=== PATIENT | female | born 1950 | race Caucasian/White ===

== ENCOUNTER 2018-04-26 18:23 | Emergency (ER) | payer MEDICARE, OTHER, SELFPAY ==
[2018-04-26 18:26] VITALS: BP 124/61; PULSE 60; RESP 12; TEMP 36.9; O2SAT 96; BMI 22.9
--- NOTE | 2018-04-26 18:28 | ED.LOWEXIN ---
HPI - Extremity Injury (Lower) General Chief Complaint: Extremity Injury, Lower Stated Complaint: GLF Time Seen by Provider: 04/26/18 18:27 Source: patient and EMS Mode of arrival: EMS Limitations: no limitations History of Present Illness HPI Narrative: Patient is a 68-year-old female who presents with right knee pain. She was on a retaining wall about 4-5 feet when she fell backwards landing on her right knee extended. It is now in a flexed position and she cannot extend it. She has pain laterally no numbness or tingling. No other injuries. She says that her left leg caught her. She did not fall backwards sitter had no pelvic pain MD complaint: knee injury Related Data Home Medications Medication Instructions Recorded Confirmed CALCIUM CARBONATE 1,000 mg PO QDAY #0 05/08/13 Fish Oil (Fish Oil 500 MG Softgel) 850 mg PO Q DAY #0 05/08/13 VITAMIN D (Vitamin D3) 1,000 unit PO QDAY #0 05/08/13 multivitamin [Multiple Vitamins] 1 tab PO QDAY #0 03/21/17 [TURKEY TAIL] Q DAY #0 04/14/17 [TUMERIC] PO BID #0 09/02/17 Previous Rx's Medication Instructions Recorded letrozole [Femara] 2.5 mg PO QDAY #90 tab 06/03/17 Allergies Allergy/AdvReac Type Severity Reaction Status Date / Time adhesive Allergy Mild SENSITIVE Verified 04/26/18 18:39 cephalexin Allergy Mild RASH Verified 04/26/18 18:39 erythromycin base Allergy Mild RASH Verified 04/26/18 18:39 naproxen Allergy Mild RASH Verified 04/26/18 18:39 Penicillins Allergy Mild RASH Verified 04/26/18 18:39 Sulfa (Sulfonamide Allergy Mild RASH Verified 04/26/18 18:39 Antibiotics) morphine AdvReac Mild N/V Verified 04/26/18 18:39 Review of Systems Review of Systems GENERAL: Denies chills, fatigue, malaise, fever, sweats, travel HEENT: Denies sinus pain, ear pain, sore throat, difficulty swallowing, neck pain RESPIRATORY: Denies dyspnea, cough, wheezing, hemoptysis, sputum. CARDIOVASCULAR: Denies chest pain, palpitations, orthopnea, edema GASTROINTESTINAL: Denies nausea, vomiting, abdominal pain, diarrhea, constipation, melena. : Denies dysuria, frequency, incontinence, hematuria, urinary retention, flank pain. MUSCULOSKELETAL: See HPI, denies back pain, pelvic pain, ankle pain SKIN: No rash, no erythema, no pruritus NEUROLOGIC: Denies head injury, headache, weakness, dizziness PSYCHIATRIC: No concerning psychosocial issues. 12 point review of systems is negative except for those stated above and HPI PFSH Medical History Breast cancer (Acute) Surgical History Status post surgery (06/08/13) Social History Smoking Status: Never smoker alcohol intake: never substance use type: does not use Exam Initial Vital Signs Initial Vital Signs: Vital Signs Temperature 98.4 F 04/26/18 18:26 Pulse Rate 60 04/26/18 18:26 Respiratory Rate 12 04/26/18 18:26 Blood Pressure 124/61 H 04/26/18 18:26 Pulse Oximetry 96 04/26/18 18:26 GENERAL: Well-appearing, well-nourished and in no acute distress. HEENT: Head atraumatic,EOMI, pupils reactive, NECK: Supple no vertebral tenderness no step-offs full range of motion CARDIOVASCULAR: Regular rate and rhythm without murmurs, rubs or gallops. RESPIRATORY: Breath sounds equal bilaterally, no wheezes rales or rhonchi. ABDOMEN: Soft, nontender. Normoactive bowel sounds all 4 quadrants. No guarding or rebound. BACK: No vertebral tenderness no step-off no sign of trauma EXTREMITIES: Normal range of motion, no clubbing or edema. Neurovascularly intact -right knee held in flexion no erythema no edema distal pedal pulse intact. Tender over fibular head no ankle or foot deformity pelvis stable no hip pain NEUROLOGICAL: Alert and oriented x4.Normal gait and speech. Cranial nerves II through XII grossly intact. SKIN: Warm, dry, no laceration, no petechiae, no rashes or lesions. Course Orders Ordered: ED Orders 04/26/18 18:28 XR knee RT 3V Stat 04/26/18 18:50 XR ankle RT min 3V Stat XR pelvis 1-2V Stat 04/26/18 20:59 Basic Metabolic Panel Stat 04/26/18 21:30 Complete Blood Count AUTO DIFF Stat Discontinued Medications Morphine Sulfate (Morphine) 2 mg IV NOW ONE Stop: 04/26/18 18:52 Last Admin: 04/26/18 19:11 Dose: 2 mg Morphine Sulfate (Morphine) 2 mg IV NOW ONE Stop: 04/26/18 21:19 Last Admin: 04/26/18 21:19 Dose: 2 mg Ondansetron HCl (Zofran) 4 mg IV NOW ONE Stop: 04/26/18 18:52 Last Admin: 04/26/18 21:37 Dose: Not Given Consultations Consultation #1: Dr. Mtz has reviewed the films himself. Due to significant amount of depression recommends transfer to [facility]. Time: 19:30 Consultation #2: ER physician Dr. Hernandez at [facility] has accepted patient. They are currently boarding 65 patient is in the ED. If able to transfer elsewhere would be appreciated if not, they will accept. Time: 20:00 Consultation #3: Orthopedics Dr. Perez at [facility] has been updated patient's symptoms test results neurological status. Images have been pushed. He does accept patient for transfer. Time: 20:20 Vital Signs - 8 hr 04/26/18 18:26 04/26/18 18:31 04/26/18 21:53 Temperature 98.4 F Pulse Rate 60 74 Pulse Rate [Bilateral Dorsalis Pedis] 60 Respiratory Rate 12 18 Blood Pressure 124/61 H 131/68 H Pulse Oximetry 96 98 MDM - Extremity Injury (Lower) Lab Data Result diagrams: 04/26/18 21:30 04/26/18 20:59 Lab Results 04/26/18 04/26/18 Range/Units 20:59 21:30 WBC 9.7 (4.5-11.0) X10^3/uL RBC 4.09 (4.0-5.2) X10^6/uL Hgb 13.2 (12.0-16.0) g/dL Hct 38.7 (36-46) % MCV 94.7 (80-100) fL MCH 32.2 (26-34) PG MCHC 34.0 (30-36) % RDW 12.8 (11.6-14.8) % Plt Count 203 (150-400) X10^3/uL Neut % (Auto) 86.0 H (50-75) % Lymph % (Auto) 10.0 L (25-40) % [place] % (Auto) 3.6 (3-14) % Eos % (Auto) 0.1 L (2-4) % Baso % (Auto) 0.3 (0-2) % Neut # (Auto) 8300 H (2184-9878) /uL Sodium 138 (137-145) mmol/L Potassium 4.7 (3.4-5.1) mmol/L Chloride 103 (98-107) mmol/L Carbon Dioxide 27 (22-32) mmol/L BUN 14 (7-17) mg/dL Creatinine 0.80 (0.52-1.04) mg/dL Estimated GFR > 60.0 (>60) mL/min BUN/Creatinine Ratio 17.5 (6-22) Glucose 106 (80-110) mg/dL Calcium 9.0 (8.4-10.2) mg/dL Imaging Data Right knee x-r: Radiologist's impression: PROCEDURE: XR KNEE RT 3V INDICATIONS: fall off wall, pain lateraly TECHNIQUE: 2 views of the knee were acquired. COMPARISON: None. FINDINGS: Bones: Lateral tibial plateau fracture with at least 4 mm step-off at the articular surface. Fractures likely involves the tibial spines. Soft tissues: Small joint effusion. No suspicious soft tissue calcifications. IMPRESSION: Lateral tibial plateau fracture. Dictated by: Sammy Helton M.D. on 04/26/2018 at 19:15 Right ankle xray: Radiologist's impression: PROCEDURE: XR ANKLE RT MIN 3V INDICATIONS: right knee fx TECHNIQUE: 3 views of the ankle were acquired. COMPARISON: None. FINDINGS: Bones: No fractures or dislocations. Ankle mortise is normally aligned. No suspicious bony lesions. Soft tissues: No tibiotalar joint effusion. Achilles tendon appears normal. IMPRESSION: No acute fractures or dislocations. Dictated by: Sammy Helton M.D. on 04/26/2018 at 19:29 pelvis xray: Radiologist's impression: PROCEDURE: XR PELVIS 1-2V INDICATIONS: right knee fx TECHNIQUE: Single view(s) of the pelvis acquired. COMPARISON: None. FINDINGS: Bones: No fractures or dislocations. No suspicious bony lesions. Soft tissues: Visualized bowel gas pattern is normal. No suspicious soft tissue calcifications. Abdominal surgical sutures. IMPRESSION: No acute fractures or dislocations. If there is clinical concern for radiographically occult fracture than a noncontrast MRI would be recommended for further evaluation. Dictated by: Sammy Helton M.D. on 04/26/2018 at 19:30 MDM Narrative Medical decision making narrative: Patient and family would prefer [facility] over [facility] transfer due to limited driving ability. [facility] accepts patient. Discharge Plan Departure Patient Disposition: [facility] Clinical Impression: Closed fracture of tibial plateau Discharge Date/Time: 04/26/18 21:45 Interventions: ED Discharge Assessment Last Done: 04/26/18 21:53 Prescriptions: No Action CALCIUM CARBONATE 1,000 mg PO QDAY Qty: 0 RF: 0 Fish Oil (Fish Oil 500 MG Softgel) 850 mg PO Q DAY Qty: 0 RF: 0 VITAMIN D (Vitamin D3) 1,000 unit PO QDAY Qty: 0 RF: 0 multivitamin [Multiple Vitamins] 1 EACH tablet 1 tab PO QDAY Qty: 0 RF: 0 [TURKEY TAIL] Q DAY Qty: 0 RF: 0 letrozole [Femara] 2.5 MG tablet 2.5 mg PO QDAY Qty: 90 RF: 3 [TUMERIC] PO BID Qty: 0 RF: 0
[2018-04-26 18:31] VITALS: PULSE 60
--- NOTE | 2018-04-26 18:50 | DI.RAD.S_ITS ---
PROCEDURE: XR ANKLE RT MIN 3V INDICATIONS: right knee fx TECHNIQUE: 3 views of the ankle were acquired. COMPARISON: None. FINDINGS: Bones: No fractures or dislocations. Ankle mortise is normally aligned. No suspicious bony lesions. Soft tissues: No tibiotalar joint effusion. Achilles tendon appears normal. IMPRESSION: No acute fractures or dislocations. Dictated by: Sammy Helton M.D. on 04/26/2018 at 19:29 Approved by: Sammy Helton M.D. on 04/26/2018 at 19:29
--- NOTE | 2018-04-26 18:50 | DI.RAD.S_ITS ---
PROCEDURE: XR PELVIS 1-2V INDICATIONS: right knee fx TECHNIQUE: Single view(s) of the pelvis acquired. COMPARISON: None. FINDINGS: Bones: No fractures or dislocations. No suspicious bony lesions. Soft tissues: Visualized bowel gas pattern is normal. No suspicious soft tissue calcifications. Abdominal surgical sutures. IMPRESSION: No acute fractures or dislocations. If there is clinical concern for radiographically occult fracture than a noncontrast MRI would be recommended for further evaluation. Dictated by: Sammy Helton M.D. on 04/26/2018 at 19:30 Approved by: Sammy Helton M.D. on 04/26/2018 at 19:31
[2018-04-26] MEDS: MORPHINE 2 MG/ML INJ IV ×2 (19:11→21:19)
--- NOTE | 2018-04-26 20:43 | PC.NURSE ---
Gave report to AYALA Corley at [address] [place] [address].
[2018-04-26 21:33] LABS: BUN Creatinine Ratio 17.5 (6-22); Blood Urea Nitrogen 14 mg/dL (7-17); Carbon Dioxide 27 mmol/L (22-32); Chloride 103 mmol/L (98-107); Estimated Glomerular Filt Rate > 60.0 mL/min (>60); Glucose 106 mg/dL (80-110); Potassium 4.7 mmol/L (3.4-5.1); Sodium 138 mmol/L (137-145)
[2018-04-26 21:35] LABS: HEMOLYSIS 57 (0-50)
[2018-04-26 21:46] LABS: Add Manual Diff / Slide Review NO; Basophils Percent Auto 0.3 % (0-2); Eosinophils Percent Auto 0.1 % (2-4); Hematocrit 38.7 % (36-46); Hemoglobin 13.2 g/dL (12.0-16.0); Mean Corpuscular Hemoglobin 32.2 PG (26-34); Mean Corpuscular Volume 94.7 fL (80-100); Monocytes Percent Auto 3.6 % (3-14); Neutrophils Absolute Auto 8300 /uL (3000-5900); Platelet Count 203 X10^3/uL (150-400); Red Blood Cell Count 4.09 X10^6/uL (4.0-5.2); Red Cell Distribution Width 12.8 % (11.6-14.8); White Blood Cell Count 9.7 X10^3/uL (4.5-11.0)
[2018-04-26 21:53] VITALS: BP 131/68; PULSE 74; RESP 18; O2SAT 98
== END 2018-04-26 21:45 | disposition short-term general hospital (02) ==
PROVIDERS: Emergency Provider Emergency Medicine; Family Provider Family Medicine; PCP Family Medicine
DX: S82.143A Displaced bicondylar fracture of unspecified tibia, initial encounter for closed fracture (principal); W17.89XA Other fall from one level to another, initial encounter
CPT/HCPCS: 29515; 29530; 72170; 73562; 73610; 80048; 85025; 96374; 96375; 96376; 99282; 99285; J2270

== ENCOUNTER → 2018-05-13 08:00 | Outpatient (CLI) | payer MEDICARE, OTHER, SELFPAY ==
[2018-05-13 09:45] LABS: Alanine Aminotransferase 32 IU/L (9-52); Albumin 4.2 g/dL (3.5-5.0); Albumin Globulin Ratio 1.4 (1.0-2.8); Alkaline Phosphatase 74 U/L (38-126); Aspartate Aminotransferase 33 IU/L (14-36); Bilirubin Total 0.6 mg/dL (0.2-1.3); Blood Urea Nitrogen 14 mg/dL (7-17); Calcium 9.5 mg/dL (8.4-10.2); Carbon Dioxide 32 mmol/L (22-32); Chloride 99 mmol/L (98-107); Estimated Glomerular Filt Rate > 60.0 mL/min (>60); Globulin 2.9 g/dL (1.7-4.1); Glucose 101 mg/dL (80-110); HEMOLYSIS < 15 (0-50); Potassium 4.7 mmol/L (3.4-5.1); Sodium 138 mmol/L (137-145); Total Protein 7.1 g/dL (6.3-8.2)
[2018-05-16 15:51] LABS: Cancer Antigen 27.29 14 U/mL (< 38)
== END ==
PROVIDERS: Family Provider Family Medicine; PCP Family Medicine; Visit Provider Internal Medicine Hematology & Oncology
DX: C50.911 Malignant neoplasm of unspecified site of right female breast (principal)
CPT/HCPCS: 36415; 80053; 86300

== ENCOUNTER → 2018-05-23 11:34 | Outpatient (CLI) | payer MEDICARE, OTHER, SELFPAY | PROVIDERS: Family Provider Family Medicine; PCP Family Medicine; Visit Provider Internal Medicine Hematology & Oncology | DX: C50.911 Malignant neoplasm of unspecified site of right female breast (principal); C50.912 Malignant neoplasm of unspecified site of left female breast; M85.80 Other specified disorders of bone density and structure, unspecified site; Z79.811 Long term (current) use of aromatase inhibitors | CPT/HCPCS: 36415 ==

== ENCOUNTER 2018-11-01 11:15 | Outpatient (RCR) | payer MEDICARE, OTHER, SELFPAY ==
--- NOTE | 2018-07-20 12:39 | PT.OIE ---
Current Diagnoses Unspecified abnormalities of gait and mobility (07/19/18) Displaced bicondylar fracture of right tibia, initial encounter for closed fracture (07/19/18) Past Medical History (Last Updated 04/26/18 @ 20:51 by Gin Grey DO) Breast cancer (Acute) Past Surgical History Status post surgery (06/08/13) Provider Visit Care Team Role Provider Type Alex Mcgregor MD Family Provider Physician Primary Care Provider Specialty: Family Practice Address: [address] [place] [address], [id number] Email: Jerardo Venegas MD Attending Provider Non-Staff Specialty: Orthopedic Surgery Address: [address] [place] [address], [id number] Email: Physical Therapy Initial Evaluation PT-OP-A Visit Information Start: 07/19/18 07:53 Freq: Status: Active Protocol: Document 07/19/18 10:15 AMB (Rec: 07/20/18 07:30 AMB [email or web address]) Out-Patient Physical Therapy Visit Information Visit Information Visit Type Initial Evaluation Visit Start Time 10:15 Visit Stop Time 11:00 Total Visit Minutes 45 Visit Number 1 Number of MAGAZINE GRINDER LOADER Visits 0 Evaluation Information Evaluation Date 07/19/18 PT-OP-B Current Condition Start: 07/19/18 07:53 Freq: Status: Active Protocol: Document 07/19/18 10:15 AMB (Rec: 07/20/18 07:30 AMB [email or web address]) Current Condition History of Current Condition Onset Date 04/27/18 Current Complaints Difficulty walking, bending the knee, standing History of Current Condition The patient fell off a retaining wall in April while gardening. She had an ORIF for right lateral tibial plateau fracture. She has been cleared for WBAT as of . She has previously completed home health physical therapy. She lives in a 2 story home with 4 steps to enter (1 railing) with her who has his own mobility deficits and uses a motorized scooter in the community. She is currently using a FWW both in the home and the community. Prior Treatments and Tests Prior home health Treatment Goals Patient/Caregiver Goals Lift 35# into the car to get 's scooter into the trunk. Return to walking around [facility] (2 miles, hilly, without assistive device). Prior Functional Status Baseline Function- ADL's Independent Baseline Function- Mobility Independent Baseline Function- Gait Community ambulator without assistive device Baseline Function- Recreation/Hobbies Gardening Current Functional Impairments (Reported) Functional Limitations- ADL's Ambulates with FWW, has friends bring over meals, Functional Limitations- Mobility/Gait Can't carry anything up or down stairs, must use rail Personal Factors Other Personal Factors That May Effect History of breast cancer 1 Therapy/Recovery year ago, caregiver for her PT-OP-C Subjective Start: 07/19/18 07:53 Freq: Status: Active Protocol: Document 07/19/18 10:15 AMB (Rec: 07/20/18 07:30 AMB [email or web address]) Patient Questionnaires Lower Extremity Functional Scale LEFS Score 27 LEFS Impairment 60 to 79% Impaired (Score 17- 31) OP-PT Pain Assessment Pain Assessment Grid Paper Pain Assessment Grid Completed Yes Location Right Knee Intensity 1 Scale Used Numeric (1 - 10) Description Aching PT-OP-D Balance Start: 07/19/18 07:53 Freq: Status: Active Protocol: Document 07/19/18 10:15 AMB (Rec: 07/20/18 07:30 AMB [email or web address]) OP-PT Balance Assessment Sitting Balance Static Sitting Balance Ability Normal Standing Balance Static Standing Balance Ability Fair Dynamic Standing Balance Ability Fair Device Used FWW Standing Balance Comments Can stand without FWW with WBOS- but difficulty weightbearing fully on R side. Can single leg stand on L for 10 seconds, 3 seconds on R . No current foot pain on R, but initially it hurt after fall. Renteria Fall Scale Copyright Permission Myra JM, Myra RM, Sonja SJ. Development of a scale to identify the fall- prone patient. Can J Aging 1989;8;366-7. [place] Renteria (2009). Preventing patient falls. (2nd ed). Barnes: [place]. PT-OP-G Mobility & Gait Start: 07/19/18 07:53 Freq: Status: Active Protocol: Document 07/19/18 10:15 AMB (Rec: 07/20/18 07:30 AMB [email or web address]) OP Gait Assessment Gait Gait Assistance Required: Standby Assistance Able to Maintain Weight Bearing Status Yes During Gait Assistive Devices Assistive Device Straight Cane Front Wheeled Walker Stair Climbing Evaluation Evaluation Level of Assist On Stairs Standby Assistance Devices Stair Climbing Assistive Devices Left Railing Right Railing Technique/Endurance Stair Climbing Direction Ascend and Descend Stair Climbing Technique Step Over Step Step to Step Number of Steps Climbed 6 Comments Stair Climbing Comments poor control on descend with step over step PT-OP-J Posture/Palpation/Skin Start: 07/20/18 12:35 Freq: Status: Active Protocol: Document 07/19/18 10:15 AMB (Rec: 07/20/18 12:39 AMB [email or web address]) Skin Assessment Edema Assessment Left Leg Edema Degree 1+ Comments From knee into foot PT-OP-K Range of Motion Start: 07/19/18 07:53 Freq: Status: Active Protocol: Document 07/19/18 10:15 AMB (Rec: 07/20/18 08:23 AMB [email or web address]) Knee Goniometric Range of Motion Knee Measured in Degrees Left Knee ROM WFL Yes Right Flexion Active (degrees) 109 Flexion Passive (degrees) 111 Extension Active (degrees) 12 Extension Passive (degrees) 5 PT-OP-M Strength Start: 07/19/18 07:53 Freq: Status: Active Protocol: Document 07/19/18 10:15 AMB (Rec: 07/20/18 08:44 AMB [email or web address]) Hip Strength Hip Manual Muscle Testing Right Flexion (L2) 4+ Good+ Extension (S1) 4 Good Abduction 4 Good Left Flexion (L2) 5 Normal Extension (S1) 5 Normal Abduction 5 Normal Knee Strength Knee Manual Muscle Testing Right Flexion (S2) 4+ Good+ Extension (L3) 4+ Good+ Left Flexion (S2) 5 Normal Extension (L3) 5 Normal Ankle/Foot Strength Ankle and Foot Manual Muscle Testing Right Dorsiflexion (L4) 4 Good Plantarflexion (S1) 4 Good Left Dorsiflexion (L4) 5 Normal Plantarflexion (S1) 5 Normal PT-OP-Q Treatments Start: 07/19/18 07:53 Freq: Status: Active Protocol: Document 07/19/18 10:15 AMB (Rec: 07/20/18 08:44 AMB [email or web address]) Gait Training Gait Activity 2 Description stairs Device Used 2 railings Level of Assistance SBA Comments step to then alternating steps 1 Description smooth surface Device Used SPC Level of Assistance verbal cues Comments in // bars to start PT-OP-T Assessment and Plan Start: 07/19/18 07:53 Freq: Status: Active Protocol: Document 07/19/18 10:15 AMB (Rec: 07/20/18 08:44 AMB [email or web address]) Physical Therapy Assessment Rehab Potential Rehabilitation Potential Excellent Evaluation Complexity Number of Personal Factors/Comorbidities 1-2 Number of Body Systems Impaired 4 or More Clinical Presentation at Evaluation Evolving Impairments Impairments Activity Tolerance Balance Edema Functional Mobility Gait Pain ROM Strength Goals Three Impairment Strength Short Term Goal (STG) The patient will improve her LE strength so that she can safely ascend and descend a flight of stairs without needing a railing. STG Duration 4 weeks Data Entry Analyst Goal (LTG) The patient will improve her LE strength so that she can perform a full squat to lift 35# from the floor to waist level with good body mechanics . LTG Duration 8 weeks Two Impairment Range of motion Short Term Goal (STG) The patient will improve her active knee flexion to 120 degrees. STG Duration 4 weeks One Impairment Gait Short Term Goal (STG) The patient will ambulate with a SPC for 10 minutes with 1/ 10 knee pain or less. STG Duration 4 weeks Data Entry Analyst Goal (LTG) The patient will ambulate without an assistive device for 30 minutes without an increase in baseline pain. LTG Duration 8 weeks Assessment Summary Assessment The patient presents almost 2 months s/p ORIF for tibial plateau fracture. She is WBAT , but will need to progress significantly to return to her prior baseline of walking 4 miles per day. PT will assist the patient with strengthening (she continues to have functional weakness that makes controlling the knee during stair descent very difficult), improving range of motion, balance, and reducing her reliance on assistive devices and equalizing her weightbearing. Physical Therapy Plan Frequency and Duration Frequency of Treatment 2x/Week Duration of Treatment 8 weeks Plan of Care Start Date 07/19/18 Plan of Care End Date 09/13/18 Next Visit Focus/Plan Next Note Type Treatment Note Next Visit Plan Recumbent bike vs stepper. Quad strengthening. Progress gait/stair/balance training.
--- NOTE | 2018-07-20 12:42 | PT.OPPOC ---
Current Diagnoses Unspecified abnormalities of gait and mobility (07/19/18) Displaced bicondylar fracture of right tibia, initial encounter for closed fracture (07/19/18) Provider Visit Care Team Role Provider Type Alex Mcgregor MD Family Provider Physician Primary Care Provider Specialty: Family Practice Address: [address] [place] [address], [id number] Email: Jerardo Venegas MD Attending Provider Non-Staff Specialty: Orthopedic Surgery Address: [address] [place] [address], [id number] Email: Plan Of Care PT-OP-T Assessment and Plan Start: 07/19/18 07:53 Freq: Status: Active Protocol: Document 07/19/18 10:15 AMB (Rec: 07/20/18 08:44 AMB [email or web address]) Physical Therapy Assessment Rehab Potential Rehabilitation Potential Excellent Evaluation Complexity Number of Personal Factors/Comorbidities 1-2 Number of Body Systems Impaired 4 or More Clinical Presentation at Evaluation Evolving Impairments Impairments Activity Tolerance Balance Edema Functional Mobility Gait Pain ROM Strength Goals Three Impairment Strength Short Term Goal (STG) The patient will improve her LE strength so that she can safely ascend and descend a flight of stairs without needing a railing. STG Duration 4 weeks Pediatric Np Goal (LTG) The patient will improve her LE strength so that she can perform a full squat to lift 35# from the floor to waist level with good body mechanics . LTG Duration 8 weeks Two Impairment Range of motion Short Term Goal (STG) The patient will improve her active knee flexion to 120 degrees. STG Duration 4 weeks One Impairment Gait Short Term Goal (STG) The patient will ambulate with a SPC for 10 minutes with 1/ 10 knee pain or less. STG Duration 4 weeks Pediatric Np Goal (LTG) The patient will ambulate without an assistive device for 30 minutes without an increase in baseline pain. LTG Duration 8 weeks Assessment Summary Assessment The patient presents almost 2 months s/p ORIF for tibial plateau fracture. She is WBAT , but will need to progress significantly to return to her prior baseline of walking 4 miles per day. PT will assist the patient with strengthening (she continues to have functional weakness that makes controlling the knee during stair descent very difficult), improving range of motion, balance, and reducing her reliance on assistive devices and equalizing her weightbearing. Physical Therapy Plan Frequency and Duration Frequency of Treatment 2x/Week Duration of Treatment 8 weeks Plan of Care Start Date 07/19/18 Plan of Care End Date 09/13/18 Next Visit Focus/Plan Next Note Type Treatment Note Next Visit Plan Recumbent bike vs stepper. Quad strengthening. Progress gait/stair/balance training. Plan of Care Dates Plan of Care Start Date 07/19/18 Plan of Care End Date 09/13/18 Please Sign and Return: I have reviewed this Plan of Care and certify that the skilled therapy services above are required to meet the patient?s needs. Physician Signature Date Printed Name and Credentials Clinical Instructor Signature Printed Name and Credentials
--- NOTE | 2018-07-21 16:12 | PT.OTN ---
Current Diagnoses Displaced bicondylar fracture of right tibia, initial encounter for closed fracture (07/21/18) Physical Therapy Treatment Note PT-OP-A Visit Information Start: 07/19/18 07:53 Freq: Status: Active Protocol: Document 07/21/18 13:00 AMB (Rec: 07/21/18 13:07 AMB [id number]) Out-Patient Physical Therapy Visit Information Visit Information Visit Type Treatment Note Visit Start Time 13:00 Visit Stop Time 13:45 Total Visit Minutes 45 Visit Number 2 PT-OP-B Current Condition Start: 07/19/18 07:53 Freq: Status: Active Protocol: Document 07/19/18 10:15 AMB (Rec: 07/20/18 07:30 AMB [email or web address]) Current Condition History of Current Condition Onset Date 04/27/18 Current Complaints Difficulty walking, bending the knee, standing History of Current Condition The patient fell off a retaining wall in April while gardening. She had an ORIF for right lateral tibial plateau fracture. She has been cleared for WBAT as of . She has previously completed home health physical therapy. She lives in a 2 story home with 4 steps to enter (1 railing) with her who has his own mobility deficits and uses a motorized scooter in the community. She is currently using a FWW both in the home and the community. Prior Treatments and Tests Prior home health Treatment Goals Patient/Caregiver Goals Lift 35# into the car to get 's scooter into the trunk. Return to walking around [facility] (2 miles, hilly, without assistive device). Prior Functional Status Baseline Function- ADL's Independent Baseline Function- Mobility Independent Baseline Function- Gait Community ambulator without assistive device Baseline Function- Recreation/Hobbies Gardening Current Functional Impairments (Reported) Functional Limitations- ADL's Ambulates with FWW, has friends bring over meals, Functional Limitations- Mobility/Gait Can't carry anything up or down stairs, must use rail Personal Factors Other Personal Factors That May Effect History of breast cancer 1 Therapy/Recovery year ago, caregiver for her PT-OP-C Subjective Start: 07/19/18 07:53 Freq: Status: Active Protocol: Document 07/21/18 13:00 AMB (Rec: 07/21/18 13:07 AMB [id number]) OP-PT Subjective Patient Comments Patient Comments Pt reports not especially sore after last visit, using the stairs at home, some cane but still mostly FWW. PT-OP-D Balance Start: 07/19/18 07:53 Freq: Status: Active Protocol: Document 07/19/18 10:15 AMB (Rec: 07/20/18 07:30 AMB [email or web address]) OP-PT Balance Assessment Sitting Balance Static Sitting Balance Ability Normal Standing Balance Static Standing Balance Ability Fair Dynamic Standing Balance Ability Fair Device Used FWW Standing Balance Comments Can stand without FWW with WBOS- but difficulty weightbearing fully on R side. Can single leg stand on L for 10 seconds, 3 seconds on R . No current foot pain on R, but initially it hurt after fall. Myra Fall Scale Copyright Permission Myra JM, Myra RM, Sonja SJ. Development of a scale to identify the fall- prone patient. Can J Aging 1989;8;366-7. Vernon Renteria (2009). Preventing patient falls. (2nd ed). [place]: [place]. PT-OP-G Mobility & Gait Start: 07/19/18 07:53 Freq: Status: Active Protocol: Document 07/19/18 10:15 AMB (Rec: 07/20/18 07:30 AMB [email or web address]) OP Gait Assessment Gait Gait Assistance Required: Standby Assistance Able to Maintain Weight Bearing Status Yes During Gait Assistive Devices Assistive Device Straight Cane Front Wheeled Walker Stair Climbing Evaluation Evaluation Level of Assist On Stairs Standby Assistance Devices Stair Climbing Assistive Devices Left Railing Right Railing Technique/Endurance Stair Climbing Direction Ascend and Descend Stair Climbing Technique Step Over Step Step to Step Number of Steps Climbed 6 Comments Stair Climbing Comments poor control on descend with step over step PT-OP-J Posture/Palpation/Skin Start: 07/20/18 12:35 Freq: Status: Active Protocol: Document 07/19/18 10:15 AMB (Rec: 07/20/18 12:39 AMB [email or web address]) Skin Assessment Edema Assessment Left Leg Edema Degree 1+ Comments From knee into foot PT-OP-K Range of Motion Start: 07/19/18 07:53 Freq: Status: Active Protocol: Document 07/19/18 10:15 AMB (Rec: 07/20/18 08:23 AMB [email or web address]) Knee Goniometric Range of Motion Knee Measured in Degrees Left Knee ROM WFL Yes Right Flexion Active (degrees) 109 Flexion Passive (degrees) 111 Extension Active (degrees) 12 Extension Passive (degrees) 5 PT-OP-M Strength Start: 07/19/18 07:53 Freq: Status: Active Protocol: Document 07/19/18 10:15 AMB (Rec: 07/20/18 08:44 AMB [email or web address]) Hip Strength Hip Manual Muscle Testing Right Flexion (L2) 4+ Good+ Extension (S1) 4 Good Abduction 4 Good Left Flexion (L2) 5 Normal Extension (S1) 5 Normal Abduction 5 Normal Knee Strength Knee Manual Muscle Testing Right Flexion (S2) 4+ Good+ Extension (L3) 4+ Good+ Left Flexion (S2) 5 Normal Extension (L3) 5 Normal Ankle/Foot Strength Ankle and Foot Manual Muscle Testing Right Dorsiflexion (L4) 4 Good Plantarflexion (S1) 4 Good Left Dorsiflexion (L4) 5 Normal Plantarflexion (S1) 5 Normal PT-OP-Q Treatments Start: 07/19/18 07:53 Freq: Status: Active Protocol: Document 07/21/18 13:00 AMB (Rec: 07/21/18 16:01 AMB [email or web address]) Cardio Equipment Recumbent Bicycle Duration (Minutes) 7 Resistance 1 Seat Position 4 then 3 Gym Equipment Shuttle Recovery Unilateral Squats Resistance 50 Reps/Time 5 min Therapeutic Exercises Supine Exercises 3 Supine Exercise Name TKA Resistance 5# Reps/Minutes 2x10 2 Supine Exercise Name calf stretch Reps/Minutes 30x2 1 Supine Exercise Name hamstring stretch Reps/Minutes 30x2 Standing Exercises 1 Standing Exercise Name step ups 6 Reps/Minutes 2 min Comments vc for slow descent Other Exercises 1 Other Exercise Name kneeling tolerance with small jayjay pose Gait Training Gait Activity 1 Description smooth surface Device Used SPC Level of Assistance verbal cues PT-OP-R Modalities Start: 07/19/18 07:53 Freq: Status: Active Protocol: Document 07/21/18 13:00 AMB (Rec: 07/21/18 16:01 AMB [email or web address]) Hot Pack/Cold Pack Treatment Cold Pack Location knee Patient Position Hooklying Treatment Duration (minutes) 10 PT-OP-T Assessment and Plan Start: 07/19/18 07:53 Freq: Status: Active Protocol: Document 07/21/18 13:00 AMB (Rec: 07/21/18 16:01 AMB [email or web address]) Physical Therapy Assessment Assessment Summary Assessment Pt tolerated treatment well, knee flexion continues to be limited, quad strengthening a priority in closed chain, as pt feels knee is wobbly. Physical Therapy Plan Next Visit Focus/Plan Next Note Type Treatment Note Next Visit Plan Getting walker out of car safely without assistance
--- NOTE | 2018-07-24 10:52 | PT.OTN ---
Current Diagnoses Displaced bicondylar fracture of right tibia, initial encounter for closed fracture (07/24/18) Physical Therapy Treatment Note PT-OP-A Visit Information Start: 07/19/18 07:53 Freq: Status: Active Protocol: Document 07/24/18 09:00 AMB (Rec: 07/24/18 09:06 AMB [id number]) Out-Patient Physical Therapy Visit Information Visit Information Visit Type Treatment Note Visit Start Time 09:00 Visit Stop Time 09:45 Total Visit Minutes 45 Visit Number 3 Evaluation Information Evaluation Date 07/19/18 PT-OP-B Current Condition Start: 07/19/18 07:53 Freq: Status: Active Protocol: Document 07/19/18 10:15 AMB (Rec: 07/20/18 07:30 AMB [email or web address]) Current Condition History of Current Condition Onset Date 04/27/18 Current Complaints Difficulty walking, bending the knee, standing History of Current Condition The patient fell off a retaining wall in April while gardening. She had an ORIF for right lateral tibial plateau fracture. She has been cleared for WBAT as of . She has previously completed home health physical therapy. She lives in a 2 story home with 4 steps to enter (1 railing) with her who has his own mobility deficits and uses a motorized scooter in the community. She is currently using a FWW both in the home and the community. Prior Treatments and Tests Prior home health Treatment Goals Patient/Caregiver Goals Lift 35# into the car to get 's scooter into the trunk. Return to walking around [facility] (2 miles, hilly, without assistive device). Prior Functional Status Baseline Function- ADL's Independent Baseline Function- Mobility Independent Baseline Function- Gait Community ambulator without assistive device Baseline Function- Recreation/Hobbies Gardening Current Functional Impairments (Reported) Functional Limitations- ADL's Ambulates with FWW, has friends bring over meals, Functional Limitations- Mobility/Gait Can't carry anything up or down stairs, must use rail Personal Factors Other Personal Factors That May Effect History of breast cancer 1 Therapy/Recovery year ago, caregiver for her PT-OP-C Subjective Start: 07/19/18 07:53 Freq: Status: Active Protocol: Document 07/24/18 09:00 AMB (Rec: 07/24/18 09:06 AMB [id number]) OP-PT Subjective Patient Comments Patient Comments Pt reports she practiced going up and down the stairs 10 times, she was a bit sore after that. PT-OP-D Balance Start: 07/19/18 07:53 Freq: Status: Active Protocol: Document 07/19/18 10:15 AMB (Rec: 07/20/18 07:30 AMB [email or web address]) OP-PT Balance Assessment Sitting Balance Static Sitting Balance Ability Normal Standing Balance Static Standing Balance Ability Fair Dynamic Standing Balance Ability Fair Device Used FWW Standing Balance Comments Can stand without FWW with WBOS- but difficulty weightbearing fully on R side. Can single leg stand on L for 10 seconds, 3 seconds on R . No current foot pain on R, but initially it hurt after fall. Renteria Fall Scale Copyright Permission Myra BUNN, Myra RM, Sonja SJ. Development of a scale to identify the fall- prone patient. Can J Aging 1989;8;366-7. Vernon Renteria (2009). Preventing patient falls. (2nd ed). [place]: [place]. PT-OP-G Mobility & Gait Start: 07/19/18 07:53 Freq: Status: Active Protocol: Document 07/19/18 10:15 AMB (Rec: 07/20/18 07:30 AMB [email or web address]) OP Gait Assessment Gait Gait Assistance Required: Standby Assistance Able to Maintain Weight Bearing Status Yes During Gait Assistive Devices Assistive Device Straight Cane Front Wheeled Walker Stair Climbing Evaluation Evaluation Level of Assist On Stairs Standby Assistance Devices Stair Climbing Assistive Devices Left Railing Right Railing Technique/Endurance Stair Climbing Direction Ascend and Descend Stair Climbing Technique Step Over Step Step to Step Number of Steps Climbed 6 Comments Stair Climbing Comments poor control on descend with step over step PT-OP-J Posture/Palpation/Skin Start: 07/20/18 12:35 Freq: Status: Active Protocol: Document 07/19/18 10:15 AMB (Rec: 07/20/18 12:39 AMB [email or web address]) Skin Assessment Edema Assessment Left Leg Edema Degree 1+ Comments From knee into foot PT-OP-K Range of Motion Start: 07/19/18 07:53 Freq: Status: Active Protocol: Document 07/19/18 10:15 AMB (Rec: 07/20/18 08:23 AMB [email or web address]) Knee Goniometric Range of Motion Knee Measured in Degrees Left Knee ROM WFL Yes Right Flexion Active (degrees) 109 Flexion Passive (degrees) 111 Extension Active (degrees) 12 Extension Passive (degrees) 5 PT-OP-M Strength Start: 07/19/18 07:53 Freq: Status: Active Protocol: Document 07/19/18 10:15 AMB (Rec: 07/20/18 08:44 AMB [email or web address]) Hip Strength Hip Manual Muscle Testing Right Flexion (L2) 4+ Good+ Extension (S1) 4 Good Abduction 4 Good Left Flexion (L2) 5 Normal Extension (S1) 5 Normal Abduction 5 Normal Knee Strength Knee Manual Muscle Testing Right Flexion (S2) 4+ Good+ Extension (L3) 4+ Good+ Left Flexion (S2) 5 Normal Extension (L3) 5 Normal Ankle/Foot Strength Ankle and Foot Manual Muscle Testing Right Dorsiflexion (L4) 4 Good Plantarflexion (S1) 4 Good Left Dorsiflexion (L4) 5 Normal Plantarflexion (S1) 5 Normal PT-OP-Q Treatments Start: 07/19/18 07:53 Freq: Status: Active Protocol: Document 07/24/18 09:00 AMB (Rec: 07/24/18 09:04 AMB [id number]) Cardio Equipment Recumbent Bicycle Duration (Minutes) 7 Resistance 1 Seat Position 4 then 3 Gym Equipment Cable Column (Body Solid) Leg Extension Resistance 1 plate Reps/Time 2x10 Leg Curl Resistance 2 plates Reps/Time 2x10 Shuttle Balance 1 Details YELLOW Reps/Duration 10 min Comments WBOS then stride stance. EC balance. squats lunges. Therapeutic Exercises Supine Exercises 2 Supine Exercise Name calf stretch Reps/Minutes 30x2 Comments on MIKE 1 Supine Exercise Name hamstring stretch Reps/Minutes 30x2 Standing Exercises 2 Standing Exercise Name lunges with UE support Comments forward 1 Standing Exercise Name step ups 6 Reps/Minutes 2 min Comments vc for slow descent Gait Training Gait Activity 2 Description hurdles with SPC Comments CGA 1 Description smooth surface Device Used SPC Level of Assistance verbal cues PT-OP-R Modalities Start: 07/19/18 07:53 Freq: Status: Active Protocol: Document 07/24/18 09:00 AMB (Rec: 07/24/18 09:04 AMB [id number]) Hot Pack/Cold Pack Treatment Cold Pack Location knee Patient Position Hooklying Treatment Duration (minutes) 10 PT-OP-T Assessment and Plan Start: 07/19/18 07:53 Freq: Status: Active Protocol: Document 07/24/18 09:00 AMB (Rec: 07/24/18 10:49 AMB [email or web address]) Physical Therapy Assessment Assessment Summary Assessment Encouraged pt to take rest breaks throughout the day, as she does feel more of hte knee giving way when she is tired. Pt improving with SPC but continues to need to be careful. Physical Therapy Plan Next Visit Focus/Plan Next Note Type Treatment Note Next Visit Plan Lifting with squat training to put scooter in car.
--- NOTE | 2018-07-26 12:00 | PT.OTN ---
Current Diagnoses Displaced bicondylar fracture of right tibia, initial encounter for closed fracture (07/26/18) Physical Therapy Treatment Note PT-OP-A Visit Information Start: 07/19/18 07:53 Freq: Status: Active Protocol: Document 07/26/18 09:50 AMB (Rec: 07/26/18 10:05 AMB [id number]) Out-Patient Physical Therapy Visit Information Visit Information Visit Type Treatment Note Visit Start Time 09:00 Visit Stop Time 09:45 Total Visit Minutes 45 Visit Number 4 Evaluation Information Evaluation Date 07/19/18 PT-OP-B Current Condition Start: 07/19/18 07:53 Freq: Status: Active Protocol: Document 07/19/18 10:15 AMB (Rec: 07/20/18 07:30 AMB [email or web address]) Current Condition History of Current Condition Onset Date 04/27/18 Current Complaints Difficulty walking, bending the knee, standing History of Current Condition The patient fell off a retaining wall in April while gardening. She had an ORIF for right lateral tibial plateau fracture. She has been cleared for WBAT as of . She has previously completed home health physical therapy. She lives in a 2 story home with 4 steps to enter (1 railing) with her who has his own mobility deficits and uses a motorized scooter in the community. She is currently using a FWW both in the home and the community. Prior Treatments and Tests Prior home health Treatment Goals Patient/Caregiver Goals Lift 35# into the car to get 's scooter into the trunk. Return to walking around [facility] (2 miles, hilly, without assistive device). Prior Functional Status Baseline Function- ADL's Independent Baseline Function- Mobility Independent Baseline Function- Gait Community ambulator without assistive device Baseline Function- Recreation/Hobbies Gardening Current Functional Impairments (Reported) Functional Limitations- ADL's Ambulates with FWW, has friends bring over meals, Functional Limitations- Mobility/Gait Can't carry anything up or down stairs, must use rail Personal Factors Other Personal Factors That May Effect History of breast cancer 1 Therapy/Recovery year ago, caregiver for her PT-OP-C Subjective Start: 07/19/18 07:53 Freq: Status: Active Protocol: Document 07/26/18 09:50 AMB (Rec: 07/26/18 10:05 AMB [id number]) OP-PT Subjective Patient Comments Patient Comments Pt has been out and about a bit more, with friends driving PT-OP-D Balance Start: 07/19/18 07:53 Freq: Status: Active Protocol: Document 07/19/18 10:15 AMB (Rec: 07/20/18 07:30 AMB [email or web address]) OP-PT Balance Assessment Sitting Balance Static Sitting Balance Ability Normal Standing Balance Static Standing Balance Ability Fair Dynamic Standing Balance Ability Fair Device Used FWW Standing Balance Comments Can stand without FWW with WBOS- but difficulty weightbearing fully on R side. Can single leg stand on L for 10 seconds, 3 seconds on R . No current foot pain on R, but initially it hurt after fall. Renteria Fall Scale Copyright Permission Myra JM, Myra RM, Sonja SJ. Development of a scale to identify the fall- prone patient. Can J Aging 1989;8;366-7. Vernon Renteria (2009). Preventing patient falls. (2nd ed). [place]: [place]. PT-OP-G Mobility & Gait Start: 07/19/18 07:53 Freq: Status: Active Protocol: Document 07/19/18 10:15 AMB (Rec: 07/20/18 07:30 AMB [email or web address]) OP Gait Assessment Gait Gait Assistance Required: Standby Assistance Able to Maintain Weight Bearing Status Yes During Gait Assistive Devices Assistive Device Straight Cane Front Wheeled Walker Stair Climbing Evaluation Evaluation Level of Assist On Stairs Standby Assistance Devices Stair Climbing Assistive Devices Left Railing Right Railing Technique/Endurance Stair Climbing Direction Ascend and Descend Stair Climbing Technique Step Over Step Step to Step Number of Steps Climbed 6 Comments Stair Climbing Comments poor control on descend with step over step PT-OP-J Posture/Palpation/Skin Start: 07/20/18 12:35 Freq: Status: Active Protocol: Document 07/19/18 10:15 AMB (Rec: 07/20/18 12:39 AMB [email or web address]) Skin Assessment Edema Assessment Left Leg Edema Degree 1+ Comments From knee into foot PT-OP-K Range of Motion Start: 07/19/18 07:53 Freq: Status: Active Protocol: Document 07/19/18 10:15 AMB (Rec: 07/20/18 08:23 AMB [email or web address]) Knee Goniometric Range of Motion Knee Measured in Degrees Left Knee ROM WFL Yes Right Flexion Active (degrees) 109 Flexion Passive (degrees) 111 Extension Active (degrees) 12 Extension Passive (degrees) 5 PT-OP-M Strength Start: 07/19/18 07:53 Freq: Status: Active Protocol: Document 07/19/18 10:15 AMB (Rec: 07/20/18 08:44 AMB [email or web address]) Hip Strength Hip Manual Muscle Testing Right Flexion (L2) 4+ Good+ Extension (S1) 4 Good Abduction 4 Good Left Flexion (L2) 5 Normal Extension (S1) 5 Normal Abduction 5 Normal Knee Strength Knee Manual Muscle Testing Right Flexion (S2) 4+ Good+ Extension (L3) 4+ Good+ Left Flexion (S2) 5 Normal Extension (L3) 5 Normal Ankle/Foot Strength Ankle and Foot Manual Muscle Testing Right Dorsiflexion (L4) 4 Good Plantarflexion (S1) 4 Good Left Dorsiflexion (L4) 5 Normal Plantarflexion (S1) 5 Normal PT-OP-Q Treatments Start: 07/19/18 07:53 Freq: Status: Active Protocol: Document 07/26/18 09:45 AMB (Rec: 07/27/18 07:20 AMB [email or web address]) Cardio Equipment Recumbent Bicycle Duration (Minutes) 7 Resistance 4 Seat Position 4 then 3 Gym Equipment Shuttle Recovery Unilateral Squats Resistance 50 Reps/Time 5 min Therapeutic Exercises Sitting Exercises 1 Sitting Exercise Name seated knee stretch Standing Exercises 4 Standing Exercise Name squat and lift Reps/Minutes 12# Comments floor to waist height 3 Standing Exercise Name sidestepping YTB resistance Comments with and without rail support 2 Standing Exercise Name lunges with UE support Comments forward Gait Training Gait Activity 2 Description stairs Device Used 1 railings Level of Assistance SBA Comments step to then alternating steps 1 Description smooth surface Device Used SPC Level of Assistance verbal cues PT-OP-R Modalities Start: 07/19/18 07:53 Freq: Status: Active Protocol: Document 07/26/18 09:45 AMB (Rec: 07/27/18 07:20 AMB [email or web address]) Hot Pack/Cold Pack Treatment Cold Pack Location knee Patient Position Hooklying Treatment Duration (minutes) 10 PT-OP-T Assessment and Plan Start: 07/19/18 07:53 Freq: Status: Active Protocol: Document 07/26/18 09:45 AMB (Rec: 07/27/18 07:20 AMB [email or web address]) Physical Therapy Assessment Assessment Summary Assessment Encouarged pt to continue SPC training at home, continue to use FWW in community. Physical Therapy Plan Next Visit Focus/Plan Next Note Type Treatment Note Next Visit Plan Progress gait/ balance without UE support
--- NOTE | 2018-07-31 12:00 | PT.OTN ---
Current Diagnoses Displaced bicondylar fracture of right tibia, initial encounter for closed fracture (07/31/18) Physical Therapy Treatment Note PT-OP-A Visit Information Start: 07/19/18 07:53 Freq: Status: Active Protocol: Document 07/31/18 09:00 AMB (Rec: 07/31/18 10:08 AMB [id number]) Out-Patient Physical Therapy Visit Information Visit Information Visit Type Treatment Note Visit Start Time 09:00 Visit Stop Time 09:45 Total Visit Minutes 45 Visit Number 5 PT-OP-B Current Condition Start: 07/19/18 07:53 Freq: Status: Active Protocol: Document 07/19/18 10:15 AMB (Rec: 07/20/18 07:30 AMB [email or web address]) Current Condition History of Current Condition Onset Date 04/27/18 Current Complaints Difficulty walking, bending the knee, standing History of Current Condition The patient fell off a retaining wall in April while gardening. She had an ORIF for right lateral tibial plateau fracture. She has been cleared for WBAT as of . She has previously completed home health physical therapy. She lives in a 2 story home with 4 steps to enter (1 railing) with her who has his own mobility deficits and uses a motorized scooter in the community. She is currently using a FWW both in the home and the community. Prior Treatments and Tests Prior home health Treatment Goals Patient/Caregiver Goals Lift 35# into the car to get 's scooter into the trunk. Return to walking around [facility] (2 miles, hilly, without assistive device). Prior Functional Status Baseline Function- ADL's Independent Baseline Function- Mobility Independent Baseline Function- Gait Community ambulator without assistive device Baseline Function- Recreation/Hobbies Gardening Current Functional Impairments (Reported) Functional Limitations- ADL's Ambulates with FWW, has friends bring over meals, Functional Limitations- Mobility/Gait Can't carry anything up or down stairs, must use rail Personal Factors Other Personal Factors That May Effect History of breast cancer 1 Therapy/Recovery year ago, caregiver for her PT-OP-C Subjective Start: 07/19/18 07:53 Freq: Status: Active Protocol: Document 07/31/18 09:00 AMB (Rec: 07/31/18 10:08 AMB [id number]) OP-PT Subjective Patient Comments Patient Comments The patient reports she has a 4WW now and will be using that to walk at the [facility]. PT-OP-D Balance Start: 07/19/18 07:53 Freq: Status: Active Protocol: Document 07/19/18 10:15 AMB (Rec: 07/20/18 07:30 AMB [email or web address]) OP-PT Balance Assessment Sitting Balance Static Sitting Balance Ability Normal Standing Balance Static Standing Balance Ability Fair Dynamic Standing Balance Ability Fair Device Used FWW Standing Balance Comments Can stand without FWW with WBOS- but difficulty weightbearing fully on R side. Can single leg stand on L for 10 seconds, 3 seconds on R . No current foot pain on R, but initially it hurt after fall. Renteria Fall Scale Copyright Permission Myra JM, Myra RM, Sonja SJ. Development of a scale to identify the fall- prone patient. Can J Aging 1989;8;366-7. Vernon Renteria (2009). Preventing patient falls. (2nd ed). [place]: [place]. PT-OP-G Mobility & Gait Start: 07/19/18 07:53 Freq: Status: Active Protocol: Document 07/19/18 10:15 AMB (Rec: 07/20/18 07:30 AMB [email or web address]) OP Gait Assessment Gait Gait Assistance Required: Standby Assistance Able to Maintain Weight Bearing Status Yes During Gait Assistive Devices Assistive Device Straight Cane Front Wheeled Walker Stair Climbing Evaluation Evaluation Level of Assist On Stairs Standby Assistance Devices Stair Climbing Assistive Devices Left Railing Right Railing Technique/Endurance Stair Climbing Direction Ascend and Descend Stair Climbing Technique Step Over Step Step to Step Number of Steps Climbed 6 Comments Stair Climbing Comments poor control on descend with step over step PT-OP-J Posture/Palpation/Skin Start: 07/20/18 12:35 Freq: Status: Active Protocol: Document 07/19/18 10:15 AMB (Rec: 07/20/18 12:39 AMB [email or web address]) Skin Assessment Edema Assessment Left Leg Edema Degree 1+ Comments From knee into foot PT-OP-K Range of Motion Start: 07/19/18 07:53 Freq: Status: Active Protocol: Document 07/19/18 10:15 AMB (Rec: 07/20/18 08:23 AMB [email or web address]) Knee Goniometric Range of Motion Knee Measured in Degrees Left Knee ROM WFL Yes Right Flexion Active (degrees) 109 Flexion Passive (degrees) 111 Extension Active (degrees) 12 Extension Passive (degrees) 5 PT-OP-M Strength Start: 07/19/18 07:53 Freq: Status: Active Protocol: Document 07/19/18 10:15 AMB (Rec: 07/20/18 08:44 AMB [email or web address]) Hip Strength Hip Manual Muscle Testing Right Flexion (L2) 4+ Good+ Extension (S1) 4 Good Abduction 4 Good Left Flexion (L2) 5 Normal Extension (S1) 5 Normal Abduction 5 Normal Knee Strength Knee Manual Muscle Testing Right Flexion (S2) 4+ Good+ Extension (L3) 4+ Good+ Left Flexion (S2) 5 Normal Extension (L3) 5 Normal Ankle/Foot Strength Ankle and Foot Manual Muscle Testing Right Dorsiflexion (L4) 4 Good Plantarflexion (S1) 4 Good Left Dorsiflexion (L4) 5 Normal Plantarflexion (S1) 5 Normal PT-OP-Q Treatments Start: 07/19/18 07:53 Freq: Status: Active Protocol: Document 07/31/18 09:00 AMB (Rec: 07/31/18 09:09 AMB [id number]) Cardio Equipment Bicycle (Upright) Duration (Minutes) 6 Resistance 4 Seat Position 3 Gym Equipment Shuttle Recovery Unilateral Squats Resistance 62# Reps/Time 5 min Therapeutic Exercises Supine Exercises 2 Supine Exercise Name calf stretch Reps/Minutes 30x2 Comments on MIKE 1 Supine Exercise Name hamstring stretch Reps/Minutes 30x2 Standing Exercises 4 Standing Exercise Name squat and lift Reps/Minutes 20# Comments floor to waist height 2 Standing Exercise Name lunges with UE support Comments forward 1 Standing Exercise Name step ups Comments 6 step, vc control descent Gait Training Gait Activity 2 Description stairs Device Used 1 railings Level of Assistance SBA Comments step to then alternating steps 1 Description smooth surface Device Used SPC Level of Assistance verbal cues PT-OP-R Modalities Start: 07/19/18 07:53 Freq: Status: Active Protocol: Document 07/31/18 09:00 AMB (Rec: 07/31/18 11:58 AMB [email or web address]) Hot Pack/Cold Pack Treatment Cold Pack Location knee Patient Position Hooklying Treatment Duration (minutes) 10 PT-OP-T Assessment and Plan Start: 07/19/18 07:53 Freq: Status: Active Protocol: Document 07/31/18 09:00 AMB (Rec: 07/31/18 11:16 AMB [email or web address]) Physical Therapy Assessment Assessment Summary Assessment Pt to progress gait with 4WW in community. Good job lifting and carrying today. Physical Therapy Plan Next Visit Focus/Plan Next Note Type Treatment Note Next Visit Plan Progress gait/ balance without UE support
--- NOTE | 2018-08-03 13:45 | PT.OTN ---
Current Diagnoses Displaced bicondylar fracture of right tibia, initial encounter for closed fracture (08/03/18) Physical Therapy Treatment Note PT-OP-A Visit Information Start: 07/19/18 07:53 Freq: Status: Active Protocol: Document 08/03/18 13:45 AMB (Rec: 08/03/18 13:54 AMB [id number]) Out-Patient Physical Therapy Visit Information Visit Information Visit Type Treatment Note Visit Start Time 13:45 Visit Stop Time 14:30 Total Visit Minutes 45 Visit Number 6 Evaluation Information Evaluation Date 07/19/18 PT-OP-B Current Condition Start: 07/19/18 07:53 Freq: Status: Active Protocol: Document 07/19/18 10:15 AMB (Rec: 07/20/18 07:30 AMB [email or web address]) Current Condition History of Current Condition Onset Date 04/27/18 Current Complaints Difficulty walking, bending the knee, standing History of Current Condition The patient fell off a retaining wall in April while gardening. She had an ORIF for right lateral tibial plateau fracture. She has been cleared for WBAT as of . She has previously completed home health physical therapy. She lives in a 2 story home with 4 steps to enter (1 railing) with her who has his own mobility deficits and uses a motorized scooter in the community. She is currently using a FWW both in the home and the community. Prior Treatments and Tests Prior home health Treatment Goals Patient/Caregiver Goals Lift 35# into the car to get 's scooter into the trunk. Return to walking around [facility] (2 miles, hilly, without assistive device). Prior Functional Status Baseline Function- ADL's Independent Baseline Function- Mobility Independent Baseline Function- Gait Community ambulator without assistive device Baseline Function- Recreation/Hobbies Gardening Current Functional Impairments (Reported) Functional Limitations- ADL's Ambulates with FWW, has friends bring over meals, Functional Limitations- Mobility/Gait Can't carry anything up or down stairs, must use rail Personal Factors Other Personal Factors That May Effect History of breast cancer 1 Therapy/Recovery year ago, caregiver for her PT-OP-C Subjective Start: 07/19/18 07:53 Freq: Status: Active Protocol: Document 08/03/18 13:45 AMB (Rec: 08/03/18 13:54 AMB [id number]) OP-PT Subjective Patient Comments Patient Comments The patient is driving (using SPC to get to the back of the car to get the 4WW out). Does have to take a break due to pain swelling during mid day. PT-OP-D Balance Start: 07/19/18 07:53 Freq: Status: Active Protocol: Document 07/19/18 10:15 AMB (Rec: 07/20/18 07:30 AMB [email or web address]) OP-PT Balance Assessment Sitting Balance Static Sitting Balance Ability Normal Standing Balance Static Standing Balance Ability Fair Dynamic Standing Balance Ability Fair Device Used FWW Standing Balance Comments Can stand without FWW with WBOS- but difficulty weightbearing fully on R side. Can single leg stand on L for 10 seconds, 3 seconds on R . No current foot pain on R, but initially it hurt after fall. Myra Fall Scale Copyright Permission Myra BUNN, Myra RM, Sonja SJ. Development of a scale to identify the fall- prone patient. Can J Aging 1989;8;366-7. Vernon Renteria (2009). Preventing patient falls. (2nd ed). [place]: [place]. PT-OP-G Mobility & Gait Start: 07/19/18 07:53 Freq: Status: Active Protocol: Document 07/19/18 10:15 AMB (Rec: 07/20/18 07:30 AMB [email or web address]) OP Gait Assessment Gait Gait Assistance Required: Standby Assistance Able to Maintain Weight Bearing Status Yes During Gait Assistive Devices Assistive Device Straight Cane Front Wheeled Walker Stair Climbing Evaluation Evaluation Level of Assist On Stairs Standby Assistance Devices Stair Climbing Assistive Devices Left Railing Right Railing Technique/Endurance Stair Climbing Direction Ascend and Descend Stair Climbing Technique Step Over Step Step to Step Number of Steps Climbed 6 Comments Stair Climbing Comments poor control on descend with step over step PT-OP-J Posture/Palpation/Skin Start: 07/20/18 12:35 Freq: Status: Active Protocol: Document 07/19/18 10:15 AMB (Rec: 07/20/18 12:39 AMB [email or web address]) Skin Assessment Edema Assessment Left Leg Edema Degree 1+ Comments From knee into foot PT-OP-K Range of Motion Start: 07/19/18 07:53 Freq: Status: Active Protocol: Document 07/19/18 10:15 AMB (Rec: 07/20/18 08:23 AMB [email or web address]) Knee Goniometric Range of Motion Knee Measured in Degrees Left Knee ROM WFL Yes Right Flexion Active (degrees) 109 Flexion Passive (degrees) 111 Extension Active (degrees) 12 Extension Passive (degrees) 5 PT-OP-M Strength Start: 07/19/18 07:53 Freq: Status: Active Protocol: Document 07/19/18 10:15 AMB (Rec: 07/20/18 08:44 AMB [email or web address]) Hip Strength Hip Manual Muscle Testing Right Flexion (L2) 4+ Good+ Extension (S1) 4 Good Abduction 4 Good Left Flexion (L2) 5 Normal Extension (S1) 5 Normal Abduction 5 Normal Knee Strength Knee Manual Muscle Testing Right Flexion (S2) 4+ Good+ Extension (L3) 4+ Good+ Left Flexion (S2) 5 Normal Extension (L3) 5 Normal Ankle/Foot Strength Ankle and Foot Manual Muscle Testing Right Dorsiflexion (L4) 4 Good Plantarflexion (S1) 4 Good Left Dorsiflexion (L4) 5 Normal Plantarflexion (S1) 5 Normal PT-OP-Q Treatments Start: 07/19/18 07:53 Freq: Status: Active Protocol: Document 08/03/18 13:45 AMB (Rec: 08/07/18 06:58 AMB [email or web address]) Cardio Equipment Bicycle (Upright) Duration (Minutes) 6 Resistance 4 Seat Position 3 Gym Equipment Shuttle Recovery Unilateral Squats Resistance 62# Reps/Time 5 min Therapeutic Exercises Standing Exercises 2 Standing Exercise Name lunges with UE support Comments forward 1 Standing Exercise Name step ups Comments 6 step, vc control descent Therapeutic Activity Therapeutic Activity 1 Name floor to waist lift Comments 30# with a 90 degree turn while holding the weight PT-OP-R Modalities Start: 07/19/18 07:53 Freq: Status: Active Protocol: Document 08/03/18 13:45 AMB (Rec: 08/07/18 06:58 AMB [email or web address]) Hot Pack/Cold Pack Treatment Cold Pack Location knee Patient Position Hooklying Treatment Duration (minutes) 10 PT-OP-T Assessment and Plan Start: 07/19/18 07:53 Freq: Status: Active Protocol: Document 08/03/18 13:45 AMB (Rec: 08/07/18 06:58 AMB [email or web address]) Physical Therapy Assessment Assessment Summary Assessment Pt did well with lifting training, will need to progress gait/ balance without assistive device. Physical Therapy Plan Next Visit Focus/Plan Next Note Type Treatment Note Next Visit Plan Progress gait/ balance without UE support
--- NOTE | 2018-08-08 15:12 | PT.OTN ---
Current Diagnoses Displaced bicondylar fracture of right tibia, initial encounter for closed fracture (08/08/18) Physical Therapy Treatment Note PT-OP-A Visit Information Start: 07/19/18 07:53 Freq: Status: Active Protocol: Document 08/08/18 10:30 AMB (Rec: 08/08/18 10:37 AMB [email or web address]) Out-Patient Physical Therapy Visit Information Visit Information Visit Type Treatment Note Visit Start Time 10:30 Visit Stop Time 11:15 Total Visit Minutes 45 Visit Number 7 PT-OP-B Current Condition Start: 07/19/18 07:53 Freq: Status: Active Protocol: Document 07/19/18 10:15 AMB (Rec: 07/20/18 07:30 AMB [email or web address]) Current Condition History of Current Condition Onset Date 04/27/18 Current Complaints Difficulty walking, bending the knee, standing History of Current Condition The patient fell off a retaining wall in April while gardening. She had an ORIF for right lateral tibial plateau fracture. She has been cleared for WBAT as of . She has previously completed home health physical therapy. She lives in a 2 story home with 4 steps to enter (1 railing) with her who has his own mobility deficits and uses a motorized scooter in the community. She is currently using a FWW both in the home and the community. Prior Treatments and Tests Prior home health Treatment Goals Patient/Caregiver Goals Lift 35# into the car to get 's scooter into the trunk. Return to walking around [facility] (2 miles, hilly, without assistive device). Prior Functional Status Baseline Function- ADL's Independent Baseline Function- Mobility Independent Baseline Function- Gait Community ambulator without assistive device Baseline Function- Recreation/Hobbies Gardening Current Functional Impairments (Reported) Functional Limitations- ADL's Ambulates with FWW, has friends bring over meals, Functional Limitations- Mobility/Gait Can't carry anything up or down stairs, must use rail Personal Factors Other Personal Factors That May Effect History of breast cancer 1 Therapy/Recovery year ago, caregiver for her PT-OP-C Subjective Start: 07/19/18 07:53 Freq: Status: Active Protocol: Document 08/08/18 10:30 AMB (Rec: 08/08/18 10:37 AMB [id number]) OP-PT Subjective Patient Comments Patient Comments [facility] PT-OP-D Balance Start: 07/19/18 07:53 Freq: Status: Active Protocol: Document 07/19/18 10:15 AMB (Rec: 07/20/18 07:30 AMB [email or web address]) OP-PT Balance Assessment Sitting Balance Static Sitting Balance Ability Normal Standing Balance Static Standing Balance Ability Fair Dynamic Standing Balance Ability Fair Device Used FWW Standing Balance Comments Can stand without FWW with WBOS- but difficulty weightbearing fully on R side. Can single leg stand on L for 10 seconds, 3 seconds on R . No current foot pain on R, but initially it hurt after fall. Renteria Fall Scale Copyright Permission Myra JM, Myra RM, Sonja SJ. Development of a scale to identify the fall- prone patient. Can J Aging 1989;8;366-7. Vernon Renteria (2009). Preventing patient falls. (2nd ed). [place]: [place]. PT-OP-G Mobility & Gait Start: 07/19/18 07:53 Freq: Status: Active Protocol: Document 07/19/18 10:15 AMB (Rec: 07/20/18 07:30 AMB [email or web address]) OP Gait Assessment Gait Gait Assistance Required: Standby Assistance Able to Maintain Weight Bearing Status Yes During Gait Assistive Devices Assistive Device Straight Cane Front Wheeled Walker Stair Climbing Evaluation Evaluation Level of Assist On Stairs Standby Assistance Devices Stair Climbing Assistive Devices Left Railing Right Railing Technique/Endurance Stair Climbing Direction Ascend and Descend Stair Climbing Technique Step Over Step Step to Step Number of Steps Climbed 6 Comments Stair Climbing Comments poor control on descend with step over step PT-OP-J Posture/Palpation/Skin Start: 07/20/18 12:35 Freq: Status: Active Protocol: Document 07/19/18 10:15 AMB (Rec: 07/20/18 12:39 AMB [email or web address]) Skin Assessment Edema Assessment Left Leg Edema Degree 1+ Comments From knee into foot PT-OP-K Range of Motion Start: 07/19/18 07:53 Freq: Status: Active Protocol: Document 07/19/18 10:15 AMB (Rec: 07/20/18 08:23 AMB [email or web address]) Knee Goniometric Range of Motion Knee Measured in Degrees Left Knee ROM WFL Yes Right Flexion Active (degrees) 109 Flexion Passive (degrees) 111 Extension Active (degrees) 12 Extension Passive (degrees) 5 PT-OP-M Strength Start: 07/19/18 07:53 Freq: Status: Active Protocol: Document 07/19/18 10:15 AMB (Rec: 07/20/18 08:44 AMB [email or web address]) Hip Strength Hip Manual Muscle Testing Right Flexion (L2) 4+ Good+ Extension (S1) 4 Good Abduction 4 Good Left Flexion (L2) 5 Normal Extension (S1) 5 Normal Abduction 5 Normal Knee Strength Knee Manual Muscle Testing Right Flexion (S2) 4+ Good+ Extension (L3) 4+ Good+ Left Flexion (S2) 5 Normal Extension (L3) 5 Normal Ankle/Foot Strength Ankle and Foot Manual Muscle Testing Right Dorsiflexion (L4) 4 Good Plantarflexion (S1) 4 Good Left Dorsiflexion (L4) 5 Normal Plantarflexion (S1) 5 Normal PT-OP-Q Treatments Start: 07/19/18 07:53 Freq: Status: Active Protocol: Document 08/08/18 10:30 AMB (Rec: 08/08/18 12:59 AMB [email or web address]) Cardio Equipment Bicycle (Upright) Duration (Minutes) 8 Resistance 4 Seat Position 2 Therapeutic Exercises Supine Exercises 4 Supine Exercise Name quad stretch Reps/Minutes 30x2 Standing Exercises 2 Standing Exercise Name lunges with UE support Comments forward 1 Standing Exercise Name step ups Comments 6 step, vc control descent Therapeutic Activity Therapeutic Activity 2 Name floor transfer training Comments with environmental support 1 Name floor to waist lift Comments 35# with a 90 degree turn while holding the weight Gait Training Gait Activity 2 Description stairs Device Used 1 railings Level of Assistance SBA Comments alternating steps 1 Description smooth surface Device Used without AD Level of Assistance verbal cues Comments // bars PT-OP-R Modalities Start: 07/19/18 07:53 Freq: Status: Active Protocol: Document 08/08/18 10:30 AMB (Rec: 08/08/18 15:08 AMB [email or web address]) Hot Pack/Cold Pack Treatment Cold Pack Location knee Patient Position Hooklying Treatment Duration (minutes) 10 PT-OP-T Assessment and Plan Start: 07/19/18 07:53 Freq: Status: Active Protocol: Document 08/08/18 10:30 AMB (Rec: 08/08/18 15:08 AMB [email or web address]) Physical Therapy Assessment Assessment Summary Assessment Lifting 35# from the floor was challenging, but she did it with SBA. Ambulation without AD continues to be challenging as pt does limp. Physical Therapy Plan Next Visit Focus/Plan Next Note Type Treatment Note Next Visit Plan Progress gait/ balance without UE support
--- NOTE | 2018-08-11 16:02 | PT.OTN ---
Current Diagnoses Displaced bicondylar fracture of right tibia, initial encounter for closed fracture (08/11/18) Physical Therapy Treatment Note PT-OP-A Visit Information Start: 07/19/18 07:53 Freq: Status: Active Protocol: Document 08/11/18 11:15 AMB (Rec: 08/11/18 11:24 AMB [id number]) Out-Patient Physical Therapy Visit Information Visit Information Visit Type Treatment Note Visit Start Time 11:15 Visit Stop Time 12:00 Total Visit Minutes 45 Visit Number 8 PT-OP-B Current Condition Start: 07/19/18 07:53 Freq: Status: Active Protocol: Document 07/19/18 10:15 AMB (Rec: 07/20/18 07:30 AMB [email or web address]) Current Condition History of Current Condition Onset Date 04/27/18 Current Complaints Difficulty walking, bending the knee, standing History of Current Condition The patient fell off a retaining wall in April while gardening. She had an ORIF for right lateral tibial plateau fracture. She has been cleared for WBAT as of . She has previously completed home health physical therapy. She lives in a 2 story home with 4 steps to enter (1 railing) with her who has his own mobility deficits and uses a motorized scooter in the community. She is currently using a FWW both in the home and the community. Prior Treatments and Tests Prior home health Treatment Goals Patient/Caregiver Goals Lift 35# into the car to get 's scooter into the trunk. Return to walking around [facility] (2 miles, hilly, without assistive device). Prior Functional Status Baseline Function- ADL's Independent Baseline Function- Mobility Independent Baseline Function- Gait Community ambulator without assistive device Baseline Function- Recreation/Hobbies Gardening Current Functional Impairments (Reported) Functional Limitations- ADL's Ambulates with FWW, has friends bring over meals, Functional Limitations- Mobility/Gait Can't carry anything up or down stairs, must use rail Personal Factors Other Personal Factors That May Effect History of breast cancer 1 Therapy/Recovery year ago, caregiver for her PT-OP-C Subjective Start: 07/19/18 07:53 Freq: Status: Active Protocol: Document 08/11/18 11:15 AMB (Rec: 08/11/18 11:24 AMB [id number]) OP-PT Subjective Patient Comments Patient Comments Pt continuing to use 4WW and SPC PT-OP-D Balance Start: 07/19/18 07:53 Freq: Status: Active Protocol: Document 07/19/18 10:15 AMB (Rec: 07/20/18 07:30 AMB [email or web address]) OP-PT Balance Assessment Sitting Balance Static Sitting Balance Ability Normal Standing Balance Static Standing Balance Ability Fair Dynamic Standing Balance Ability Fair Device Used FWW Standing Balance Comments Can stand without FWW with WBOS- but difficulty weightbearing fully on R side. Can single leg stand on L for 10 seconds, 3 seconds on R . No current foot pain on R, but initially it hurt after fall. Renteria Fall Scale Copyright Permission yMra JM, Myra RM, Sonja SJ. Development of a scale to identify the fall- prone patient. Can J Aging 1989;8;366-7. Vernon Renteria (2009). Preventing patient falls. (2nd ed). [place]: [place]. PT-OP-G Mobility & Gait Start: 07/19/18 07:53 Freq: Status: Active Protocol: Document 07/19/18 10:15 AMB (Rec: 07/20/18 07:30 AMB [email or web address]) OP Gait Assessment Gait Gait Assistance Required: Standby Assistance Able to Maintain Weight Bearing Status Yes During Gait Assistive Devices Assistive Device Straight Cane Front Wheeled Walker Stair Climbing Evaluation Evaluation Level of Assist On Stairs Standby Assistance Devices Stair Climbing Assistive Devices Left Railing Right Railing Technique/Endurance Stair Climbing Direction Ascend and Descend Stair Climbing Technique Step Over Step Step to Step Number of Steps Climbed 6 Comments Stair Climbing Comments poor control on descend with step over step PT-OP-J Posture/Palpation/Skin Start: 07/20/18 12:35 Freq: Status: Active Protocol: Document 07/19/18 10:15 AMB (Rec: 07/20/18 12:39 AMB [email or web address]) Skin Assessment Edema Assessment Left Leg Edema Degree 1+ Comments From knee into foot PT-OP-K Range of Motion Start: 07/19/18 07:53 Freq: Status: Active Protocol: Document 07/19/18 10:15 AMB (Rec: 07/20/18 08:23 AMB [email or web address]) Knee Goniometric Range of Motion Knee Measured in Degrees Left Knee ROM WFL Yes Right Flexion Active (degrees) 109 Flexion Passive (degrees) 111 Extension Active (degrees) 12 Extension Passive (degrees) 5 PT-OP-M Strength Start: 07/19/18 07:53 Freq: Status: Active Protocol: Document 07/19/18 10:15 AMB (Rec: 07/20/18 08:44 AMB [email or web address]) Hip Strength Hip Manual Muscle Testing Right Flexion (L2) 4+ Good+ Extension (S1) 4 Good Abduction 4 Good Left Flexion (L2) 5 Normal Extension (S1) 5 Normal Abduction 5 Normal Knee Strength Knee Manual Muscle Testing Right Flexion (S2) 4+ Good+ Extension (L3) 4+ Good+ Left Flexion (S2) 5 Normal Extension (L3) 5 Normal Ankle/Foot Strength Ankle and Foot Manual Muscle Testing Right Dorsiflexion (L4) 4 Good Plantarflexion (S1) 4 Good Left Dorsiflexion (L4) 5 Normal Plantarflexion (S1) 5 Normal PT-OP-Q Treatments Start: 07/19/18 07:53 Freq: Status: Active Protocol: Document 08/11/18 11:15 AMB (Rec: 08/11/18 11:29 AMB [id number]) Cardio Equipment Bicycle (Upright) Duration (Minutes) 8 Resistance 4 Seat Position 2 Gym Equipment Shuttle Recovery Unilateral Squats Resistance 62# Reps/Time 5 min Therapeutic Exercises Supine Exercises 4 Supine Exercise Name quad stretch Reps/Minutes 30x2 Standing Exercises 2 Standing Exercise Name lunges with UE support Reps/Minutes on black foam Comments forward 1 Standing Exercise Name step ups Comments 6 step, vc control descent Gait Training Gait Activity 2 Description stairs Device Used 1 railings Level of Assistance SBA Comments alternating steps 1 Description smooth surface Device Used without AD Level of Assistance verbal cues Comments // bars Manual Therapy Treatment Manual Techniques 1 Type terminal knee extension Comments and OP with knee flexion PT-OP-R Modalities Start: 07/19/18 07:53 Freq: Status: Active Protocol: Document 08/11/18 11:15 AMB (Rec: 08/11/18 15:58 AMB [email or web address]) Hot Pack/Cold Pack Treatment Cold Pack Location knee Patient Position Hooklying Treatment Duration (minutes) 10 PT-OP-T Assessment and Plan Start: 07/19/18 07:53 Freq: Status: Active Protocol: Document 08/11/18 11:15 AMB (Rec: 08/11/18 15:58 AMB [email or web address]) Physical Therapy Assessment Assessment Summary Assessment The patient continues to have antalgic gait when ambulating without AD. Physical Therapy Plan Next Visit Focus/Plan Next Note Type Treatment Note Next Visit Plan Progress gait/ balance without UE support
--- NOTE | 2018-08-15 13:01 | PT.OTN ---
Current Diagnoses Displaced bicondylar fracture of right tibia, initial encounter for closed fracture (08/15/18) Physical Therapy Treatment Note PT-OP-A Visit Information Start: 07/19/18 07:53 Freq: Status: Active Protocol: Document 08/15/18 10:30 AMB (Rec: 08/15/18 10:36 AMB [id number]) Out-Patient Physical Therapy Visit Information Visit Information Visit Type Treatment Note Visit Start Time 10:30 Visit Stop Time 11:15 Total Visit Minutes 55 Visit Number 9 PT-OP-B Current Condition Start: 07/19/18 07:53 Freq: Status: Active Protocol: Document 07/19/18 10:15 AMB (Rec: 07/20/18 07:30 AMB [email or web address]) Current Condition History of Current Condition Onset Date 04/27/18 Current Complaints Difficulty walking, bending the knee, standing History of Current Condition The patient fell off a retaining wall in April while gardening. She had an ORIF for right lateral tibial plateau fracture. She has been cleared for WBAT as of . She has previously completed home health physical therapy. She lives in a 2 story home with 4 steps to enter (1 railing) with her who has his own mobility deficits and uses a motorized scooter in the community. She is currently using a FWW both in the home and the community. Prior Treatments and Tests Prior home health Treatment Goals Patient/Caregiver Goals Lift 35# into the car to get 's scooter into the trunk. Return to walking around [facility] (2 miles, hilly, without assistive device). Prior Functional Status Baseline Function- ADL's Independent Baseline Function- Mobility Independent Baseline Function- Gait Community ambulator without assistive device Baseline Function- Recreation/Hobbies Gardening Current Functional Impairments (Reported) Functional Limitations- ADL's Ambulates with FWW, has friends bring over meals, Functional Limitations- Mobility/Gait Can't carry anything up or down stairs, must use rail Personal Factors Other Personal Factors That May Effect History of breast cancer 1 Therapy/Recovery year ago, caregiver for her PT-OP-C Subjective Start: 07/19/18 07:53 Freq: Status: Active Protocol: Document 08/15/18 10:30 AMB (Rec: 08/15/18 10:36 AMB [id number]) OP-PT Subjective Patient Comments Patient Comments Walked with the 4WW outside yesterday and was fatigued but it went well. PT-OP-D Balance Start: 07/19/18 07:53 Freq: Status: Active Protocol: Document 07/19/18 10:15 AMB (Rec: 07/20/18 07:30 AMB [email or web address]) OP-PT Balance Assessment Sitting Balance Static Sitting Balance Ability Normal Standing Balance Static Standing Balance Ability Fair Dynamic Standing Balance Ability Fair Device Used FWW Standing Balance Comments Can stand without FWW with WBOS- but difficulty weightbearing fully on R side. Can single leg stand on L for 10 seconds, 3 seconds on R . No current foot pain on R, but initially it hurt after fall. Renteria Fall Scale Copyright Permission Myra BUNN, Myra RM, Sonja SJ. Development of a scale to identify the fall- prone patient. Can J Aging 1989;8;366-7. [place] Renteria (2009). Preventing patient falls. (2nd ed). [place]: [place]. PT-OP-G Mobility & Gait Start: 07/19/18 07:53 Freq: Status: Active Protocol: Document 07/19/18 10:15 AMB (Rec: 07/20/18 07:30 AMB [email or web address]) OP Gait Assessment Gait Gait Assistance Required: Standby Assistance Able to Maintain Weight Bearing Status Yes During Gait Assistive Devices Assistive Device Straight Cane Front Wheeled Walker Stair Climbing Evaluation Evaluation Level of Assist On Stairs Standby Assistance Devices Stair Climbing Assistive Devices Left Railing Right Railing Technique/Endurance Stair Climbing Direction Ascend and Descend Stair Climbing Technique Step Over Step Step to Step Number of Steps Climbed 6 Comments Stair Climbing Comments poor control on descend with step over step PT-OP-J Posture/Palpation/Skin Start: 07/20/18 12:35 Freq: Status: Active Protocol: Document 07/19/18 10:15 AMB (Rec: 07/20/18 12:39 AMB [email or web address]) Skin Assessment Edema Assessment Left Leg Edema Degree 1+ Comments From knee into foot PT-OP-K Range of Motion Start: 07/19/18 07:53 Freq: Status: Active Protocol: Document 07/19/18 10:15 AMB (Rec: 07/20/18 08:23 AMB [email or web address]) Knee Goniometric Range of Motion Knee Measured in Degrees Left Knee ROM WFL Yes Right Flexion Active (degrees) 109 Flexion Passive (degrees) 111 Extension Active (degrees) 12 Extension Passive (degrees) 5 PT-OP-M Strength Start: 07/19/18 07:53 Freq: Status: Active Protocol: Document 07/19/18 10:15 AMB (Rec: 07/20/18 08:44 AMB [email or web address]) Hip Strength Hip Manual Muscle Testing Right Flexion (L2) 4+ Good+ Extension (S1) 4 Good Abduction 4 Good Left Flexion (L2) 5 Normal Extension (S1) 5 Normal Abduction 5 Normal Knee Strength Knee Manual Muscle Testing Right Flexion (S2) 4+ Good+ Extension (L3) 4+ Good+ Left Flexion (S2) 5 Normal Extension (L3) 5 Normal Ankle/Foot Strength Ankle and Foot Manual Muscle Testing Right Dorsiflexion (L4) 4 Good Plantarflexion (S1) 4 Good Left Dorsiflexion (L4) 5 Normal Plantarflexion (S1) 5 Normal PT-OP-Q Treatments Start: 07/19/18 07:53 Freq: Status: Active Protocol: Document 08/15/18 10:30 AMB (Rec: 08/15/18 10:39 AMB [id number]) Cardio Equipment Bicycle (Upright) Duration (Minutes) 8 Resistance 6 Seat Position 2 Therapeutic Exercises Supine Exercises 4 Supine Exercise Name quad stretch Reps/Minutes 30x2 2 Supine Exercise Name calf stretch Reps/Minutes 30x2 Comments on MIKE 1 Supine Exercise Name hamstring stretch Reps/Minutes 30x2 Standing Exercises 5 Standing Exercise Name hip abd Resistance #4 tband Reps/Minutes 2x10 3 Standing Exercise Name hip extension Resistance #4 t band Reps/Minutes 2x10 1 Standing Exercise Name step ups Comments 6 step, vc control descent Gait Training Gait Activity 2 Description stairs Device Used 1 railings Level of Assistance SBA Comments alternating steps 1 Description smooth surface Device Used without AD Level of Assistance verbal cues Comments // bars Manual Therapy Treatment Manual Techniques 1 Type terminal knee extension Comments and OP with knee flexion PT-OP-R Modalities Start: 07/19/18 07:53 Freq: Status: Active Protocol: Document 08/15/18 10:30 AMB (Rec: 08/15/18 10:39 AMB [id number]) Hot Pack/Cold Pack Treatment Cold Pack Location knee Patient Position Hooklying Treatment Duration (minutes) 10 PT-OP-T Assessment and Plan Start: 07/19/18 07:53 Freq: Status: Active Protocol: Document 08/15/18 10:30 AMB (Rec: 08/15/18 11:18 AMB [id number]) Physical Therapy Assessment Assessment Summary Assessment The patient is appriately progressing. Will need to work on her confidence of walking without an assistive device. Physical Therapy Plan Next Visit Focus/Plan Next Note Type Treatment Note Next Visit Plan Progress gait/ balance without UE support
--- NOTE | 2018-08-18 15:25 | PT.OTN ---
Current Diagnoses Displaced bicondylar fracture of right tibia, initial encounter for closed fracture (08/18/18) Physical Therapy Treatment Note PT-OP-A Visit Information Start: 07/19/18 07:53 Freq: Status: Active Protocol: Document 08/18/18 11:15 AMB (Rec: 08/18/18 11:23 AMB [id number]) Out-Patient Physical Therapy Visit Information Visit Information Visit Type Treatment Note Visit Start Time 10:30 Visit Stop Time 11:15 Total Visit Minutes 55 Visit Number 10 PT-OP-B Current Condition Start: 07/19/18 07:53 Freq: Status: Active Protocol: Document 07/19/18 10:15 AMB (Rec: 07/20/18 07:30 AMB [email or web address]) Current Condition History of Current Condition Onset Date 04/27/18 Current Complaints Difficulty walking, bending the knee, standing History of Current Condition The patient fell off a retaining wall in April while gardening. She had an ORIF for right lateral tibial plateau fracture. She has been cleared for WBAT as of . She has previously completed home health physical therapy. She lives in a 2 story home with 4 steps to enter (1 railing) with her who has his own mobility deficits and uses a motorized scooter in the community. She is currently using a FWW both in the home and the community. Prior Treatments and Tests Prior home health Treatment Goals Patient/Caregiver Goals Lift 35# into the car to get 's scooter into the trunk. Return to walking around [facility] (2 miles, hilly, without assistive device). Prior Functional Status Baseline Function- ADL's Independent Baseline Function- Mobility Independent Baseline Function- Gait Community ambulator without assistive device Baseline Function- Recreation/Hobbies Gardening Current Functional Impairments (Reported) Functional Limitations- ADL's Ambulates with FWW, has friends bring over meals, Functional Limitations- Mobility/Gait Can't carry anything up or down stairs, must use rail Personal Factors Other Personal Factors That May Effect History of breast cancer 1 Therapy/Recovery year ago, caregiver for her PT-OP-C Subjective Start: 07/19/18 07:53 Freq: Status: Active Protocol: Document 08/18/18 11:15 AMB (Rec: 08/18/18 11:23 AMB [id number]) OP-PT Subjective Patient Comments Patient Comments The patient walked on the [employer] trail yesterday . PT-OP-D Balance Start: 07/19/18 07:53 Freq: Status: Active Protocol: Document 07/19/18 10:15 AMB (Rec: 07/20/18 07:30 AMB [email or web address]) OP-PT Balance Assessment Sitting Balance Static Sitting Balance Ability Normal Standing Balance Static Standing Balance Ability Fair Dynamic Standing Balance Ability Fair Device Used FWW Standing Balance Comments Can stand without FWW with WBOS- but difficulty weightbearing fully on R side. Can single leg stand on L for 10 seconds, 3 seconds on R . No current foot pain on R, but initially it hurt after fall. Renteria Fall Scale Copyright Permission Myra JM, Myra RM, Sonja SJ. Development of a scale to identify the fall- prone patient. Can J Aging 1989;8;366-7. Vernon Renteria (2009). Preventing patient falls. (2nd ed). [place]: [place]. PT-OP-G Mobility & Gait Start: 07/19/18 07:53 Freq: Status: Active Protocol: Document 07/19/18 10:15 AMB (Rec: 07/20/18 07:30 AMB [email or web address]) OP Gait Assessment Gait Gait Assistance Required: Standby Assistance Able to Maintain Weight Bearing Status Yes During Gait Assistive Devices Assistive Device Straight Cane Front Wheeled Walker Stair Climbing Evaluation Evaluation Level of Assist On Stairs Standby Assistance Devices Stair Climbing Assistive Devices Left Railing Right Railing Technique/Endurance Stair Climbing Direction Ascend and Descend Stair Climbing Technique Step Over Step Step to Step Number of Steps Climbed 6 Comments Stair Climbing Comments poor control on descend with step over step PT-OP-J Posture/Palpation/Skin Start: 07/20/18 12:35 Freq: Status: Active Protocol: Document 07/19/18 10:15 AMB (Rec: 07/20/18 12:39 AMB [email or web address]) Skin Assessment Edema Assessment Left Leg Edema Degree 1+ Comments From knee into foot PT-OP-K Range of Motion Start: 07/19/18 07:53 Freq: Status: Active Protocol: Document 07/19/18 10:15 AMB (Rec: 07/20/18 08:23 AMB [email or web address]) Knee Goniometric Range of Motion Knee Measured in Degrees Left Knee ROM WFL Yes Right Flexion Active (degrees) 109 Flexion Passive (degrees) 111 Extension Active (degrees) 12 Extension Passive (degrees) 5 PT-OP-M Strength Start: 07/19/18 07:53 Freq: Status: Active Protocol: Document 07/19/18 10:15 AMB (Rec: 07/20/18 08:44 AMB [email or web address]) Hip Strength Hip Manual Muscle Testing Right Flexion (L2) 4+ Good+ Extension (S1) 4 Good Abduction 4 Good Left Flexion (L2) 5 Normal Extension (S1) 5 Normal Abduction 5 Normal Knee Strength Knee Manual Muscle Testing Right Flexion (S2) 4+ Good+ Extension (L3) 4+ Good+ Left Flexion (S2) 5 Normal Extension (L3) 5 Normal Ankle/Foot Strength Ankle and Foot Manual Muscle Testing Right Dorsiflexion (L4) 4 Good Plantarflexion (S1) 4 Good Left Dorsiflexion (L4) 5 Normal Plantarflexion (S1) 5 Normal PT-OP-Q Treatments Start: 07/19/18 07:53 Freq: Status: Active Protocol: Document 08/18/18 11:15 AMB (Rec: 08/18/18 15:19 AMB [email or web address]) Cardio Equipment Bicycle (Upright) Duration (Minutes) 8 Resistance 6 Seat Position 2 Therapeutic Exercises Supine Exercises 2 Supine Exercise Name calf stretch Reps/Minutes 30x2 Comments on MIKE Standing Exercises 2 Standing Exercise Name lunges without UE support Reps/Minutes on black foam Comments forward 1 Standing Exercise Name step ups Comments 6 step, vc control descent Gait Training Gait Activity 2 Description stairs Device Used without railing Level of Assistance SBA Comments alternating steps 1 Description smooth surface Device Used without AD Level of Assistance verbal cues Comments // bars Neuro Re-Education Treatment Balance Activities 2 Details bosu ball Comments single leg stance with close touch of railings 1 Details single leg stance Comments toe tap cones PT-OP-R Modalities Start: 07/19/18 07:53 Freq: Status: Active Protocol: Document 08/18/18 11:15 AMB (Rec: 08/18/18 15:21 AMB [email or web address]) Hot Pack/Cold Pack Treatment Cold Pack Location knee Patient Position Hooklying Treatment Duration (minutes) 10 PT-OP-T Assessment and Plan Start: 07/19/18 07:53 Freq: Status: Active Protocol: Document 08/18/18 11:23 AMB (Rec: 08/18/18 11:27 AMB [id number]) Physical Therapy Assessment Goals Three Impairment Strength Short Term Goal (STG) The patient will improve her LE strength so that she can safely ascend and descend a flight of stairs without needing a railing. Continues to need rail STG Duration 4 weeks Budget Manager Goal (LTG) The patient will improve her LE strength so that she can perform a full squat to lift 35# from the floor to waist level with good body mechanics . LTG Duration MET Two Impairment Range of motion Short Term Goal (STG) The patient will improve her active knee flexion to 120 degrees. STG Duration 4 weeks One Impairment Gait Short Term Goal (STG) The patient will ambulate with a SPC for 10 minutes with 1/ 10 knee pain or less. STG Duration MET Senior Care Goal (LTG) The patient will ambulate without an assistive device for 30 minutes without an increase in baseline pain. LTG Duration 8 weeks Assessment Summary Assessment Pt continues to note knee pain with twisting and end range flexion, but is otherwise doing well as far as pain. She continues to need to use her 4WW for outdoor ambulation , but is using her SPC or no AD at home. She continues to not have the endurance or balance that she had prior to her fracture. She is working on improving her strength, as she has lost a lot from being non-weightbearing for so long. She is very motivated, and has worked to increase her walking tolerance to 40 minutes at a time. She will benefit from continued PT to improve her end range flexion, quadriceps strength and promote good higher level and dynamic balance. Physical Therapy Plan Next Visit Focus/Plan Next Note Type Treatment Note Next Visit Plan Progress gait/ balance without UE support
--- NOTE | 2018-08-21 12:48 | PT.OTN ---
Current Diagnoses Displaced bicondylar fracture of right tibia, initial encounter for closed fracture (08/21/18) Physical Therapy Treatment Note PT-OP-A Visit Information Start: 07/19/18 07:53 Freq: Status: Active Protocol: Document 08/21/18 10:30 AMB (Rec: 08/21/18 10:37 AMB [id number]) Out-Patient Physical Therapy Visit Information Visit Information Visit Type Treatment Note Visit Start Time 10:30 Visit Stop Time 11:15 Total Visit Minutes 55 Visit Number 11 PT-OP-B Current Condition Start: 07/19/18 07:53 Freq: Status: Active Protocol: Document 07/19/18 10:15 AMB (Rec: 07/20/18 07:30 AMB [email or web address]) Current Condition History of Current Condition Onset Date 04/27/18 Current Complaints Difficulty walking, bending the knee, standing History of Current Condition The patient fell off a retaining wall in April while gardening. She had an ORIF for right lateral tibial plateau fracture. She has been cleared for WBAT as of . She has previously completed home health physical therapy. She lives in a 2 story home with 4 steps to enter (1 railing) with her who has his own mobility deficits and uses a motorized scooter in the community. She is currently using a FWW both in the home and the community. Prior Treatments and Tests Prior home health Treatment Goals Patient/Caregiver Goals Lift 35# into the car to get 's scooter into the trunk. Return to walking around [facility] (2 miles, hilly, without assistive device). Prior Functional Status Baseline Function- ADL's Independent Baseline Function- Mobility Independent Baseline Function- Gait Community ambulator without assistive device Baseline Function- Recreation/Hobbies Gardening Current Functional Impairments (Reported) Functional Limitations- ADL's Ambulates with FWW, has friends bring over meals, Functional Limitations- Mobility/Gait Can't carry anything up or down stairs, must use rail Personal Factors Other Personal Factors That May Effect History of breast cancer 1 Therapy/Recovery year ago, caregiver for her PT-OP-C Subjective Start: 07/19/18 07:53 Freq: Status: Active Protocol: Document 08/21/18 10:30 AMB (Rec: 08/21/18 10:37 AMB [id number]) OP-PT Subjective Patient Comments Patient Comments The pt reports stiffness in the leg the day after exercising a lot. PT-OP-D Balance Start: 07/19/18 07:53 Freq: Status: Active Protocol: Document 07/19/18 10:15 AMB (Rec: 07/20/18 07:30 AMB [email or web address]) OP-PT Balance Assessment Sitting Balance Static Sitting Balance Ability Normal Standing Balance Static Standing Balance Ability Fair Dynamic Standing Balance Ability Fair Device Used FWW Standing Balance Comments Can stand without FWW with WBOS- but difficulty weightbearing fully on R side. Can single leg stand on L for 10 seconds, 3 seconds on R . No current foot pain on R, but initially it hurt after fall. Renteria Fall Scale Copyright Permission Myra JM, Myra RM, Sonja SJ. Development of a scale to identify the fall- prone patient. Can J Aging 1989;8;366-7. Vernon Renteria (2009). Preventing patient falls. (2nd ed). [place]: [place]. PT-OP-G Mobility & Gait Start: 07/19/18 07:53 Freq: Status: Active Protocol: Document 07/19/18 10:15 AMB (Rec: 07/20/18 07:30 AMB [email or web address]) OP Gait Assessment Gait Gait Assistance Required: Standby Assistance Able to Maintain Weight Bearing Status Yes During Gait Assistive Devices Assistive Device Straight Cane Front Wheeled Walker Stair Climbing Evaluation Evaluation Level of Assist On Stairs Standby Assistance Devices Stair Climbing Assistive Devices Left Railing Right Railing Technique/Endurance Stair Climbing Direction Ascend and Descend Stair Climbing Technique Step Over Step Step to Step Number of Steps Climbed 6 Comments Stair Climbing Comments poor control on descend with step over step PT-OP-J Posture/Palpation/Skin Start: 07/20/18 12:35 Freq: Status: Active Protocol: Document 07/19/18 10:15 AMB (Rec: 07/20/18 12:39 AMB [email or web address]) Skin Assessment Edema Assessment Left Leg Edema Degree 1+ Comments From knee into foot PT-OP-K Range of Motion Start: 07/19/18 07:53 Freq: Status: Active Protocol: Document 07/19/18 10:15 AMB (Rec: 07/20/18 08:23 AMB [email or web address]) Knee Goniometric Range of Motion Knee Measured in Degrees Left Knee ROM WFL Yes Right Flexion Active (degrees) 109 Flexion Passive (degrees) 111 Extension Active (degrees) 12 Extension Passive (degrees) 5 PT-OP-M Strength Start: 07/19/18 07:53 Freq: Status: Active Protocol: Document 07/19/18 10:15 AMB (Rec: 07/20/18 08:44 AMB [email or web address]) Hip Strength Hip Manual Muscle Testing Right Flexion (L2) 4+ Good+ Extension (S1) 4 Good Abduction 4 Good Left Flexion (L2) 5 Normal Extension (S1) 5 Normal Abduction 5 Normal Knee Strength Knee Manual Muscle Testing Right Flexion (S2) 4+ Good+ Extension (L3) 4+ Good+ Left Flexion (S2) 5 Normal Extension (L3) 5 Normal Ankle/Foot Strength Ankle and Foot Manual Muscle Testing Right Dorsiflexion (L4) 4 Good Plantarflexion (S1) 4 Good Left Dorsiflexion (L4) 5 Normal Plantarflexion (S1) 5 Normal PT-OP-Q Treatments Start: 07/19/18 07:53 Freq: Status: Active Protocol: Document 08/21/18 10:30 AMB (Rec: 08/21/18 10:38 AMB [id number]) Cardio Equipment Bicycle (Upright) Duration (Minutes) 8 Resistance 10 Seat Position 2 Gym Equipment Shuttle Balance 1 Details RED Comments semi tandem eyes closed, then m/l weightshift Therapeutic Exercises Supine Exercises 2 Supine Exercise Name calf stretch Reps/Minutes 30x2 Comments on MIKE Standing Exercises 2 Standing Exercise Name lunges without UE support Reps/Minutes on black foam Comments forward 1 Standing Exercise Name step ups Comments 8 step, vc control descent Gait Training Gait Activity 1 Description smooth surface Device Used without AD Level of Assistance verbal cues Comments 1 rail Neuro Re-Education Treatment Balance Activities 1 Details single leg stance Comments toe tap cones PT-OP-R Modalities Start: 07/19/18 07:53 Freq: Status: Active Protocol: Document 08/21/18 10:30 AMB (Rec: 08/21/18 11:16 AMB [email or web address]) Hot Pack/Cold Pack Treatment Cold Pack Location knee Patient Position Hooklying Treatment Duration (minutes) 10 PT-OP-T Assessment and Plan Start: 07/19/18 07:53 Freq: Status: Active Protocol: Document 08/21/18 10:30 AMB (Rec: 08/21/18 12:48 AMB [email or web address]) Physical Therapy Assessment Assessment Summary Assessment The patient continues to progress with gait stability, higher level balance remains challenging ,and she continues to need to use her 4WW out in the community. Physical Therapy Plan Next Visit Focus/Plan Next Note Type Treatment Note Next Visit Plan Progress gait/ balance without UE support
--- NOTE | 2018-08-23 15:23 | PT.OTN ---
Current Diagnoses Displaced bicondylar fracture of right tibia, initial encounter for closed fracture (08/23/18) Physical Therapy Treatment Note PT-OP-A Visit Information Start: 07/19/18 07:53 Freq: Status: Active Protocol: Document 08/23/18 10:32 AMB (Rec: 08/23/18 10:34 AMB [id number]) Out-Patient Physical Therapy Visit Information Visit Information Visit Type Treatment Note Visit Note G code 12/10 Visit Start Time 10:30 Visit Stop Time 11:15 Total Visit Minutes 55 Visit Number 12 PT-OP-B Current Condition Start: 07/19/18 07:53 Freq: Status: Active Protocol: Document 07/19/18 10:15 AMB (Rec: 07/20/18 07:30 AMB [email or web address]) Current Condition History of Current Condition Onset Date 04/27/18 Current Complaints Difficulty walking, bending the knee, standing History of Current Condition The patient fell off a retaining wall in April while gardening. She had an ORIF for right lateral tibial plateau fracture. She has been cleared for WBAT as of . She has previously completed home health physical therapy. She lives in a 2 story home with 4 steps to enter (1 railing) with her who has his own mobility deficits and uses a motorized scooter in the community. She is currently using a FWW both in the home and the community. Prior Treatments and Tests Prior home health Treatment Goals Patient/Caregiver Goals Lift 35# into the car to get 's scooter into the trunk. Return to walking around [facility] (2 miles, hilly, without assistive device). Prior Functional Status Baseline Function- ADL's Independent Baseline Function- Mobility Independent Baseline Function- Gait Community ambulator without assistive device Baseline Function- Recreation/Hobbies Gardening Current Functional Impairments (Reported) Functional Limitations- ADL's Ambulates with FWW, has friends bring over meals, Functional Limitations- Mobility/Gait Can't carry anything up or down stairs, must use rail Personal Factors Other Personal Factors That May Effect History of breast cancer 1 Therapy/Recovery year ago, caregiver for her PT-OP-C Subjective Start: 07/19/18 07:53 Freq: Status: Active Protocol: Document 08/23/18 10:32 AMB (Rec: 08/23/18 10:34 AMB [id number]) OP-PT Subjective Patient Comments Patient Comments Pt is doing well, continues to try to walk around the house without AD. PT-OP-D Balance Start: 07/19/18 07:53 Freq: Status: Active Protocol: Document 07/19/18 10:15 AMB (Rec: 07/20/18 07:30 AMB [email or web address]) OP-PT Balance Assessment Sitting Balance Static Sitting Balance Ability Normal Standing Balance Static Standing Balance Ability Fair Dynamic Standing Balance Ability Fair Device Used FWW Standing Balance Comments Can stand without FWW with WBOS- but difficulty weightbearing fully on R side. Can single leg stand on L for 10 seconds, 3 seconds on R . No current foot pain on R, but initially it hurt after fall. Renteria Fall Scale Copyright Permission Myra JM, Myra RM, Sonja SJ. Development of a scale to identify the fall- prone patient. Can J Aging 1989;8;366-7. [place] Renteria (2009). Preventing patient falls. (2nd ed). [place]: [place]. PT-OP-G Mobility & Gait Start: 07/19/18 07:53 Freq: Status: Active Protocol: Document 07/19/18 10:15 AMB (Rec: 07/20/18 07:30 AMB [email or web address]) OP Gait Assessment Gait Gait Assistance Required: Standby Assistance Able to Maintain Weight Bearing Status Yes During Gait Assistive Devices Assistive Device Straight Cane Front Wheeled Walker Stair Climbing Evaluation Evaluation Level of Assist On Stairs Standby Assistance Devices Stair Climbing Assistive Devices Left Railing Right Railing Technique/Endurance Stair Climbing Direction Ascend and Descend Stair Climbing Technique Step Over Step Step to Step Number of Steps Climbed 6 Comments Stair Climbing Comments poor control on descend with step over step PT-OP-J Posture/Palpation/Skin Start: 07/20/18 12:35 Freq: Status: Active Protocol: Document 07/19/18 10:15 AMB (Rec: 07/20/18 12:39 AMB [email or web address]) Skin Assessment Edema Assessment Left Leg Edema Degree 1+ Comments From knee into foot PT-OP-K Range of Motion Start: 07/19/18 07:53 Freq: Status: Active Protocol: Document 07/19/18 10:15 AMB (Rec: 07/20/18 08:23 AMB [email or web address]) Knee Goniometric Range of Motion Knee Measured in Degrees Left Knee ROM WFL Yes Right Flexion Active (degrees) 109 Flexion Passive (degrees) 111 Extension Active (degrees) 12 Extension Passive (degrees) 5 PT-OP-M Strength Start: 07/19/18 07:53 Freq: Status: Active Protocol: Document 07/19/18 10:15 AMB (Rec: 07/20/18 08:44 AMB [email or web address]) Hip Strength Hip Manual Muscle Testing Right Flexion (L2) 4+ Good+ Extension (S1) 4 Good Abduction 4 Good Left Flexion (L2) 5 Normal Extension (S1) 5 Normal Abduction 5 Normal Knee Strength Knee Manual Muscle Testing Right Flexion (S2) 4+ Good+ Extension (L3) 4+ Good+ Left Flexion (S2) 5 Normal Extension (L3) 5 Normal Ankle/Foot Strength Ankle and Foot Manual Muscle Testing Right Dorsiflexion (L4) 4 Good Plantarflexion (S1) 4 Good Left Dorsiflexion (L4) 5 Normal Plantarflexion (S1) 5 Normal PT-OP-Q Treatments Start: 07/19/18 07:53 Freq: Status: Active Protocol: Document 08/23/18 10:30 AMB (Rec: 08/23/18 10:39 AMB [id number]) Cardio Equipment Bicycle (Upright) Duration (Minutes) 8 Resistance 10 Seat Position 2 Therapeutic Exercises Supine Exercises 4 Supine Exercise Name quad stretch Reps/Minutes 30x2 2 Supine Exercise Name calf stretch Reps/Minutes 30x2 Comments on MIKE Standing Exercises 4 Standing Exercise Name heel raises Reps/Minutes 2x10 2 Standing Exercise Name lunges without UE support Reps/Minutes on black foam Comments forward 1 Standing Exercise Name step ups Comments 8 step, vc control descent Gait Training Gait Activity 1 Description smooth surface Device Used without AD Level of Assistance verbal cues Comments 1 rail Neuro Re-Education Treatment Balance Activities 1 Details single leg stance Comments toe tap cones PT-OP-R Modalities Start: 07/19/18 07:53 Freq: Status: Active Protocol: Document 08/23/18 10:30 AMB (Rec: 08/23/18 10:39 AMB [id number]) Hot Pack/Cold Pack Treatment Cold Pack Location knee Patient Position Hooklying Treatment Duration (minutes) 10 PT-OP-T Assessment and Plan Start: 07/19/18 07:53 Freq: Status: Active Protocol: Document 08/23/18 10:30 AMB (Rec: 08/23/18 15:23 AMB [email or web address]) Physical Therapy Assessment Assessment Summary Assessment End range flexion continues to be limited, continued calf atrophy limits single leg heel raise Physical Therapy Plan Next Visit Focus/Plan Next Note Type Treatment Note Next Visit Plan Progress gait/ balance without UE support
--- NOTE | 2018-08-31 10:40 | PT.OTN ---
Current Diagnoses Displaced bicondylar fracture of right tibia, initial encounter for closed fracture (08/31/18) Physical Therapy Treatment Note PT-OP-A Visit Information Start: 07/19/18 07:53 Freq: Status: Active Protocol: Document 08/31/18 09:00 AMB (Rec: 08/31/18 09:08 AMB [id number]) Out-Patient Physical Therapy Visit Information Visit Information Visit Type Treatment Note Visit Note G code 01/10 Visit Start Time 09:00 Visit Stop Time 09:55 Total Visit Minutes 55 Visit Number 13 PT-OP-B Current Condition Start: 07/19/18 07:53 Freq: Status: Active Protocol: Document 07/19/18 10:15 AMB (Rec: 07/20/18 07:30 AMB [email or web address]) Current Condition History of Current Condition Onset Date 04/27/18 Current Complaints Difficulty walking, bending the knee, standing History of Current Condition The patient fell off a retaining wall in April while gardening. She had an ORIF for right lateral tibial plateau fracture. She has been cleared for WBAT as of . She has previously completed home health physical therapy. She lives in a 2 story home with 4 steps to enter (1 railing) with her who has his own mobility deficits and uses a motorized scooter in the community. She is currently using a FWW both in the home and the community. Prior Treatments and Tests Prior home health Treatment Goals Patient/Caregiver Goals Lift 35# into the car to get 's scooter into the trunk. Return to walking around [facility] (2 miles, hilly, without assistive device). Prior Functional Status Baseline Function- ADL's Independent Baseline Function- Mobility Independent Baseline Function- Gait Community ambulator without assistive device Baseline Function- Recreation/Hobbies Gardening Current Functional Impairments (Reported) Functional Limitations- ADL's Ambulates with FWW, has friends bring over meals, Functional Limitations- Mobility/Gait Can't carry anything up or down stairs, must use rail Personal Factors Other Personal Factors That May Effect History of breast cancer 1 Therapy/Recovery year ago, caregiver for her PT-OP-C Subjective Start: 07/19/18 07:53 Freq: Status: Active Protocol: Document 08/31/18 09:00 AMB (Rec: 08/31/18 09:08 AMB [id number]) OP-PT Subjective Patient Comments Patient Comments Pt was able to get the turkey out of the oven without a problem. PT-OP-D Balance Start: 07/19/18 07:53 Freq: Status: Active Protocol: Document 07/19/18 10:15 AMB (Rec: 07/20/18 07:30 AMB [email or web address]) OP-PT Balance Assessment Sitting Balance Static Sitting Balance Ability Normal Standing Balance Static Standing Balance Ability Fair Dynamic Standing Balance Ability Fair Device Used FWW Standing Balance Comments Can stand without FWW with WBOS- but difficulty weightbearing fully on R side. Can single leg stand on L for 10 seconds, 3 seconds on R . No current foot pain on R, but initially it hurt after fall. Renteria Fall Scale Copyright Permission Myra JM, Myra RM, Sonja SJ. Development of a scale to identify the fall- prone patient. Can J Aging 1989;8;366-7. Vernon Renteria (2009). Preventing patient falls. (2nd ed). [place]: [place]. PT-OP-G Mobility & Gait Start: 07/19/18 07:53 Freq: Status: Active Protocol: Document 07/19/18 10:15 AMB (Rec: 07/20/18 07:30 AMB [email or web address]) OP Gait Assessment Gait Gait Assistance Required: Standby Assistance Able to Maintain Weight Bearing Status Yes During Gait Assistive Devices Assistive Device Straight Cane Front Wheeled Walker Stair Climbing Evaluation Evaluation Level of Assist On Stairs Standby Assistance Devices Stair Climbing Assistive Devices Left Railing Right Railing Technique/Endurance Stair Climbing Direction Ascend and Descend Stair Climbing Technique Step Over Step Step to Step Number of Steps Climbed 6 Comments Stair Climbing Comments poor control on descend with step over step PT-OP-J Posture/Palpation/Skin Start: 07/20/18 12:35 Freq: Status: Active Protocol: Document 07/19/18 10:15 AMB (Rec: 07/20/18 12:39 AMB [email or web address]) Skin Assessment Edema Assessment Left Leg Edema Degree 1+ Comments From knee into foot PT-OP-K Range of Motion Start: 07/19/18 07:53 Freq: Status: Active Protocol: Document 07/19/18 10:15 AMB (Rec: 07/20/18 08:23 AMB [email or web address]) Knee Goniometric Range of Motion Knee Measured in Degrees Left Knee ROM WFL Yes Right Flexion Active (degrees) 109 Flexion Passive (degrees) 111 Extension Active (degrees) 12 Extension Passive (degrees) 5 PT-OP-M Strength Start: 07/19/18 07:53 Freq: Status: Active Protocol: Document 07/19/18 10:15 AMB (Rec: 07/20/18 08:44 AMB [email or web address]) Hip Strength Hip Manual Muscle Testing Right Flexion (L2) 4+ Good+ Extension (S1) 4 Good Abduction 4 Good Left Flexion (L2) 5 Normal Extension (S1) 5 Normal Abduction 5 Normal Knee Strength Knee Manual Muscle Testing Right Flexion (S2) 4+ Good+ Extension (L3) 4+ Good+ Left Flexion (S2) 5 Normal Extension (L3) 5 Normal Ankle/Foot Strength Ankle and Foot Manual Muscle Testing Right Dorsiflexion (L4) 4 Good Plantarflexion (S1) 4 Good Left Dorsiflexion (L4) 5 Normal Plantarflexion (S1) 5 Normal PT-OP-Q Treatments Start: 07/19/18 07:53 Freq: Status: Active Protocol: Document 08/31/18 09:00 AMB (Rec: 08/31/18 09:47 AMB [id number]) Cardio Equipment Bicycle (Upright) Duration (Minutes) 8 Resistance 10 Seat Position 2 Gym Equipment Shuttle Balance 1 Details RED Comments semi tandem eyes closed, then m/l weightshift Therapeutic Exercises Supine Exercises 2 Supine Exercise Name calf stretch Reps/Minutes 30x2 Comments on MIKE Standing Exercises 4 Standing Exercise Name heel raises Reps/Minutes 2x10 2 Standing Exercise Name lunges without UE support Reps/Minutes fwd, side, diagonal Comments 3x5 1 Standing Exercise Name step ups Comments 8 step, vc control descent Therapeutic Activity Therapeutic Activity 2 Name floor transfer Comments independent with and without environmental support, does need UE support to stand from short stool PT-OP-R Modalities Start: 07/19/18 07:53 Freq: Status: Active Protocol: Document 08/31/18 09:00 AMB (Rec: 08/31/18 10:30 AMB [id number]) Hot Pack/Cold Pack Treatment Cold Pack Location knee Patient Position Hooklying Treatment Duration (minutes) 10 PT-OP-T Assessment and Plan Start: 07/19/18 07:53 Freq: Status: Active Protocol: Document 08/31/18 09:00 AMB (Rec: 08/31/18 10:30 AMB [id number]) Physical Therapy Assessment Assessment Summary Assessment Pt did well with floor transfers, encouraged not to over do it with weeding. Physical Therapy Plan Next Visit Focus/Plan Next Note Type Treatment Note Next Visit Plan Progress gait/ balance without UE support
--- NOTE | 2018-09-06 11:31 | PT.OTN ---
Current Diagnoses Displaced bicondylar fracture of right tibia, initial encounter for closed fracture (09/06/18) Physical Therapy Treatment Note PT-OP-A Visit Information Start: 07/19/18 07:53 Freq: Status: Active Protocol: Document 09/06/18 10:30 AMB (Rec: 09/06/18 10:39 AMB [id number]) Out-Patient Physical Therapy Visit Information Visit Information Visit Type Treatment Note Visit Note G code 01/10 Visit Start Time 10:30 Visit Stop Time 11:25 Total Visit Minutes 55 Visit Number 14 PT-OP-B Current Condition Start: 07/19/18 07:53 Freq: Status: Active Protocol: Document 07/19/18 10:15 AMB (Rec: 07/20/18 07:30 AMB [email or web address]) Current Condition History of Current Condition Onset Date 04/27/18 Current Complaints Difficulty walking, bending the knee, standing History of Current Condition The patient fell off a retaining wall in April while gardening. She had an ORIF for right lateral tibial plateau fracture. She has been cleared for WBAT as of . She has previously completed home health physical therapy. She lives in a 2 story home with 4 steps to enter (1 railing) with her who has his own mobility deficits and uses a motorized scooter in the community. She is currently using a FWW both in the home and the community. Prior Treatments and Tests Prior home health Treatment Goals Patient/Caregiver Goals Lift 35# into the car to get 's scooter into the trunk. Return to walking around [facility] (2 miles, hilly, without assistive device). Prior Functional Status Baseline Function- ADL's Independent Baseline Function- Mobility Independent Baseline Function- Gait Community ambulator without assistive device Baseline Function- Recreation/Hobbies Gardening Current Functional Impairments (Reported) Functional Limitations- ADL's Ambulates with FWW, has friends bring over meals, Functional Limitations- Mobility/Gait Can't carry anything up or down stairs, must use rail Personal Factors Other Personal Factors That May Effect History of breast cancer 1 Therapy/Recovery year ago, caregiver for her PT-OP-C Subjective Start: 07/19/18 07:53 Freq: Status: Active Protocol: Document 09/06/18 10:30 AMB (Rec: 09/06/18 10:39 AMB [id number]) OP-PT Subjective Patient Comments Patient Comments Pt walked for 2 miles with her walker, attends with SPC rather than 4WW. PT-OP-D Balance Start: 07/19/18 07:53 Freq: Status: Active Protocol: Document 07/19/18 10:15 AMB (Rec: 07/20/18 07:30 AMB [email or web address]) OP-PT Balance Assessment Sitting Balance Static Sitting Balance Ability Normal Standing Balance Static Standing Balance Ability Fair Dynamic Standing Balance Ability Fair Device Used FWW Standing Balance Comments Can stand without FWW with WBOS- but difficulty weightbearing fully on R side. Can single leg stand on L for 10 seconds, 3 seconds on R . No current foot pain on R, but initially it hurt after fall. Myra Fall Scale Copyright Permission Myra BUNN, Myra RM, Sonja SJ. Development of a scale to identify the fall- prone patient. Can J Aging 1989;8;366-7. Vernon Renteria (2009). Preventing patient falls. (2nd ed). [place]: [place]. PT-OP-G Mobility & Gait Start: 07/19/18 07:53 Freq: Status: Active Protocol: Document 07/19/18 10:15 AMB (Rec: 07/20/18 07:30 AMB [email or web address]) OP Gait Assessment Gait Gait Assistance Required: Standby Assistance Able to Maintain Weight Bearing Status Yes During Gait Assistive Devices Assistive Device Straight Cane Front Wheeled Walker Stair Climbing Evaluation Evaluation Level of Assist On Stairs Standby Assistance Devices Stair Climbing Assistive Devices Left Railing Right Railing Technique/Endurance Stair Climbing Direction Ascend and Descend Stair Climbing Technique Step Over Step Step to Step Number of Steps Climbed 6 Comments Stair Climbing Comments poor control on descend with step over step PT-OP-J Posture/Palpation/Skin Start: 07/20/18 12:35 Freq: Status: Active Protocol: Document 07/19/18 10:15 AMB (Rec: 07/20/18 12:39 AMB [email or web address]) Skin Assessment Edema Assessment Left Leg Edema Degree 1+ Comments From knee into foot PT-OP-K Range of Motion Start: 07/19/18 07:53 Freq: Status: Active Protocol: Document 07/19/18 10:15 AMB (Rec: 07/20/18 08:23 AMB [email or web address]) Knee Goniometric Range of Motion Knee Measured in Degrees Left Knee ROM WFL Yes Right Flexion Active (degrees) 109 Flexion Passive (degrees) 111 Extension Active (degrees) 12 Extension Passive (degrees) 5 PT-OP-M Strength Start: 07/19/18 07:53 Freq: Status: Active Protocol: Document 07/19/18 10:15 AMB (Rec: 07/20/18 08:44 AMB [email or web address]) Hip Strength Hip Manual Muscle Testing Right Flexion (L2) 4+ Good+ Extension (S1) 4 Good Abduction 4 Good Left Flexion (L2) 5 Normal Extension (S1) 5 Normal Abduction 5 Normal Knee Strength Knee Manual Muscle Testing Right Flexion (S2) 4+ Good+ Extension (L3) 4+ Good+ Left Flexion (S2) 5 Normal Extension (L3) 5 Normal Ankle/Foot Strength Ankle and Foot Manual Muscle Testing Right Dorsiflexion (L4) 4 Good Plantarflexion (S1) 4 Good Left Dorsiflexion (L4) 5 Normal Plantarflexion (S1) 5 Normal PT-OP-Q Treatments Start: 07/19/18 07:53 Freq: Status: Active Protocol: Document 09/06/18 10:30 AMB (Rec: 09/06/18 11:30 AMB [email or web address]) Cardio Equipment Bicycle (Upright) Duration (Minutes) 9 Resistance 10 Seat Position 2 Therapeutic Exercises Standing Exercises 5 Standing Exercise Name calf stretch on MIKE Reps/Minutes 30x2 4 Standing Exercise Name heel raises Reps/Minutes 2x10 3 Standing Exercise Name slow forward marches Comments to improve SLS time 2 Standing Exercise Name lunges without UE support Reps/Minutes fwd, side, diagonal Comments 3x5 1 Standing Exercise Name step ups Comments 8 step, vc control descent Manual Therapy Treatment Soft Tissue Mobilization 1 Body Location scar and posterior knee Mobilization Type Myofascial Release Strumming Body Position Supine Manual Techniques 1 Type PROM with OP Comments flexion and extension PT-OP-R Modalities Start: 07/19/18 07:53 Freq: Status: Active Protocol: Document 09/06/18 10:30 AMB (Rec: 09/06/18 11:30 AMB [email or web address]) Hot Pack/Cold Pack Treatment Cold Pack Location knee Patient Position Hooklying Treatment Duration (minutes) 10 PT-OP-T Assessment and Plan Start: 07/19/18 07:53 Freq: Status: Active Protocol: Document 09/06/18 10:30 AMB (Rec: 09/06/18 11:30 AMB [email or web address]) Physical Therapy Assessment Assessment Summary Assessment ROM improving well. 128 degrees of felxion, missing 2 degrees of extension. Tenderness at back of knee with some continued swelling. Physical Therapy Plan Next Visit Focus/Plan Next Note Type Treatment Note Next Visit Plan Progress gait/ balance without UE support
--- NOTE | 2018-09-08 16:11 | PT.OTN ---
Current Diagnoses Displaced bicondylar fracture of right tibia, initial encounter for closed fracture (09/08/18) Physical Therapy Treatment Note PT-OP-A Visit Information Start: 07/19/18 07:53 Freq: Status: Active Protocol: Document 09/08/18 11:15 AMB (Rec: 09/08/18 11:25 AMB [email or web address]) Out-Patient Physical Therapy Visit Information Visit Information Visit Type Treatment Note Visit Note G code 03/12 Visit Start Time 11:15 Visit Stop Time 12:00 Total Visit Minutes 55 Visit Number 15 PT-OP-B Current Condition Start: 07/19/18 07:53 Freq: Status: Active Protocol: Document 07/19/18 10:15 AMB (Rec: 07/20/18 07:30 AMB [email or web address]) Current Condition History of Current Condition Onset Date 04/27/18 Current Complaints Difficulty walking, bending the knee, standing History of Current Condition The patient fell off a retaining wall in April while gardening. She had an ORIF for right lateral tibial plateau fracture. She has been cleared for WBAT as of . She has previously completed home health physical therapy. She lives in a 2 story home with 4 steps to enter (1 railing) with her who has his own mobility deficits and uses a motorized scooter in the community. She is currently using a FWW both in the home and the community. Prior Treatments and Tests Prior home health Treatment Goals Patient/Caregiver Goals Lift 35# into the car to get 's scooter into the trunk. Return to walking around [facility] (2 miles, hilly, without assistive device). Prior Functional Status Baseline Function- ADL's Independent Baseline Function- Mobility Independent Baseline Function- Gait Community ambulator without assistive device Baseline Function- Recreation/Hobbies Gardening Current Functional Impairments (Reported) Functional Limitations- ADL's Ambulates with FWW, has friends bring over meals, Functional Limitations- Mobility/Gait Can't carry anything up or down stairs, must use rail Personal Factors Other Personal Factors That May Effect History of breast cancer 1 Therapy/Recovery year ago, caregiver for her PT-OP-C Subjective Start: 07/19/18 07:53 Freq: Status: Active Protocol: Document 09/08/18 11:15 AMB (Rec: 09/08/18 11:25 AMB [id number]) OP-PT Subjective Patient Comments Patient Comments Pt's goal is to walk without AD with increased speed. PT-OP-D Balance Start: 07/19/18 07:53 Freq: Status: Active Protocol: Document 07/19/18 10:15 AMB (Rec: 07/20/18 07:30 AMB [email or web address]) OP-PT Balance Assessment Sitting Balance Static Sitting Balance Ability Normal Standing Balance Static Standing Balance Ability Fair Dynamic Standing Balance Ability Fair Device Used FWW Standing Balance Comments Can stand without FWW with WBOS- but difficulty weightbearing fully on R side. Can single leg stand on L for 10 seconds, 3 seconds on R . No current foot pain on R, but initially it hurt after fall. Renteria Fall Scale Copyright Permission Myra JM, Myra RM, Sonja SJ. Development of a scale to identify the fall- prone patient. Can J Aging 1989;8;366-7. Vernon Renteria (2009). Preventing patient falls. (2nd ed). [place]: [place]. PT-OP-G Mobility & Gait Start: 07/19/18 07:53 Freq: Status: Active Protocol: Document 07/19/18 10:15 AMB (Rec: 07/20/18 07:30 AMB [email or web address]) OP Gait Assessment Gait Gait Assistance Required: Standby Assistance Able to Maintain Weight Bearing Status Yes During Gait Assistive Devices Assistive Device Straight Cane Front Wheeled Walker Stair Climbing Evaluation Evaluation Level of Assist On Stairs Standby Assistance Devices Stair Climbing Assistive Devices Left Railing Right Railing Technique/Endurance Stair Climbing Direction Ascend and Descend Stair Climbing Technique Step Over Step Step to Step Number of Steps Climbed 6 Comments Stair Climbing Comments poor control on descend with step over step PT-OP-J Posture/Palpation/Skin Start: 07/20/18 12:35 Freq: Status: Active Protocol: Document 07/19/18 10:15 AMB (Rec: 07/20/18 12:39 AMB [email or web address]) Skin Assessment Edema Assessment Left Leg Edema Degree 1+ Comments From knee into foot PT-OP-K Range of Motion Start: 07/19/18 07:53 Freq: Status: Active Protocol: Document 07/19/18 10:15 AMB (Rec: 07/20/18 08:23 AMB [email or web address]) Knee Goniometric Range of Motion Knee Measured in Degrees Left Knee ROM WFL Yes Right Flexion Active (degrees) 109 Flexion Passive (degrees) 111 Extension Active (degrees) 12 Extension Passive (degrees) 5 PT-OP-M Strength Start: 07/19/18 07:53 Freq: Status: Active Protocol: Document 07/19/18 10:15 AMB (Rec: 07/20/18 08:44 AMB [email or web address]) Hip Strength Hip Manual Muscle Testing Right Flexion (L2) 4+ Good+ Extension (S1) 4 Good Abduction 4 Good Left Flexion (L2) 5 Normal Extension (S1) 5 Normal Abduction 5 Normal Knee Strength Knee Manual Muscle Testing Right Flexion (S2) 4+ Good+ Extension (L3) 4+ Good+ Left Flexion (S2) 5 Normal Extension (L3) 5 Normal Ankle/Foot Strength Ankle and Foot Manual Muscle Testing Right Dorsiflexion (L4) 4 Good Plantarflexion (S1) 4 Good Left Dorsiflexion (L4) 5 Normal Plantarflexion (S1) 5 Normal PT-OP-Q Treatments Start: 07/19/18 07:53 Freq: Status: Active Protocol: Document 09/08/18 11:15 AMB (Rec: 09/08/18 16:10 AMB [email or web address]) Cardio Equipment Recumbent Bicycle Duration (Minutes) 8 Resistance 10 Seat Position 2 Gym Equipment Shuttle Balance 1 Details RED Comments semi tandem eyes closed, then m/l weightshift Therapeutic Exercises Supine Exercises 4 Supine Exercise Name quad stretch Reps/Minutes 30x2 2 Supine Exercise Name calf stretch Reps/Minutes 30x2 Comments on MIKE Standing Exercises 4 Standing Exercise Name heel raises Reps/Minutes 2x10 3 Standing Exercise Name slow forward marches Comments to improve SLS time PT-OP-R Modalities Start: 07/19/18 07:53 Freq: Status: Active Protocol: Document 09/08/18 11:15 AMB (Rec: 09/08/18 16:11 AMB [email or web address]) Hot Pack/Cold Pack Treatment Cold Pack Location knee Patient Position Hooklying Treatment Duration (minutes) 10 PT-OP-T Assessment and Plan Start: 07/19/18 07:53 Freq: Status: Active Protocol: Document 09/08/18 11:15 AMB (Rec: 09/08/18 16:10 AMB [email or web address]) Physical Therapy Assessment Assessment Summary Assessment Pt gait improving, needs walker to walk longer distances, but otherwise doing well with SPC, can walk without AD in home only at this time. Physical Therapy Plan Next Visit Focus/Plan Next Note Type Treatment Note Next Visit Plan Progress gait/ balance without UE support
--- NOTE | 2018-09-13 08:39 | PT.OTN ---
Current Diagnoses Displaced bicondylar fracture of right tibia, initial encounter for closed fracture (09/12/18) Physical Therapy Treatment Note PT-OP-A Visit Information Start: 07/19/18 07:53 Freq: Status: Active Protocol: Document 09/12/18 09:45 AMB (Rec: 09/12/18 09:53 AMB [id number]) Out-Patient Physical Therapy Visit Information Visit Information Visit Type Treatment Note Visit Note G code 04/11 Visit Start Time 09:45 Visit Stop Time 10:30 Total Visit Minutes 55 Visit Number 16 PT-OP-B Current Condition Start: 07/19/18 07:53 Freq: Status: Active Protocol: Document 07/19/18 10:15 AMB (Rec: 07/20/18 07:30 AMB [email or web address]) Current Condition History of Current Condition Onset Date 04/27/18 Current Complaints Difficulty walking, bending the knee, standing History of Current Condition The patient fell off a retaining wall in April while gardening. She had an ORIF for right lateral tibial plateau fracture. She has been cleared for WBAT as of . She has previously completed home health physical therapy. She lives in a 2 story home with 4 steps to enter (1 railing) with her who has his own mobility deficits and uses a motorized scooter in the community. She is currently using a FWW both in the home and the community. Prior Treatments and Tests Prior home health Treatment Goals Patient/Caregiver Goals Lift 35# into the car to get 's scooter into the trunk. Return to walking around [facility] (2 miles, hilly, without assistive device). Prior Functional Status Baseline Function- ADL's Independent Baseline Function- Mobility Independent Baseline Function- Gait Community ambulator without assistive device Baseline Function- Recreation/Hobbies Gardening Current Functional Impairments (Reported) Functional Limitations- ADL's Ambulates with FWW, has friends bring over meals, Functional Limitations- Mobility/Gait Can't carry anything up or down stairs, must use rail Personal Factors Other Personal Factors That May Effect History of breast cancer 1 Therapy/Recovery year ago, caregiver for her PT-OP-C Subjective Start: 07/19/18 07:53 Freq: Status: Active Protocol: Document 09/12/18 09:45 AMB (Rec: 09/12/18 09:53 AMB [id number]) OP-PT Subjective Patient Comments Patient Comments Pt's knee was hurting yesterday, went to the grocery store and got her 's scooter in the car. PT-OP-D Balance Start: 07/19/18 07:53 Freq: Status: Active Protocol: Document 07/19/18 10:15 AMB (Rec: 07/20/18 07:30 AMB [email or web address]) OP-PT Balance Assessment Sitting Balance Static Sitting Balance Ability Normal Standing Balance Static Standing Balance Ability Fair Dynamic Standing Balance Ability Fair Device Used FWW Standing Balance Comments Can stand without FWW with WBOS- but difficulty weightbearing fully on R side. Can single leg stand on L for 10 seconds, 3 seconds on R . No current foot pain on R, but initially it hurt after fall. Myra Fall Scale Copyright Permission Myra BUNN, Myra RM, Sonja SJ. Development of a scale to identify the fall- prone patient. Can J Aging 1989;8;366-7. Vernon Renteria (2009). Preventing patient falls. (2nd ed). [place]: [place]. PT-OP-G Mobility & Gait Start: 07/19/18 07:53 Freq: Status: Active Protocol: Document 07/19/18 10:15 AMB (Rec: 07/20/18 07:30 AMB [email or web address]) OP Gait Assessment Gait Gait Assistance Required: Standby Assistance Able to Maintain Weight Bearing Status Yes During Gait Assistive Devices Assistive Device Straight Cane Front Wheeled Walker Stair Climbing Evaluation Evaluation Level of Assist On Stairs Standby Assistance Devices Stair Climbing Assistive Devices Left Railing Right Railing Technique/Endurance Stair Climbing Direction Ascend and Descend Stair Climbing Technique Step Over Step Step to Step Number of Steps Climbed 6 Comments Stair Climbing Comments poor control on descend with step over step PT-OP-J Posture/Palpation/Skin Start: 07/20/18 12:35 Freq: Status: Active Protocol: Document 07/19/18 10:15 AMB (Rec: 07/20/18 12:39 AMB [email or web address]) Skin Assessment Edema Assessment Left Leg Edema Degree 1+ Comments From knee into foot PT-OP-K Range of Motion Start: 07/19/18 07:53 Freq: Status: Active Protocol: Document 07/19/18 10:15 AMB (Rec: 07/20/18 08:23 AMB [email or web address]) Knee Goniometric Range of Motion Knee Measured in Degrees Left Knee ROM WFL Yes Right Flexion Active (degrees) 109 Flexion Passive (degrees) 111 Extension Active (degrees) 12 Extension Passive (degrees) 5 PT-OP-M Strength Start: 07/19/18 07:53 Freq: Status: Active Protocol: Document 07/19/18 10:15 AMB (Rec: 07/20/18 08:44 AMB [email or web address]) Hip Strength Hip Manual Muscle Testing Right Flexion (L2) 4+ Good+ Extension (S1) 4 Good Abduction 4 Good Left Flexion (L2) 5 Normal Extension (S1) 5 Normal Abduction 5 Normal Knee Strength Knee Manual Muscle Testing Right Flexion (S2) 4+ Good+ Extension (L3) 4+ Good+ Left Flexion (S2) 5 Normal Extension (L3) 5 Normal Ankle/Foot Strength Ankle and Foot Manual Muscle Testing Right Dorsiflexion (L4) 4 Good Plantarflexion (S1) 4 Good Left Dorsiflexion (L4) 5 Normal Plantarflexion (S1) 5 Normal PT-OP-Q Treatments Start: 07/19/18 07:53 Freq: Status: Active Protocol: Document 09/12/18 09:45 AMB (Rec: 09/12/18 09:56 AMB [id number]) Cardio Equipment Bicycle (Upright) Duration (Minutes) 8 Resistance 12 Seat Position 2 Therapeutic Exercises Supine Exercises 4 Supine Exercise Name quad stretch Reps/Minutes 30x2 2 Supine Exercise Name calf stretch Reps/Minutes 30x2 Comments on MIKE Standing Exercises 4 Standing Exercise Name heel raises Reps/Minutes 2x10 2 Standing Exercise Name lunges without UE support Reps/Minutes fwd, side, diagonal Comments 3x5 1 Standing Exercise Name step ups Comments 8 step, vc control descent Manual Therapy Treatment Soft Tissue Mobilization 1 Body Location scar and posterior knee Mobilization Type Myofascial Release Strumming Body Position Supine Manual Techniques 1 Type PROM with OP Comments flexion and extension PT-OP-R Modalities Start: 07/19/18 07:53 Freq: Status: Active Protocol: Document 09/12/18 09:45 AMB (Rec: 09/13/18 08:28 AMB [email or web address]) Hot Pack/Cold Pack Treatment Cold Pack Location knee Patient Position Hooklying Treatment Duration (minutes) 10 PT-OP-T Assessment and Plan Start: 07/19/18 07:53 Freq: Status: Active Protocol: Document 12/11/18 09:45 AMB (Rec: 09/13/18 07:32 AMB [id number]) Physical Therapy Assessment Assessment Summary Assessment End range flexion and extension are still uncomfortable, pt becoming more comfortable with gait without AD Physical Therapy Plan Next Visit Focus/Plan Next Note Type Progress Note Next Visit Plan Maximize ROM, continue to progress dynamic balance, gait without assistive device
--- NOTE | 2018-09-14 15:42 | PT.OTN ---
Current Diagnoses Displaced bicondylar fracture of right tibia, initial encounter for closed fracture (09/14/18) Physical Therapy Treatment Note PT-OP-A Visit Information Start: 07/19/18 07:53 Freq: Status: Active Protocol: Document 09/14/18 10:30 AMB (Rec: 09/14/18 10:40 AMB [id number]) Out-Patient Physical Therapy Visit Information Visit Information Visit Type Progress Note Visit Note G code 10/12 Visit Start Time 10:30 Visit Stop Time 11:25 Total Visit Minutes 55 Visit Number 17 PT-OP-B Current Condition Start: 07/19/18 07:53 Freq: Status: Active Protocol: Document 07/19/18 10:15 AMB (Rec: 07/20/18 07:30 AMB [email or web address]) Current Condition History of Current Condition Onset Date 04/27/18 Current Complaints Difficulty walking, bending the knee, standing History of Current Condition The patient fell off a retaining wall in April while gardening. She had an ORIF for right lateral tibial plateau fracture. She has been cleared for WBAT as of . She has previously completed home health physical therapy. She lives in a 2 story home with 4 steps to enter (1 railing) with her who has his own mobility deficits and uses a motorized scooter in the community. She is currently using a FWW both in the home and the community. Prior Treatments and Tests Prior home health Treatment Goals Patient/Caregiver Goals Lift 35# into the car to get 's scooter into the trunk. Return to walking around [facility] (2 miles, hilly, without assistive device). Prior Functional Status Baseline Function- ADL's Independent Baseline Function- Mobility Independent Baseline Function- Gait Community ambulator without assistive device Baseline Function- Recreation/Hobbies Gardening Current Functional Impairments (Reported) Functional Limitations- ADL's Ambulates with FWW, has friends bring over meals, Functional Limitations- Mobility/Gait Can't carry anything up or down stairs, must use rail Personal Factors Other Personal Factors That May Effect History of breast cancer 1 Therapy/Recovery year ago, caregiver for her PT-OP-C Subjective Start: 07/19/18 07:53 Freq: Status: Active Protocol: Document 09/14/18 10:30 AMB (Rec: 09/14/18 10:40 AMB [id number]) OP-PT Subjective Patient Comments Patient Comments Pt does note intermittent lateral calf tightness. Pt walked yesterday for 45 minutes with her cane over smooth surfaces. PT-OP-D Balance Start: 07/19/18 07:53 Freq: Status: Active Protocol: Document 09/14/18 10:30 AMB (Rec: 09/14/18 11:59 AMB [email or web address]) OP-PT Balance Assessment Standing Balance Standing Balance Comments Standing balance (single leg stance) 10 seconds + Renteria Fall Scale Copyright Permission Myra JM, Myra RM, Sonja SJ. Development of a scale to identify the fall- prone patient. Can J Aging 1989;8;366-7. Vernon Renteria (2009). Preventing patient falls. (2nd ed). [place]: [place]. PT-OP-G Mobility & Gait Start: 07/19/18 07:53 Freq: Status: Active Protocol: Document 09/14/18 10:30 AMB (Rec: 09/14/18 11:59 AMB [email or web address]) OP Gait Assessment Gait Gait Assistance Required: Independent Assistive Devices Assistive Device Straight Cane 4 Wheeled Walker PT-OP-J Posture/Palpation/Skin Start: 07/20/18 12:35 Freq: Status: Active Protocol: Document 07/19/18 10:15 AMB (Rec: 07/20/18 12:39 AMB [email or web address]) Skin Assessment Edema Assessment Left Leg Edema Degree 1+ Comments From knee into foot PT-OP-K Range of Motion Start: 07/19/18 07:53 Freq: Status: Active Protocol: Document 09/14/18 10:30 AMB (Rec: 09/14/18 11:04 AMB [id number]) Knee Goniometric Range of Motion Knee Measured in Degrees Right Flexion Active (degrees) 122 Flexion Passive (degrees) 130 Extension Active (degrees) 4 PT-OP-M Strength Start: 07/19/18 07:53 Freq: Status: Active Protocol: Document 09/14/18 10:30 AMB (Rec: 09/14/18 11:59 AMB [email or web address]) Knee Strength Knee Manual Muscle Testing Right Flexion (S2) 4+ Good+ Extension (L3) 4+ Good+ Ankle/Foot Strength Ankle and Foot Manual Muscle Testing Right Dorsiflexion (L4) 4+ Good+ Plantarflexion (S1) 4+ Good+ PT-OP-Q Treatments Start: 07/19/18 07:53 Freq: Status: Active Protocol: Document 09/14/18 10:30 AMB (Rec: 09/14/18 12:58 AMB [email or web address]) Cardio Equipment Bicycle (Upright) Duration (Minutes) 10 Resistance 12 Seat Position 2 Therapeutic Exercises Supine Exercises 4 Supine Exercise Name quad stretch Reps/Minutes 30x2 Standing Exercises 4 Standing Exercise Name heel raises Reps/Minutes 2x10 Comments unilateral 3 Standing Exercise Name slow forward marches Comments to improve SLS time 2 Standing Exercise Name lunges without UE support Reps/Minutes fwd, side, diagonal Comments 3x5 1 Standing Exercise Name step ups Comments 8 step, vc control descent Manual Therapy Treatment Manual Techniques 1 Type PROM with OP Comments flexion and extension PT-OP-R Modalities Start: 07/19/18 07:53 Freq: Status: Active Protocol: Document 09/14/18 10:30 AMB (Rec: 09/14/18 12:59 AMB [email or web address]) Hot Pack/Cold Pack Treatment Cold Pack Location knee Patient Position Hooklying Treatment Duration (minutes) 10 PT-OP-T Assessment and Plan Start: 07/19/18 07:53 Freq: Status: Active Protocol: Document 09/14/18 10:30 AMB (Rec: 09/14/18 12:58 AMB [email or web address]) Physical Therapy Assessment Goals Three Impairment Strength Short Term Goal (STG) The patient will improve her LE strength so that she can safely ascend and descend a flight of stairs without needing a railing. Continues to need rail STG Duration 4 weeks Soap Mixer Goal (LTG) The patient will improve her LE strength so that she can perform a full squat to lift 35# from the floor to waist level with good body mechanics . LTG Duration MET Two Impairment Range of motion Short Term Goal (STG) The patient will improve her active knee flexion to 120 degrees. STG Duration MET One Impairment Gait Short Term Goal (STG) The patient will ambulate with a SPC for 10 minutes with 1/ 10 knee pain or less. STG Duration MET Jail Goal (LTG) The patient will ambulate without an assistive device for 30 minutes without an increase in baseline pain. : Pt needs SPC LTG Duration 8 weeks Assessment Summary Assessment The patient's range of motion and strength are improving well. She continues to need to use a cane for ambulation ( and a walker for gait outdoors ). She has high level goals of returning to gait without assistive device and doing extensive yardwork and housework (her uses a motorized scooter so she is the one who needs to do these things). She will benefit from continued physical therapy to maximize her range of motion, dynamic balance, and help her return to independent gait. Physical Therapy Plan Frequency and Duration Frequency of Treatment 2x/week, then 1x/ Duration of Treatment 8 weeks Plan of Care Start Date 09/14/18 Plan of Care End Date 11/09/17 Therapeutic Interventions Therapeutic Interventions Aquatic Therapy Balance Training Gait Training Home Exercise Program Joint Mobilizations Manual Therapy Neuromuscular Re-education Self-Care/Home Management Soft Tissue Mobilization Therapeutic Activities Therapeutic Exercises Modalities Cold Pack/Ice Massage Electric Stimulation Next Visit Focus/Plan Next Note Type Treatment Note Next Visit Plan Maximize ROM, continue to progress dynamic balance, gait without assistive device
--- NOTE | 2018-09-14 15:42 | PT.OPPOC ---
Current Diagnoses Displaced bicondylar fracture of right tibia, initial encounter for closed fracture (09/14/18) Provider Visit Care Team Role Provider Type Alex Mcgregor MD Family Provider Physician Primary Care Provider Specialty: Family Practice Address: [address] [place] [address], [id number] Email: Jerardo Venegas MD Attending Provider Non-Staff Specialty: Orthopedic Surgery Address: [address] [place] [address], [id number] Email: Plan Of Care PT-OP-T Assessment and Plan Start: 07/19/18 07:53 Freq: Status: Active Protocol: Document 09/14/18 10:30 AMB (Rec: 09/14/18 12:58 AMB [email or web address]) Physical Therapy Assessment Goals Three Impairment Strength Short Term Goal (STG) The patient will improve her LE strength so that she can safely ascend and descend a flight of stairs without needing a railing. Continues to need rail STG Duration 4 weeks Dock Supervisor Goal (LTG) The patient will improve her LE strength so that she can perform a full squat to lift 35# from the floor to waist level with good body mechanics . LTG Duration MET Two Impairment Range of motion Short Term Goal (STG) The patient will improve her active knee flexion to 120 degrees. STG Duration MET One Impairment Gait Short Term Goal (STG) The patient will ambulate with a SPC for 10 minutes with 1/ 10 knee pain or less. STG Duration MET Dock Supervisor Goal (LTG) The patient will ambulate without an assistive device for 30 minutes without an increase in baseline pain. : Pt needs SPC LTG Duration 8 weeks Assessment Summary Assessment The patient's range of motion and strength are improving well. She continues to need to use a cane for ambulation ( and a walker for gait outdoors ). She has high level goals of returning to gait without assistive device and doing extensive yardwork and housework (her uses a motorized scooter so she is the one who needs to do these things). She will benefit from continued physical therapy to maximize her range of motion, dynamic balance, and help her return to independent gait. Physical Therapy Plan Frequency and Duration Frequency of Treatment 2x/week, then 1x/ Duration of Treatment 8 weeks Plan of Care Start Date 09/14/18 Plan of Care End Date 11/09/17 Therapeutic Interventions Therapeutic Interventions Aquatic Therapy Balance Training Gait Training Home Exercise Program Joint Mobilizations Manual Therapy Neuromuscular Re-education Self-Care/Home Management Soft Tissue Mobilization Therapeutic Activities Therapeutic Exercises Modalities Cold Pack/Ice Massage Electric Stimulation Next Visit Focus/Plan Next Note Type Treatment Note Next Visit Plan Maximize ROM, continue to progress dynamic balance, gait without assistive device Plan of Care Dates Plan of Care Start Date 09/14/18 Plan of Care End Date 11/09/17 Please Sign and Return: I have reviewed this Plan of Care and certify that the skilled therapy services above are required to meet the patient?s needs. Physician Signature Date Printed Name and Credentials Clinical Instructor Signature Printed Name and Credentials
--- NOTE | 2018-09-19 15:48 | PT.OTN ---
Current Diagnoses Displaced bicondylar fracture of right tibia, initial encounter for closed fracture (09/19/18) Physical Therapy Treatment Note PT-OP-A Visit Information Start: 07/19/18 07:53 Freq: Status: Active Protocol: Document 09/19/18 11:15 AMB (Rec: 09/19/18 11:22 AMB [id number]) Out-Patient Physical Therapy Visit Information Visit Information Visit Type Treatment Note Visit Note G code 11/12 Visit Start Time 11:15 Visit Stop Time 12:10 Total Visit Minutes 55 Visit Number 18 PT-OP-B Current Condition Start: 07/19/18 07:53 Freq: Status: Active Protocol: Document 07/19/18 10:15 AMB (Rec: 07/20/18 07:30 AMB [email or web address]) Current Condition History of Current Condition Onset Date 04/27/18 Current Complaints Difficulty walking, bending the knee, standing History of Current Condition The patient fell off a retaining wall in April while gardening. She had an ORIF for right lateral tibial plateau fracture. She has been cleared for WBAT as of . She has previously completed home health physical therapy. She lives in a 2 story home with 4 steps to enter (1 railing) with her who has his own mobility deficits and uses a motorized scooter in the community. She is currently using a FWW both in the home and the community. Prior Treatments and Tests Prior home health Treatment Goals Patient/Caregiver Goals Lift 35# into the car to get 's scooter into the trunk. Return to walking around [facility] (2 miles, hilly, without assistive device). Prior Functional Status Baseline Function- ADL's Independent Baseline Function- Mobility Independent Baseline Function- Gait Community ambulator without assistive device Baseline Function- Recreation/Hobbies Gardening Current Functional Impairments (Reported) Functional Limitations- ADL's Ambulates with FWW, has friends bring over meals, Functional Limitations- Mobility/Gait Can't carry anything up or down stairs, must use rail Personal Factors Other Personal Factors That May Effect History of breast cancer 1 Therapy/Recovery year ago, caregiver for her PT-OP-C Subjective Start: 07/19/18 07:53 Freq: Status: Active Protocol: Document 09/19/18 11:15 AMB (Rec: 09/19/18 11:22 AMB [id number]) OP-PT Subjective Patient Comments Patient Comments Pt trying to not use SPC in the home. PT-OP-D Balance Start: 07/19/18 07:53 Freq: Status: Active Protocol: Document 09/14/18 10:30 AMB (Rec: 09/14/18 11:59 AMB [email or web address]) OP-PT Balance Assessment Standing Balance Standing Balance Comments Standing balance (single leg stance) 10 seconds + Renteria Fall Scale Copyright Permission Myra JM, Myra RM, Sonja SJ. Development of a scale to identify the fall- prone patient. Can J Aging 1989;8;366-7. [place] Renteria (2009). Preventing patient falls. (2nd ed). [place]: [place]. PT-OP-G Mobility & Gait Start: 07/19/18 07:53 Freq: Status: Active Protocol: Document 09/14/18 10:30 AMB (Rec: 09/14/18 11:59 AMB [email or web address]) OP Gait Assessment Gait Gait Assistance Required: Independent Assistive Devices Assistive Device Straight Cane 4 Wheeled Walker PT-OP-J Posture/Palpation/Skin Start: 07/20/18 12:35 Freq: Status: Active Protocol: Document 07/19/18 10:15 AMB (Rec: 07/20/18 12:39 AMB [email or web address]) Skin Assessment Edema Assessment Left Leg Edema Degree 1+ Comments From knee into foot PT-OP-K Range of Motion Start: 07/19/18 07:53 Freq: Status: Active Protocol: Document 09/14/18 10:30 AMB (Rec: 09/14/18 11:04 AMB [id number]) Knee Goniometric Range of Motion Knee Measured in Degrees Right Flexion Active (degrees) 122 Flexion Passive (degrees) 130 Extension Active (degrees) 4 PT-OP-M Strength Start: 07/19/18 07:53 Freq: Status: Active Protocol: Document 09/14/18 10:30 AMB (Rec: 09/14/18 11:59 AMB [email or web address]) Knee Strength Knee Manual Muscle Testing Right Flexion (S2) 4+ Good+ Extension (L3) 4+ Good+ Ankle/Foot Strength Ankle and Foot Manual Muscle Testing Right Dorsiflexion (L4) 4+ Good+ Plantarflexion (S1) 4+ Good+ PT-OP-Q Treatments Start: 07/19/18 07:53 Freq: Status: Active Protocol: Document 09/19/18 11:15 AMB (Rec: 09/19/18 11:25 AMB [id number]) Cardio Equipment Bicycle (Upright) Duration (Minutes) 8 Resistance 12 Seat Position 2 Therapeutic Exercises Supine Exercises 4 Supine Exercise Name quad stretch Reps/Minutes 30x2 2 Supine Exercise Name calf stretch Reps/Minutes 30x2 Comments on MIKE Standing Exercises 6 Standing Exercise Name hip abd Reps/Minutes 2x10 4 Standing Exercise Name heel raises Reps/Minutes 2x10 Comments unilateral 2 Standing Exercise Name lunges without UE support Reps/Minutes fwd, side, diagonal Comments 3x5 1 Standing Exercise Name step ups Comments 8 step, vc control descent Manual Therapy Treatment Manual Techniques 1 Type PROM with OP Comments flexion and extension PT-OP-R Modalities Start: 07/19/18 07:53 Freq: Status: Active Protocol: Document 09/19/18 11:15 AMB (Rec: 09/19/18 15:43 AMB [email or web address]) Hot Pack/Cold Pack Treatment Cold Pack Location knee Patient Position Hooklying Treatment Duration (minutes) 10 PT-OP-T Assessment and Plan Start: 07/19/18 07:53 Freq: Status: Active Protocol: Document 09/19/18 11:15 AMB (Rec: 09/19/18 15:43 AMB [email or web address]) Physical Therapy Assessment Assessment Summary Assessment Pt is doing well, dynamic balance continues to need to improve for good gait without AD. Physical Therapy Plan Next Visit Focus/Plan Next Note Type Treatment Note Next Visit Plan Maximize ROM, continue to progress dynamic balance, gait without assistive device
--- NOTE | 2018-09-22 12:04 | PT.OTN ---
Current Diagnoses Displaced bicondylar fracture of right tibia, initial encounter for closed fracture (09/22/18) Physical Therapy Treatment Note PT-OP-A Visit Information Start: 07/19/18 07:53 Freq: Status: Active Protocol: Document 09/22/18 11:15 AMB (Rec: 09/22/18 11:19 AMB [id number]) Out-Patient Physical Therapy Visit Information Visit Information Visit Type Treatment Note Visit Note G code 12/10 Visit Start Time 11:15 Visit Stop Time 12:10 Total Visit Minutes 55 Visit Number 19 PT-OP-B Current Condition Start: 07/19/18 07:53 Freq: Status: Active Protocol: Document 07/19/18 10:15 AMB (Rec: 07/20/18 07:30 AMB [email or web address]) Current Condition History of Current Condition Onset Date 04/27/18 Current Complaints Difficulty walking, bending the knee, standing History of Current Condition The patient fell off a retaining wall in April while gardening. She had an ORIF for right lateral tibial plateau fracture. She has been cleared for WBAT as of . She has previously completed home health physical therapy. She lives in a 2 story home with 4 steps to enter (1 railing) with her who has his own mobility deficits and uses a motorized scooter in the community. She is currently using a FWW both in the home and the community. Prior Treatments and Tests Prior home health Treatment Goals Patient/Caregiver Goals Lift 35# into the car to get 's scooter into the trunk. Return to walking around [facility] (2 miles, hilly, without assistive device). Prior Functional Status Baseline Function- ADL's Independent Baseline Function- Mobility Independent Baseline Function- Gait Community ambulator without assistive device Baseline Function- Recreation/Hobbies Gardening Current Functional Impairments (Reported) Functional Limitations- ADL's Ambulates with FWW, has friends bring over meals, Functional Limitations- Mobility/Gait Can't carry anything up or down stairs, must use rail Personal Factors Other Personal Factors That May Effect History of breast cancer 1 Therapy/Recovery year ago, caregiver for her PT-OP-C Subjective Start: 07/19/18 07:53 Freq: Status: Active Protocol: Document 09/22/18 11:15 AMB (Rec: 09/22/18 11:19 AMB [id number]) OP-PT Subjective Patient Comments Patient Comments Pt says she is feeling good. Tired by the end of the day. PT-OP-D Balance Start: 07/19/18 07:53 Freq: Status: Active Protocol: Document 09/14/18 10:30 AMB (Rec: 09/14/18 11:59 AMB [email or web address]) OP-PT Balance Assessment Standing Balance Standing Balance Comments Standing balance (single leg stance) 10 seconds + Renteria Fall Scale Copyright Permission Myra JM, Myra RM, Sonja SJ. Development of a scale to identify the fall- prone patient. Can J Aging 1989;8;366-7. [place] Renteria (2009). Preventing patient falls. (2nd ed). [place]: [place]. PT-OP-G Mobility & Gait Start: 07/19/18 07:53 Freq: Status: Active Protocol: Document 09/14/18 10:30 AMB (Rec: 09/14/18 11:59 AMB [email or web address]) OP Gait Assessment Gait Gait Assistance Required: Independent Assistive Devices Assistive Device Straight Cane 4 Wheeled Walker PT-OP-J Posture/Palpation/Skin Start: 07/20/18 12:35 Freq: Status: Active Protocol: Document 07/19/18 10:15 AMB (Rec: 07/20/18 12:39 AMB [email or web address]) Skin Assessment Edema Assessment Left Leg Edema Degree 1+ Comments From knee into foot PT-OP-K Range of Motion Start: 07/19/18 07:53 Freq: Status: Active Protocol: Document 09/14/18 10:30 AMB (Rec: 09/14/18 11:04 AMB [id number]) Knee Goniometric Range of Motion Knee Measured in Degrees Right Flexion Active (degrees) 122 Flexion Passive (degrees) 130 Extension Active (degrees) 4 PT-OP-M Strength Start: 07/19/18 07:53 Freq: Status: Active Protocol: Document 09/14/18 10:30 AMB (Rec: 09/14/18 11:59 AMB [email or web address]) Knee Strength Knee Manual Muscle Testing Right Flexion (S2) 4+ Good+ Extension (L3) 4+ Good+ Ankle/Foot Strength Ankle and Foot Manual Muscle Testing Right Dorsiflexion (L4) 4+ Good+ Plantarflexion (S1) 4+ Good+ PT-OP-Q Treatments Start: 07/19/18 07:53 Freq: Status: Active Protocol: Document 09/22/18 11:15 AMB (Rec: 09/22/18 11:23 AMB [id number]) Cardio Equipment Bicycle (Upright) Duration (Minutes) 8 Resistance 12 Seat Position 2 Therapeutic Exercises Supine Exercises 4 Supine Exercise Name quad stretch Reps/Minutes 30x2 2 Supine Exercise Name calf stretch Reps/Minutes 30x2 Comments on MIKE Standing Exercises 8 Standing Exercise Name single leg squat Reps/Minutes 2x10 Comments toe touch down for balance 7 Standing Exercise Name BOSU ball balance Comments needs UE support 6 Standing Exercise Name hip abd Reps/Minutes 2x10 4 Standing Exercise Name heel raises Reps/Minutes 2x10 Comments unilateral 3 Standing Exercise Name slow forward marches Comments to improve SLS time 2 Standing Exercise Name lunges without UE support Reps/Minutes fwd, side, diagonal Comments 3x5 1 Standing Exercise Name step ups Comments 8 step, vc control descent Gait Training Gait Activity 2 Description 400' without AD Manual Therapy Treatment Manual Techniques 1 Type PROM with OP Comments flexion and extension PT-OP-R Modalities Start: 07/19/18 07:53 Freq: Status: Active Protocol: Document 09/22/18 11:15 AMB (Rec: 09/22/18 11:23 AMB [id number]) Hot Pack/Cold Pack Treatment Cold Pack Location knee Patient Position Hooklying Treatment Duration (minutes) 10 PT-OP-T Assessment and Plan Start: 07/19/18 07:53 Freq: Status: Active Protocol: Document 09/22/18 11:15 AMB (Rec: 09/22/18 12:02 AMB [email or web address]) Physical Therapy Assessment Assessment Summary Assessment Stiffness with end range flex ext but tolerated more strengthening well. Pt able to ambulate around clinic carefully without AD. Physical Therapy Plan Next Visit Focus/Plan Next Note Type Treatment Note Next Visit Plan Maximize ROM, continue to progress dynamic balance, gait without assistive device
--- NOTE | 2018-09-27 15:33 | PT.OTN ---
Current Diagnoses Displaced bicondylar fracture of right tibia, initial encounter for closed fracture (09/27/18) Physical Therapy Treatment Note PT-OP-A Visit Information Start: 07/19/18 07:53 Freq: Status: Active Protocol: Document 09/27/18 13:45 AMB (Rec: 09/27/18 13:51 AMB [id number]) Out-Patient Physical Therapy Visit Information Visit Information Visit Type Treatment Note Visit Note G code 12/10 Visit Start Time 13:45 Visit Stop Time 14:40 Total Visit Minutes 55 Visit Number 20 PT-OP-B Current Condition Start: 07/19/18 07:53 Freq: Status: Active Protocol: Document 07/19/18 10:15 AMB (Rec: 07/20/18 07:30 AMB [email or web address]) Current Condition History of Current Condition Onset Date 04/27/18 Current Complaints Difficulty walking, bending the knee, standing History of Current Condition The patient fell off a retaining wall in April while gardening. She had an ORIF for right lateral tibial plateau fracture. She has been cleared for WBAT as of . She has previously completed home health physical therapy. She lives in a 2 story home with 4 steps to enter (1 railing) with her who has his own mobility deficits and uses a motorized scooter in the community. She is currently using a FWW both in the home and the community. Prior Treatments and Tests Prior home health Treatment Goals Patient/Caregiver Goals Lift 35# into the car to get 's scooter into the trunk. Return to walking around [facility] (2 miles, hilly, without assistive device). Prior Functional Status Baseline Function- ADL's Independent Baseline Function- Mobility Independent Baseline Function- Gait Community ambulator without assistive device Baseline Function- Recreation/Hobbies Gardening Current Functional Impairments (Reported) Functional Limitations- ADL's Ambulates with FWW, has friends bring over meals, Functional Limitations- Mobility/Gait Can't carry anything up or down stairs, must use rail Personal Factors Other Personal Factors That May Effect History of breast cancer 1 Therapy/Recovery year ago, caregiver for her PT-OP-C Subjective Start: 07/19/18 07:53 Freq: Status: Active Protocol: Document 09/27/18 13:45 AMB (Rec: 09/27/18 13:51 AMB [id number]) OP-PT Subjective Patient Comments Patient Comments Walked on [address] today , feeling fine. PT-OP-D Balance Start: 07/19/18 07:53 Freq: Status: Active Protocol: Document 09/14/18 10:30 AMB (Rec: 09/14/18 11:59 AMB [email or web address]) OP-PT Balance Assessment Standing Balance Standing Balance Comments Standing balance (single leg stance) 10 seconds + Renteria Fall Scale Copyright Permission Myra JM, Myra RM, Sonja SJ. Development of a scale to identify the fall- prone patient. Can J Aging 1989;8;366-7. Vernon Renteria (2009). Preventing patient falls. (2nd ed). [place]: [place]. PT-OP-G Mobility & Gait Start: 07/19/18 07:53 Freq: Status: Active Protocol: Document 09/14/18 10:30 AMB (Rec: 09/14/18 11:59 AMB [email or web address]) OP Gait Assessment Gait Gait Assistance Required: Independent Assistive Devices Assistive Device Straight Cane 4 Wheeled Walker PT-OP-J Posture/Palpation/Skin Start: 07/20/18 12:35 Freq: Status: Active Protocol: Document 07/19/18 10:15 AMB (Rec: 07/20/18 12:39 AMB [email or web address]) Skin Assessment Edema Assessment Left Leg Edema Degree 1+ Comments From knee into foot PT-OP-K Range of Motion Start: 07/19/18 07:53 Freq: Status: Active Protocol: Document 09/14/18 10:30 AMB (Rec: 09/14/18 11:04 AMB [id number]) Knee Goniometric Range of Motion Knee Measured in Degrees Right Flexion Active (degrees) 122 Flexion Passive (degrees) 130 Extension Active (degrees) 4 PT-OP-M Strength Start: 07/19/18 07:53 Freq: Status: Active Protocol: Document 09/14/18 10:30 AMB (Rec: 09/14/18 11:59 AMB [email or web address]) Knee Strength Knee Manual Muscle Testing Right Flexion (S2) 4+ Good+ Extension (L3) 4+ Good+ Ankle/Foot Strength Ankle and Foot Manual Muscle Testing Right Dorsiflexion (L4) 4+ Good+ Plantarflexion (S1) 4+ Good+ PT-OP-Q Treatments Start: 07/19/18 07:53 Freq: Status: Active Protocol: Document 09/27/18 13:45 AMB (Rec: 09/27/18 15:33 AMB [email or web address]) Cardio Equipment Bicycle (Upright) Duration (Minutes) 8 Resistance 12 Seat Position 2 Gym Equipment Shuttle Balance 1 Details RED Comments modified tandem Therapeutic Exercises Supine Exercises 4 Supine Exercise Name quad stretch Reps/Minutes 30x2 2 Supine Exercise Name calf stretch Reps/Minutes 30x2 Comments on MIKE Standing Exercises 10 Standing Exercise Name hurdles Comments forward and sidestepping 9 Standing Exercise Name walking lunges Comments with trunk rotation, no UE support 8 Standing Exercise Name single leg squat Reps/Minutes 2x10 Comments toe touch down for balance 4 Standing Exercise Name heel raises Reps/Minutes 2x10 Comments unilateral 2 Standing Exercise Name lunges without UE support Reps/Minutes fwd, side, diagonal Comments 3x5 1 Standing Exercise Name step ups Comments 8 step, vc control descent Gait Training Gait Activity 2 Description 400' without AD Manual Therapy Treatment Manual Techniques 1 Type PROM with OP Comments flexion and extension PT-OP-R Modalities Start: 07/19/18 07:53 Freq: Status: Active Protocol: Document 09/27/18 13:45 AMB (Rec: 09/27/18 15:33 AMB [email or web address]) Hot Pack/Cold Pack Treatment Cold Pack Location knee Patient Position Hooklying Treatment Duration (minutes) 10 PT-OP-T Assessment and Plan Start: 07/19/18 07:53 Freq: Status: Active Protocol: Document 09/27/18 13:45 AMB (Rec: 09/27/18 15:33 AMB [email or web address]) Physical Therapy Assessment Assessment Summary Assessment Pt [facility] without her cane. Kneeling and not having the knee hurts is still difficult. Physical Therapy Plan Next Visit Focus/Plan Next Note Type Treatment Note Next Visit Plan Maximize ROM, continue to progress dynamic balance, gait without assistive device
--- NOTE | 2018-09-29 16:17 | PT.OTN ---
Current Diagnoses Displaced bicondylar fracture of right tibia, initial encounter for closed fracture (09/29/18) Physical Therapy Treatment Note PT-OP-A Visit Information Start: 07/19/18 07:53 Freq: Status: Active Protocol: Document 09/29/18 13:45 AMB (Rec: 09/29/18 13:56 AMB [id number]) Out-Patient Physical Therapy Visit Information Visit Information Visit Type Treatment Note Visit Note G code 02/09 Visit Start Time 13:45 Visit Stop Time 14:40 Total Visit Minutes 55 Visit Number 21 PT-OP-B Current Condition Start: 07/19/18 07:53 Freq: Status: Active Protocol: Document 07/19/18 10:15 AMB (Rec: 07/20/18 07:30 AMB [email or web address]) Current Condition History of Current Condition Onset Date 04/27/18 Current Complaints Difficulty walking, bending the knee, standing History of Current Condition The patient fell off a retaining wall in April while gardening. She had an ORIF for right lateral tibial plateau fracture. She has been cleared for WBAT as of . She has previously completed home health physical therapy. She lives in a 2 story home with 4 steps to enter (1 railing) with her who has his own mobility deficits and uses a motorized scooter in the community. She is currently using a FWW both in the home and the community. Prior Treatments and Tests Prior home health Treatment Goals Patient/Caregiver Goals Lift 35# into the car to get 's scooter into the trunk. Return to walking around [facility] (2 miles, hilly, without assistive device). Prior Functional Status Baseline Function- ADL's Independent Baseline Function- Mobility Independent Baseline Function- Gait Community ambulator without assistive device Baseline Function- Recreation/Hobbies Gardening Current Functional Impairments (Reported) Functional Limitations- ADL's Ambulates with FWW, has friends bring over meals, Functional Limitations- Mobility/Gait Can't carry anything up or down stairs, must use rail Personal Factors Other Personal Factors That May Effect History of breast cancer 1 Therapy/Recovery year ago, caregiver for her PT-OP-C Subjective Start: 07/19/18 07:53 Freq: Status: Active Protocol: Document 09/29/18 13:45 AMB (Rec: 09/29/18 13:56 AMB [id number]) OP-PT Subjective Patient Comments Patient Comments The patient reports she walked at the [facility] for 45 minutes without her cane. PT-OP-D Balance Start: 07/19/18 07:53 Freq: Status: Active Protocol: Document 09/14/18 10:30 AMB (Rec: 09/14/18 11:59 AMB [email or web address]) OP-PT Balance Assessment Standing Balance Standing Balance Comments Standing balance (single leg stance) 10 seconds + Renteria Fall Scale Copyright Permission Myra JM, Myra RM, Sonja SJ. Development of a scale to identify the fall- prone patient. Can J Aging 1989;8;366-7. [place] Renteria (2009). Preventing patient falls. (2nd ed). [place]: [place]. PT-OP-G Mobility & Gait Start: 07/19/18 07:53 Freq: Status: Active Protocol: Document 09/14/18 10:30 AMB (Rec: 09/14/18 11:59 AMB [email or web address]) OP Gait Assessment Gait Gait Assistance Required: Independent Assistive Devices Assistive Device Straight Cane 4 Wheeled Walker PT-OP-J Posture/Palpation/Skin Start: 07/20/18 12:35 Freq: Status: Active Protocol: Document 07/19/18 10:15 AMB (Rec: 07/20/18 12:39 AMB [email or web address]) Skin Assessment Edema Assessment Left Leg Edema Degree 1+ Comments From knee into foot PT-OP-K Range of Motion Start: 07/19/18 07:53 Freq: Status: Active Protocol: Document 09/14/18 10:30 AMB (Rec: 09/14/18 11:04 AMB [id number]) Knee Goniometric Range of Motion Knee Measured in Degrees Right Flexion Active (degrees) 122 Flexion Passive (degrees) 130 Extension Active (degrees) 4 PT-OP-M Strength Start: 07/19/18 07:53 Freq: Status: Active Protocol: Document 09/14/18 10:30 AMB (Rec: 09/14/18 11:59 AMB [email or web address]) Knee Strength Knee Manual Muscle Testing Right Flexion (S2) 4+ Good+ Extension (L3) 4+ Good+ Ankle/Foot Strength Ankle and Foot Manual Muscle Testing Right Dorsiflexion (L4) 4+ Good+ Plantarflexion (S1) 4+ Good+ PT-OP-Q Treatments Start: 07/19/18 07:53 Freq: Status: Active Protocol: Document 09/29/18 13:45 AMB (Rec: 09/29/18 16:17 AMB [email or web address]) Therapeutic Exercises Supine Exercises 4 Supine Exercise Name quad stretch Reps/Minutes 30x2 2 Supine Exercise Name calf stretch Reps/Minutes 30x2 Comments on MIKE Standing Exercises 10 Standing Exercise Name hurdles Comments forward and sidestepping 9 Standing Exercise Name walking lunges Comments with trunk rotation, no UE support 8 Standing Exercise Name single leg squat Reps/Minutes 2x10 Comments toe touch down for balance 4 Standing Exercise Name heel raises Reps/Minutes 2x10 Comments unilateral 2 Standing Exercise Name lunges without UE support Reps/Minutes fwd, side, diagonal Comments 3x5 Manual Therapy Treatment Manual Techniques 1 Type PROM with OP Comments flexion and extension PT-OP-R Modalities Start: 07/19/18 07:53 Freq: Status: Active Protocol: Document 09/29/18 13:45 AMB (Rec: 09/29/18 16:17 AMB [email or web address]) Hot Pack/Cold Pack Treatment Cold Pack Location knee Patient Position Hooklying Treatment Duration (minutes) 10 PT-OP-T Assessment and Plan Start: 07/19/18 07:53 Freq: Status: Active Protocol: Document 09/29/18 13:45 AMB (Rec: 09/29/18 16:17 AMB [email or web address]) Physical Therapy Assessment Assessment Summary Assessment Pt is doing well, will need to progress her dynamic balance, still lacking end range extension and flexion. Physical Therapy Plan Next Visit Focus/Plan Next Note Type Treatment Note Next Visit Plan Maximize ROM, continue to progress dynamic balance, gait without assistive device
--- NOTE | 2018-10-02 14:30 | PT.OTN ---
Current Diagnoses Displaced bicondylar fracture of right tibia, initial encounter for closed fracture (10/02/18) Physical Therapy Treatment Note PT-OP-A Visit Information Start: 07/19/18 07:53 Freq: Status: Active Protocol: Document 10/02/18 13:44 AMB (Rec: 10/02/18 13:46 AMB [id number]) Out-Patient Physical Therapy Visit Information Visit Information Visit Type Treatment Note Visit Note G code 03/12 Visit Start Time 13:45 Visit Stop Time 14:40 Total Visit Minutes 55 Visit Number 22 PT-OP-B Current Condition Start: 07/19/18 07:53 Freq: Status: Active Protocol: Document 07/19/18 10:15 AMB (Rec: 07/20/18 07:30 AMB [email or web address]) Current Condition History of Current Condition Onset Date 04/27/18 Current Complaints Difficulty walking, bending the knee, standing History of Current Condition The patient fell off a retaining wall in April while gardening. She had an ORIF for right lateral tibial plateau fracture. She has been cleared for WBAT as of . She has previously completed home health physical therapy. She lives in a 2 story home with 4 steps to enter (1 railing) with her who has his own mobility deficits and uses a motorized scooter in the community. She is currently using a FWW both in the home and the community. Prior Treatments and Tests Prior home health Treatment Goals Patient/Caregiver Goals Lift 35# into the car to get 's scooter into the trunk. Return to walking around [facility] (2 miles, hilly, without assistive device). Prior Functional Status Baseline Function- ADL's Independent Baseline Function- Mobility Independent Baseline Function- Gait Community ambulator without assistive device Baseline Function- Recreation/Hobbies Gardening Current Functional Impairments (Reported) Functional Limitations- ADL's Ambulates with FWW, has friends bring over meals, Functional Limitations- Mobility/Gait Can't carry anything up or down stairs, must use rail Personal Factors Other Personal Factors That May Effect History of breast cancer 1 Therapy/Recovery year ago, caregiver for her PT-OP-C Subjective Start: 07/19/18 07:53 Freq: Status: Active Protocol: Document 10/02/18 13:44 AMB (Rec: 10/02/18 13:46 AMB [id number]) OP-PT Subjective Patient Comments Patient Comments Pt reports she is feeling more confident on her feet overall . Is forgetting her cane more . PT-OP-D Balance Start: 07/19/18 07:53 Freq: Status: Active Protocol: Document 09/14/18 10:30 AMB (Rec: 09/14/18 11:59 AMB [email or web address]) OP-PT Balance Assessment Standing Balance Standing Balance Comments Standing balance (single leg stance) 10 seconds + Renteria Fall Scale Copyright Permission Myra JM, Myra RM, Sonja SJ. Development of a scale to identify the fall- prone patient. Can J Aging 1989;8;366-7. [place] Renteria (2009). Preventing patient falls. (2nd ed). [place]: [place]. PT-OP-G Mobility & Gait Start: 07/19/18 07:53 Freq: Status: Active Protocol: Document 09/14/18 10:30 AMB (Rec: 09/14/18 11:59 AMB [email or web address]) OP Gait Assessment Gait Gait Assistance Required: Independent Assistive Devices Assistive Device Straight Cane 4 Wheeled Walker PT-OP-J Posture/Palpation/Skin Start: 07/20/18 12:35 Freq: Status: Active Protocol: Document 07/19/18 10:15 AMB (Rec: 07/20/18 12:39 AMB [email or web address]) Skin Assessment Edema Assessment Left Leg Edema Degree 1+ Comments From knee into foot PT-OP-K Range of Motion Start: 07/19/18 07:53 Freq: Status: Active Protocol: Document 09/14/18 10:30 AMB (Rec: 09/14/18 11:04 AMB [id number]) Knee Goniometric Range of Motion Knee Measured in Degrees Right Flexion Active (degrees) 122 Flexion Passive (degrees) 130 Extension Active (degrees) 4 PT-OP-M Strength Start: 07/19/18 07:53 Freq: Status: Active Protocol: Document 09/14/18 10:30 AMB (Rec: 09/14/18 11:59 AMB [email or web address]) Knee Strength Knee Manual Muscle Testing Right Flexion (S2) 4+ Good+ Extension (L3) 4+ Good+ Ankle/Foot Strength Ankle and Foot Manual Muscle Testing Right Dorsiflexion (L4) 4+ Good+ Plantarflexion (S1) 4+ Good+ PT-OP-Q Treatments Start: 07/19/18 07:53 Freq: Status: Active Protocol: Document 10/02/18 13:45 AMB (Rec: 10/02/18 13:50 AMB [id number]) Cardio Equipment Bicycle (Upright) Duration (Minutes) 8 Resistance 12 Seat Position 2 Therapeutic Exercises Supine Exercises 4 Supine Exercise Name quad stretch Reps/Minutes 30x2 2 Supine Exercise Name calf stretch Reps/Minutes 30x2 Comments on MIKE Standing Exercises 10 Standing Exercise Name hurdles Comments forward and sidestepping 9 Standing Exercise Name walking lunges Comments with trunk rotation, no UE support 8 Standing Exercise Name single leg squat Reps/Minutes 2x10 Comments toe touch down for balance 7 Standing Exercise Name BOSU ball balance Comments needs UE support 6 Standing Exercise Name hip abd Reps/Minutes 2x10 5 Standing Exercise Name calf stretch on MIKE Reps/Minutes 30x2 4 Standing Exercise Name heel raises Reps/Minutes 2x10 Comments unilateral 2 Standing Exercise Name lunges without UE support Reps/Minutes fwd, side, diagonal Comments 3x5, added high march single leg stance Manual Therapy Treatment Manual Techniques 1 Type PROM with OP Comments flexion and extension PT-OP-R Modalities Start: 07/19/18 07:53 Freq: Status: Active Protocol: Document 10/02/18 13:45 AMB (Rec: 10/02/18 13:50 AMB [id number]) Hot Pack/Cold Pack Treatment Cold Pack Location knee Patient Position Hooklying Treatment Duration (minutes) 10 PT-OP-T Assessment and Plan Start: 07/19/18 07:53 Freq: Status: Active Protocol: Document 10/02/18 13:45 AMB (Rec: 10/02/18 14:28 AMB [id number]) Physical Therapy Assessment Assessment Summary Assessment Pt is doing well with walking, single leg balance remains challenging. Physical Therapy Plan Next Visit Focus/Plan Next Note Type Treatment Note Next Visit Plan Maximize ROM, continue to progress dynamic balance, gait without assistive device
--- NOTE | 2018-10-04 15:27 | PT.OTN ---
Current Diagnoses Displaced bicondylar fracture of right tibia, initial encounter for closed fracture (10/04/18) Physical Therapy Treatment Note PT-OP-A Visit Information Start: 07/19/18 07:53 Freq: Status: Active Protocol: Document 10/04/18 13:45 AMB (Rec: 10/04/18 13:51 AMB [email or web address]) Out-Patient Physical Therapy Visit Information Visit Information Visit Type Treatment Note Visit Note G code 04/11 Visit Start Time 13:45 Visit Stop Time 14:40 Total Visit Minutes 55 Visit Number 23 PT-OP-B Current Condition Start: 07/19/18 07:53 Freq: Status: Active Protocol: Document 07/19/18 10:15 AMB (Rec: 07/20/18 07:30 AMB [email or web address]) Current Condition History of Current Condition Onset Date 04/27/18 Current Complaints Difficulty walking, bending the knee, standing History of Current Condition The patient fell off a retaining wall in April while gardening. She had an ORIF for right lateral tibial plateau fracture. She has been cleared for WBAT as of . She has previously completed home health physical therapy. She lives in a 2 story home with 4 steps to enter (1 railing) with her who has his own mobility deficits and uses a motorized scooter in the community. She is currently using a FWW both in the home and the community. Prior Treatments and Tests Prior home health Treatment Goals Patient/Caregiver Goals Lift 35# into the car to get 's scooter into the trunk. Return to walking around [facility] (2 miles, hilly, without assistive device). Prior Functional Status Baseline Function- ADL's Independent Baseline Function- Mobility Independent Baseline Function- Gait Community ambulator without assistive device Baseline Function- Recreation/Hobbies Gardening Current Functional Impairments (Reported) Functional Limitations- ADL's Ambulates with FWW, has friends bring over meals, Functional Limitations- Mobility/Gait Can't carry anything up or down stairs, must use rail Personal Factors Other Personal Factors That May Effect History of breast cancer 1 Therapy/Recovery year ago, caregiver for her PT-OP-C Subjective Start: 07/19/18 07:53 Freq: Status: Active Protocol: Document 10/04/18 13:45 AMB (Rec: 10/04/18 13:51 AMB [id number]) OP-PT Subjective Patient Comments Patient Comments Did 15 minutes of faster walking at the senior center ( without cane). PT-OP-D Balance Start: 07/19/18 07:53 Freq: Status: Active Protocol: Document 09/14/18 10:30 AMB (Rec: 09/14/18 11:59 AMB [email or web address]) OP-PT Balance Assessment Standing Balance Standing Balance Comments Standing balance (single leg stance) 10 seconds + Renteria Fall Scale Copyright Permission Myra JM, Myra RM, Sonja SJ. Development of a scale to identify the fall- prone patient. Can J Aging 1989;8;366-7. [place] Renteria (2009). Preventing patient falls. (2nd ed). [place]: [place]. PT-OP-G Mobility & Gait Start: 07/19/18 07:53 Freq: Status: Active Protocol: Document 09/14/18 10:30 AMB (Rec: 09/14/18 11:59 AMB [email or web address]) OP Gait Assessment Gait Gait Assistance Required: Independent Assistive Devices Assistive Device Straight Cane 4 Wheeled Walker PT-OP-J Posture/Palpation/Skin Start: 07/20/18 12:35 Freq: Status: Active Protocol: Document 07/19/18 10:15 AMB (Rec: 07/20/18 12:39 AMB [email or web address]) Skin Assessment Edema Assessment Left Leg Edema Degree 1+ Comments From knee into foot PT-OP-K Range of Motion Start: 07/19/18 07:53 Freq: Status: Active Protocol: Document 09/14/18 10:30 AMB (Rec: 09/14/18 11:04 AMB [id number]) Knee Goniometric Range of Motion Knee Measured in Degrees Right Flexion Active (degrees) 122 Flexion Passive (degrees) 130 Extension Active (degrees) 4 PT-OP-M Strength Start: 07/19/18 07:53 Freq: Status: Active Protocol: Document 09/14/18 10:30 AMB (Rec: 09/14/18 11:59 AMB [email or web address]) Knee Strength Knee Manual Muscle Testing Right Flexion (S2) 4+ Good+ Extension (L3) 4+ Good+ Ankle/Foot Strength Ankle and Foot Manual Muscle Testing Right Dorsiflexion (L4) 4+ Good+ Plantarflexion (S1) 4+ Good+ PT-OP-Q Treatments Start: 07/19/18 07:53 Freq: Status: Active Protocol: Document 10/04/18 13:45 AMB (Rec: 10/04/18 13:53 AMB [id number]) Therapeutic Exercises Standing Exercises 10 Standing Exercise Name hurdles Comments forward and sidestepping 9 Standing Exercise Name walking lunges Comments with trunk rotation, no UE support 8 Standing Exercise Name single leg squat Reps/Minutes 2x10 Comments toe touch down for balance 5 Standing Exercise Name calf stretch on MIKE Reps/Minutes 30x2 4 Standing Exercise Name heel raises Reps/Minutes 2x10 Comments unilateral Manual Therapy Treatment Manual Techniques 1 Type PROM with OP Comments flexion and extension PT-OP-R Modalities Start: 07/19/18 07:53 Freq: Status: Active Protocol: Document 10/04/18 13:45 AMB (Rec: 10/04/18 15:27 AMB [email or web address]) Hot Pack/Cold Pack Treatment Cold Pack Location knee Patient Position Hooklying Treatment Duration (minutes) 10 PT-OP-T Assessment and Plan Start: 07/19/18 07:53 Freq: Status: Active Protocol: Document 10/04/18 13:45 AMB (Rec: 10/04/18 15:27 AMB [email or web address]) Physical Therapy Assessment Assessment Summary Assessment Improvement with balance, but single leg heel raise remains difficult Physical Therapy Plan Next Visit Focus/Plan Next Note Type Treatment Note Next Visit Plan Maximize ROM, continue to progress dynamic balance, gait without assistive device
--- NOTE | 2018-10-11 12:00 | PT.OTN ---
Current Diagnoses Displaced bicondylar fracture of right tibia, initial encounter for closed fracture (10/11/18) Physical Therapy Treatment Note PT-OP-A Visit Information Start: 07/19/18 07:53 Freq: Status: Active Protocol: Document 10/11/18 11:15 AMB (Rec: 10/11/18 11:26 AMB [id number]) Out-Patient Physical Therapy Visit Information Visit Information Visit Type Treatment Note Visit Note G code 05/12 Visit Start Time 11:15 Visit Stop Time 12:10 Total Visit Minutes 55 Visit Number 24 PT-OP-B Current Condition Start: 07/19/18 07:53 Freq: Status: Active Protocol: Document 07/19/18 10:15 AMB (Rec: 07/20/18 07:30 AMB [email or web address]) Current Condition History of Current Condition Onset Date 04/27/18 Current Complaints Difficulty walking, bending the knee, standing History of Current Condition The patient fell off a retaining wall in April while gardening. She had an ORIF for right lateral tibial plateau fracture. She has been cleared for WBAT as of . She has previously completed home health physical therapy. She lives in a 2 story home with 4 steps to enter (1 railing) with her who has his own mobility deficits and uses a motorized scooter in the community. She is currently using a FWW both in the home and the community. Prior Treatments and Tests Prior home health Treatment Goals Patient/Caregiver Goals Lift 35# into the car to get 's scooter into the trunk. Return to walking around [facility] (2 miles, hilly, without assistive device). Prior Functional Status Baseline Function- ADL's Independent Baseline Function- Mobility Independent Baseline Function- Gait Community ambulator without assistive device Baseline Function- Recreation/Hobbies Gardening Current Functional Impairments (Reported) Functional Limitations- ADL's Ambulates with FWW, has friends bring over meals, Functional Limitations- Mobility/Gait Can't carry anything up or down stairs, must use rail Personal Factors Other Personal Factors That May Effect History of breast cancer 1 Therapy/Recovery year ago, caregiver for her PT-OP-C Subjective Start: 07/19/18 07:53 Freq: Status: Active Protocol: Document 10/11/18 11:15 AMB (Rec: 10/11/18 11:26 AMB [id number]) OP-PT Subjective Patient Comments Patient Comments Walking 1 hour at [facility] without AD. Walked [place] without AD for 1.5 miles. PT-OP-D Balance Start: 07/19/18 07:53 Freq: Status: Active Protocol: Document 09/14/18 10:30 AMB (Rec: 09/14/18 11:59 AMB [email or web address]) OP-PT Balance Assessment Standing Balance Standing Balance Comments Standing balance (single leg stance) 10 seconds + Renteria Fall Scale Copyright Permission Myra JM, Myra RM, Sonja SJ. Development of a scale to identify the fall- prone patient. Can J Aging 1989;8;366-7. Vernon Renteria (2009). Preventing patient falls. (2nd ed). [place]: [place]. PT-OP-G Mobility & Gait Start: 07/19/18 07:53 Freq: Status: Active Protocol: Document 09/14/18 10:30 AMB (Rec: 09/14/18 11:59 AMB [email or web address]) OP Gait Assessment Gait Gait Assistance Required: Independent Assistive Devices Assistive Device Straight Cane 4 Wheeled Walker PT-OP-J Posture/Palpation/Skin Start: 07/20/18 12:35 Freq: Status: Active Protocol: Document 07/19/18 10:15 AMB (Rec: 07/20/18 12:39 AMB [email or web address]) Skin Assessment Edema Assessment Left Leg Edema Degree 1+ Comments From knee into foot PT-OP-K Range of Motion Start: 07/19/18 07:53 Freq: Status: Active Protocol: Document 09/14/18 10:30 AMB (Rec: 09/14/18 11:04 AMB [id number]) Knee Goniometric Range of Motion Knee Measured in Degrees Right Flexion Active (degrees) 122 Flexion Passive (degrees) 130 Extension Active (degrees) 4 PT-OP-M Strength Start: 07/19/18 07:53 Freq: Status: Active Protocol: Document 09/14/18 10:30 AMB (Rec: 09/14/18 11:59 AMB [email or web address]) Knee Strength Knee Manual Muscle Testing Right Flexion (S2) 4+ Good+ Extension (L3) 4+ Good+ Ankle/Foot Strength Ankle and Foot Manual Muscle Testing Right Dorsiflexion (L4) 4+ Good+ Plantarflexion (S1) 4+ Good+ PT-OP-Q Treatments Start: 07/19/18 07:53 Freq: Status: Active Protocol: Document 10/11/18 11:15 AMB (Rec: 10/12/18 15:08 AMB [email or web address]) Therapeutic Exercises Supine Exercises 4 Supine Exercise Name quad stretch Reps/Minutes 30x2 2 Supine Exercise Name calf stretch Reps/Minutes 30x2 Comments on MIKE Standing Exercises 9 Standing Exercise Name walking lunges Comments with trunk rotation, no UE support 7 Standing Exercise Name BOSU ball balance Comments needs UE support 4 Standing Exercise Name heel raises Reps/Minutes 2x10 Comments unilateral 2 Standing Exercise Name lunges without UE support Reps/Minutes fwd, side, diagonal Comments 3x5, added high march single leg stance Manual Therapy Treatment Manual Techniques 1 Type PROM with OP Comments flexion and extension PT-OP-R Modalities Start: 07/19/18 07:53 Freq: Status: Active Protocol: Document 10/11/18 11:15 AMB (Rec: 10/12/18 15:08 AMB [email or web address]) Hot Pack/Cold Pack Treatment Cold Pack Location knee Patient Position Hooklying Treatment Duration (minutes) 10 PT-OP-T Assessment and Plan Start: 07/19/18 07:53 Freq: Status: Active Protocol: Document 10/11/18 11:15 AMB (Rec: 10/12/18 15:08 AMB [email or web address]) Physical Therapy Assessment Assessment Summary Assessment Pt is getting much more confident with her dynamic balance, gait. Fatigue continues with higher level strengthening. Physical Therapy Plan Next Visit Focus/Plan Next Note Type Treatment Note Next Visit Plan Maximize ROM, continue to progress dynamic balance, gait without assistive device
--- NOTE | 2018-10-12 15:08 | PT.OTN ---
Current Diagnoses Displaced bicondylar fracture of right tibia, initial encounter for closed fracture (10/11/18) Physical Therapy Treatment Note PT-OP-A Visit Information Start: 07/19/18 07:53 Freq: Status: Active Protocol: Document 10/11/18 11:15 AMB (Rec: 10/11/18 11:26 AMB [id number]) Out-Patient Physical Therapy Visit Information Visit Information Visit Type Treatment Note Visit Note G code 05/12 Visit Start Time 11:15 Visit Stop Time 12:10 Total Visit Minutes 55 Visit Number 24 PT-OP-B Current Condition Start: 07/19/18 07:53 Freq: Status: Active Protocol: Document 07/19/18 10:15 AMB (Rec: 07/20/18 07:30 AMB [email or web address]) Current Condition History of Current Condition Onset Date 04/27/18 Current Complaints Difficulty walking, bending the knee, standing History of Current Condition The patient fell off a retaining wall in April while gardening. She had an ORIF for right lateral tibial plateau fracture. She has been cleared for WBAT as of . She has previously completed home health physical therapy. She lives in a 2 story home with 4 steps to enter (1 railing) with her who has his own mobility deficits and uses a motorized scooter in the community. She is currently using a FWW both in the home and the community. Prior Treatments and Tests Prior home health Treatment Goals Patient/Caregiver Goals Lift 35# into the car to get 's scooter into the trunk. Return to walking around [facility] (2 miles, hilly, without assistive device). Prior Functional Status Baseline Function- ADL's Independent Baseline Function- Mobility Independent Baseline Function- Gait Community ambulator without assistive device Baseline Function- Recreation/Hobbies Gardening Current Functional Impairments (Reported) Functional Limitations- ADL's Ambulates with FWW, has friends bring over meals, Functional Limitations- Mobility/Gait Can't carry anything up or down stairs, must use rail Personal Factors Other Personal Factors That May Effect History of breast cancer 1 Therapy/Recovery year ago, caregiver for her PT-OP-C Subjective Start: 07/19/18 07:53 Freq: Status: Active Protocol: Document 10/11/18 11:15 AMB (Rec: 10/11/18 11:26 AMB [id number]) OP-PT Subjective Patient Comments Patient Comments Walking 1 hour at [facility] without AD. Walked [place]orje Wiley without AD for 1.5 miles. PT-OP-D Balance Start: 07/19/18 07:53 Freq: Status: Active Protocol: Document 09/14/18 10:30 AMB (Rec: 09/14/18 11:59 AMB [email or web address]) OP-PT Balance Assessment Standing Balance Standing Balance Comments Standing balance (single leg stance) 10 seconds + Renteria Fall Scale Copyright Permission Myra JM, Myra RM, Sonja SJ. Development of a scale to identify the fall- prone patient. Can J Aging 1989;8;366-7. Vernon Renteria (2009). Preventing patient falls. (2nd ed). [place]: [place]. PT-OP-G Mobility & Gait Start: 07/19/18 07:53 Freq: Status: Active Protocol: Document 09/14/18 10:30 AMB (Rec: 09/14/18 11:59 AMB [email or web address]) OP Gait Assessment Gait Gait Assistance Required: Independent Assistive Devices Assistive Device Straight Cane 4 Wheeled Walker PT-OP-J Posture/Palpation/Skin Start: 07/20/18 12:35 Freq: Status: Active Protocol: Document 07/19/18 10:15 AMB (Rec: 07/20/18 12:39 AMB [email or web address]) Skin Assessment Edema Assessment Left Leg Edema Degree 1+ Comments From knee into foot PT-OP-K Range of Motion Start: 07/19/18 07:53 Freq: Status: Active Protocol: Document 09/14/18 10:30 AMB (Rec: 09/14/18 11:04 AMB [id number]) Knee Goniometric Range of Motion Knee Measured in Degrees Right Flexion Active (degrees) 122 Flexion Passive (degrees) 130 Extension Active (degrees) 4 PT-OP-M Strength Start: 07/19/18 07:53 Freq: Status: Active Protocol: Document 09/14/18 10:30 AMB (Rec: 09/14/18 11:59 AMB [email or web address]) Knee Strength Knee Manual Muscle Testing Right Flexion (S2) 4+ Good+ Extension (L3) 4+ Good+ Ankle/Foot Strength Ankle and Foot Manual Muscle Testing Right Dorsiflexion (L4) 4+ Good+ Plantarflexion (S1) 4+ Good+ PT-OP-Q Treatments Start: 07/19/18 07:53 Freq: Status: Active Protocol: Document 10/12/18 11:15 AMB (Rec: 10/12/18 15:08 AMB [email or web address]) Therapeutic Exercises Supine Exercises 4 Supine Exercise Name quad stretch Reps/Minutes 30x2 2 Supine Exercise Name calf stretch Reps/Minutes 30x2 Comments on MIKE Standing Exercises 9 Standing Exercise Name walking lunges Comments with trunk rotation, no UE support 7 Standing Exercise Name BOSU ball balance Comments needs UE support 4 Standing Exercise Name heel raises Reps/Minutes 2x10 Comments unilateral 2 Standing Exercise Name lunges without UE support Reps/Minutes fwd, side, diagonal Comments 3x5, added high march single leg stance Manual Therapy Treatment Manual Techniques 1 Type PROM with OP Comments flexion and extension PT-OP-R Modalities Start: 07/19/18 07:53 Freq: Status: Active Protocol: Document 10/12/18 11:15 AMB (Rec: 10/12/18 15:08 AMB [email or web address]) Hot Pack/Cold Pack Treatment Cold Pack Location knee Patient Position Hooklying Treatment Duration (minutes) 10 PT-OP-T Assessment and Plan Start: 07/19/18 07:53 Freq: Status: Active Protocol: Document 10/12/18 11:15 AMB (Rec: 10/12/18 15:08 AMB [email or web address]) Physical Therapy Assessment Assessment Summary Assessment Pt is getting much more confident with her dynamic balance, gait. Fatigue continues with higher level strengthening. Physical Therapy Plan Next Visit Focus/Plan Next Note Type Treatment Note Next Visit Plan Maximize ROM, continue to progress dynamic balance, gait without assistive device
--- NOTE | 2018-10-18 15:55 | PT.OTN ---
Current Diagnoses Displaced bicondylar fracture of right tibia, initial encounter for closed fracture (10/18/18) Physical Therapy Treatment Note PT-OP-A Visit Information Start: 07/19/18 07:53 Freq: Status: Active Protocol: Document 10/18/18 11:15 AMB (Rec: 10/18/18 11:27 AMB [id number]) Out-Patient Physical Therapy Visit Information Visit Information Visit Type Treatment Note Visit Note G code 05/12 Visit Start Time 11:15 Visit Stop Time 12:10 Total Visit Minutes 55 Visit Number 25 PT-OP-B Current Condition Start: 07/19/18 07:53 Freq: Status: Active Protocol: Document 07/19/18 10:15 AMB (Rec: 07/20/18 07:30 AMB [email or web address]) Current Condition History of Current Condition Onset Date 04/27/18 Current Complaints Difficulty walking, bending the knee, standing History of Current Condition The patient fell off a retaining wall in April while gardening. She had an ORIF for right lateral tibial plateau fracture. She has been cleared for WBAT as of . She has previously completed home health physical therapy. She lives in a 2 story home with 4 steps to enter (1 railing) with her who has his own mobility deficits and uses a motorized scooter in the community. She is currently using a FWW both in the home and the community. Prior Treatments and Tests Prior home health Treatment Goals Patient/Caregiver Goals Lift 35# into the car to get 's scooter into the trunk. Return to walking around [facility] (2 miles, hilly, without assistive device). Prior Functional Status Baseline Function- ADL's Independent Baseline Function- Mobility Independent Baseline Function- Gait Community ambulator without assistive device Baseline Function- Recreation/Hobbies Gardening Current Functional Impairments (Reported) Functional Limitations- ADL's Ambulates with FWW, has friends bring over meals, Functional Limitations- Mobility/Gait Can't carry anything up or down stairs, must use rail Personal Factors Other Personal Factors That May Effect History of breast cancer 1 Therapy/Recovery year ago, caregiver for her PT-OP-C Subjective Start: 07/19/18 07:53 Freq: Status: Active Protocol: Document 10/18/18 11:15 AMB (Rec: 10/18/18 11:27 AMB [id number]) OP-PT Subjective Patient Comments Patient Comments Comes to PT without SPC. Knee does feel sore at the end of the day. PT-OP-D Balance Start: 07/19/18 07:53 Freq: Status: Active Protocol: Document 09/14/18 10:30 AMB (Rec: 09/14/18 11:59 AMB [email or web address]) OP-PT Balance Assessment Standing Balance Standing Balance Comments Standing balance (single leg stance) 10 seconds + Renteria Fall Scale Copyright Permission Myra JM, Myra RM, Sonja SJ. Development of a scale to identify the fall- prone patient. Can J Aging 1989;8;366-7. [place] Renteria (2009). Preventing patient falls. (2nd ed). [place]: [place]. PT-OP-G Mobility & Gait Start: 07/19/18 07:53 Freq: Status: Active Protocol: Document 09/14/18 10:30 AMB (Rec: 09/14/18 11:59 AMB [email or web address]) OP Gait Assessment Gait Gait Assistance Required: Independent Assistive Devices Assistive Device Straight Cane 4 Wheeled Walker PT-OP-J Posture/Palpation/Skin Start: 07/20/18 12:35 Freq: Status: Active Protocol: Document 07/19/18 10:15 AMB (Rec: 07/20/18 12:39 AMB [email or web address]) Skin Assessment Edema Assessment Left Leg Edema Degree 1+ Comments From knee into foot PT-OP-K Range of Motion Start: 07/19/18 07:53 Freq: Status: Active Protocol: Document 09/14/18 10:30 AMB (Rec: 09/14/18 11:04 AMB [id number]) Knee Goniometric Range of Motion Knee Measured in Degrees Right Flexion Active (degrees) 122 Flexion Passive (degrees) 130 Extension Active (degrees) 4 PT-OP-M Strength Start: 07/19/18 07:53 Freq: Status: Active Protocol: Document 09/14/18 10:30 AMB (Rec: 09/14/18 11:59 AMB [email or web address]) Knee Strength Knee Manual Muscle Testing Right Flexion (S2) 4+ Good+ Extension (L3) 4+ Good+ Ankle/Foot Strength Ankle and Foot Manual Muscle Testing Right Dorsiflexion (L4) 4+ Good+ Plantarflexion (S1) 4+ Good+ PT-OP-Q Treatments Start: 07/19/18 07:53 Freq: Status: Active Protocol: Document 10/18/18 11:15 AMB (Rec: 10/18/18 15:55 AMB [email or web address]) Cardio Equipment Bicycle (Upright) Duration (Minutes) 7 Resistance 12 Seat Position 2 Gym Equipment Shuttle Balance 1 Details RED Comments a/p, m/l weightshifting Therapeutic Exercises Supine Exercises 2 Supine Exercise Name calf stretch Reps/Minutes 30x2 Comments on MIKE Standing Exercises 9 Standing Exercise Name walking lunges Comments with trunk rotation, no UE support 8 Standing Exercise Name single leg squat Reps/Minutes 2x10 Comments toe touch down for balance 7 Standing Exercise Name BOSU ball balance Comments needs UE support 2 Standing Exercise Name lunges without UE support Reps/Minutes fwd, side, diagonal Comments 3x5, added high march single leg stance Manual Therapy Treatment Manual Techniques 1 Type PROM with OP Comments flexion and extension PT-OP-R Modalities Start: 07/19/18 07:53 Freq: Status: Active Protocol: Document 10/18/18 11:15 AMB (Rec: 10/18/18 15:55 AMB [email or web address]) Hot Pack/Cold Pack Treatment Cold Pack Location knee Patient Position Hooklying Treatment Duration (minutes) 10 PT-OP-T Assessment and Plan Start: 07/19/18 07:53 Freq: Status: Active Protocol: Document 10/18/18 11:15 AMB (Rec: 10/18/18 13:01 AMB [email or web address]) Physical Therapy Assessment Assessment Summary Assessment The patient is continuing to improve. Physical Therapy Plan Next Visit Focus/Plan Next Note Type Treatment Note Next Visit Plan Maximize ROM, continue to progress dynamic balance, gait without assistive device
--- NOTE | 2018-10-25 12:48 | PT.OTN ---
Current Diagnoses Displaced bicondylar fracture of right tibia, initial encounter for closed fracture (10/25/18) Physical Therapy Treatment Note PT-OP-A Visit Information Start: 07/19/18 07:53 Freq: Status: Active Protocol: Document 10/25/18 11:15 AMB (Rec: 10/25/18 11:26 AMB [id number]) Out-Patient Physical Therapy Visit Information Visit Information Visit Type Treatment Note Visit Note G code 06/12 Visit Start Time 11:15 Visit Stop Time 12:10 Total Visit Minutes 55 Visit Number 26 PT-OP-B Current Condition Start: 07/19/18 07:53 Freq: Status: Active Protocol: Document 07/19/18 10:15 AMB (Rec: 07/20/18 07:30 AMB [email or web address]) Current Condition History of Current Condition Onset Date 04/27/18 Current Complaints Difficulty walking, bending the knee, standing History of Current Condition The patient fell off a retaining wall in April while gardening. She had an ORIF for right lateral tibial plateau fracture. She has been cleared for WBAT as of . She has previously completed home health physical therapy. She lives in a 2 story home with 4 steps to enter (1 railing) with her who has his own mobility deficits and uses a motorized scooter in the community. She is currently using a FWW both in the home and the community. Prior Treatments and Tests Prior home health Treatment Goals Patient/Caregiver Goals Lift 35# into the car to get 's scooter into the trunk. Return to walking around [facility] (2 miles, hilly, without assistive device). Prior Functional Status Baseline Function- ADL's Independent Baseline Function- Mobility Independent Baseline Function- Gait Community ambulator without assistive device Baseline Function- Recreation/Hobbies Gardening Current Functional Impairments (Reported) Functional Limitations- ADL's Ambulates with FWW, has friends bring over meals, Functional Limitations- Mobility/Gait Can't carry anything up or down stairs, must use rail Personal Factors Other Personal Factors That May Effect History of breast cancer 1 Therapy/Recovery year ago, caregiver for her PT-OP-C Subjective Start: 07/19/18 07:53 Freq: Status: Active Protocol: Document 10/25/18 11:15 AMB (Rec: 10/25/18 11:26 AMB [id number]) OP-PT Subjective Patient Comments Patient Comments Progress note vs d/c next visit. Pt is hoping to walk [place]. PT-OP-D Balance Start: 07/19/18 07:53 Freq: Status: Active Protocol: Document 09/14/18 10:30 AMB (Rec: 09/14/18 11:59 AMB [email or web address]) OP-PT Balance Assessment Standing Balance Standing Balance Comments Standing balance (single leg stance) 10 seconds + Renteria Fall Scale Copyright Permission Myra JM, Myra RM, Sonja SJ. Development of a scale to identify the fall- prone patient. Can J Aging 1989;8;366-7. [place] Renteria (2009). Preventing patient falls. (2nd ed). [place]: [place]. PT-OP-G Mobility & Gait Start: 07/19/18 07:53 Freq: Status: Active Protocol: Document 09/14/18 10:30 AMB (Rec: 09/14/18 11:59 AMB [email or web address]) OP Gait Assessment Gait Gait Assistance Required: Independent Assistive Devices Assistive Device Straight Cane 4 Wheeled Walker PT-OP-J Posture/Palpation/Skin Start: 07/20/18 12:35 Freq: Status: Active Protocol: Document 07/19/18 10:15 AMB (Rec: 07/20/18 12:39 AMB [email or web address]) Skin Assessment Edema Assessment Left Leg Edema Degree 1+ Comments From knee into foot PT-OP-K Range of Motion Start: 07/19/18 07:53 Freq: Status: Active Protocol: Document 09/14/18 10:30 AMB (Rec: 09/14/18 11:04 AMB [id number]) Knee Goniometric Range of Motion Knee Measured in Degrees Right Flexion Active (degrees) 122 Flexion Passive (degrees) 130 Extension Active (degrees) 4 PT-OP-M Strength Start: 07/19/18 07:53 Freq: Status: Active Protocol: Document 09/14/18 10:30 AMB (Rec: 09/14/18 11:59 AMB [email or web address]) Knee Strength Knee Manual Muscle Testing Right Flexion (S2) 4+ Good+ Extension (L3) 4+ Good+ Ankle/Foot Strength Ankle and Foot Manual Muscle Testing Right Dorsiflexion (L4) 4+ Good+ Plantarflexion (S1) 4+ Good+ PT-OP-Q Treatments Start: 07/19/18 07:53 Freq: Status: Active Protocol: Document 10/25/18 11:15 AMB (Rec: 10/25/18 12:48 AMB [email or web address]) Cardio Equipment Bicycle (Upright) Duration (Minutes) 7 Resistance 12 Seat Position 2 Gym Equipment Shuttle Recovery Unilateral Heel Raises Resistance 50 Shuttle Recovery Platform Stable Reps/Time 2 min Unilateral Squats Resistance 75 Shuttle Recovery Platform Unstable Reps/Time 3 min Therapeutic Exercises Supine Exercises 4 Supine Exercise Name quad stretch Reps/Minutes 30x2 2 Supine Exercise Name calf stretch Reps/Minutes 30x2 Comments on MIKE Standing Exercises 7 Standing Exercise Name BOSU ball balance Comments needs UE support 4 Standing Exercise Name heel raises Reps/Minutes 2x10 Comments unilateral Manual Therapy Treatment Manual Techniques 1 Type PROM with OP Comments flexion and extension PT-OP-R Modalities Start: 07/19/18 07:53 Freq: Status: Active Protocol: Document 10/25/18 11:15 AMB (Rec: 10/25/18 12:48 AMB [email or web address]) Hot Pack/Cold Pack Treatment Cold Pack Location knee Patient Position Hooklying Treatment Duration (minutes) 10 PT-OP-T Assessment and Plan Start: 07/19/18 07:53 Freq: Status: Active Protocol: Document 10/25/18 11:15 AMB (Rec: 10/25/18 12:48 AMB [email or web address]) Physical Therapy Assessment Assessment Summary Assessment Possible d/c next visit, pt continuing to lack full extension and missing 5 degrees of flexion in comparsion to other side. She is hoping to [place] over the next [place]. Physical Therapy Plan Next Visit Focus/Plan Next Note Type Discharge Summary Next Visit Plan Maximize ROM, continue to progress dynamic balance, gait without assistive device
--- NOTE | 2018-11-01 15:56 | PT.OTN ---
Current Diagnoses Displaced bicondylar fracture of right tibia, initial encounter for closed fracture (11/01/18) Physical Therapy Treatment Note PT-OP-A Visit Information Start: 07/19/18 07:53 Freq: Status: Active Protocol: Document 11/01/18 13:00 AMB (Rec: 11/01/18 13:38 AMB [id number]) Out-Patient Physical Therapy Visit Information Visit Information Visit Type Discharge Summary Visit Note G code 06/12 Visit Start Time 11:15 Visit Stop Time 12:10 Total Visit Minutes 55 Visit Number 27 PT-OP-B Current Condition Start: 07/19/18 07:53 Freq: Status: Active Protocol: Document 07/19/18 10:15 AMB (Rec: 07/20/18 07:30 AMB [email or web address]) Current Condition History of Current Condition Onset Date 04/27/18 Current Complaints Difficulty walking, bending the knee, standing History of Current Condition The patient fell off a retaining wall in April while gardening. She had an ORIF for right lateral tibial plateau fracture. She has been cleared for WBAT as of . She has previously completed home health physical therapy. She lives in a 2 story home with 4 steps to enter (1 railing) with her who has his own mobility deficits and uses a motorized scooter in the community. She is currently using a FWW both in the home and the community. Prior Treatments and Tests Prior home health Treatment Goals Patient/Caregiver Goals Lift 35# into the car to get 's scooter into the trunk. Return to walking around [facility] (2 miles, hilly, without assistive device). Prior Functional Status Baseline Function- ADL's Independent Baseline Function- Mobility Independent Baseline Function- Gait Community ambulator without assistive device Baseline Function- Recreation/Hobbies Gardening Current Functional Impairments (Reported) Functional Limitations- ADL's Ambulates with FWW, has friends bring over meals, Functional Limitations- Mobility/Gait Can't carry anything up or down stairs, must use rail Personal Factors Other Personal Factors That May Effect History of breast cancer 1 Therapy/Recovery year ago, caregiver for her PT-OP-C Subjective Start: 07/19/18 07:53 Freq: Status: Active Protocol: Document 11/01/18 13:00 AMB (Rec: 11/01/18 13:38 AMB [id number]) OP-PT Subjective Patient Comments Patient Comments Pt has been walking up [place] every day. She is noticing R knee soreness with going downhill, but it resolves when she walks on flat surfacess. Patient Questionnaires Oswestry Low Back Index Oswestry Score 58 Oswestry Impairment 40 to 59% Impaired (Score 40- 59) PT-OP-D Balance Start: 07/19/18 07:53 Freq: Status: Active Protocol: Document 11/01/18 14:23 AMB (Rec: 11/01/18 14:25 AMB [email or web address]) Balance Tests Single Limb Standing Single Limb- Right 8 sec Single Limb- Left 15 sec PT-OP-G Mobility & Gait Start: 07/19/18 07:53 Freq: Status: Active Protocol: Document 11/01/18 11:15 AMB (Rec: 11/01/18 15:55 AMB [email or web address]) OP Gait Assessment Gait Gait Assistance Required: Independent Assistive Devices Assistive Device None PT-OP-J Posture/Palpation/Skin Start: 07/20/18 12:35 Freq: Status: Active Protocol: Document 07/19/18 10:15 AMB (Rec: 07/20/18 12:39 AMB [email or web address]) Skin Assessment Edema Assessment Left Leg Edema Degree 1+ Comments From knee into foot PT-OP-K Range of Motion Start: 07/19/18 07:53 Freq: Status: Active Protocol: Document 11/01/18 14:23 AMB (Rec: 11/01/18 14:25 AMB [email or web address]) Knee Goniometric Range of Motion Knee Measured in Degrees Right Flexion Active (degrees) 124 Flexion Passive (degrees) 133 Extension Passive (degrees) 3 PT-OP-M Strength Start: 07/19/18 07:53 Freq: Status: Active Protocol: Document 11/01/18 11:15 AMB (Rec: 11/01/18 14:19 AMB [email or web address]) Knee Strength Knee Manual Muscle Testing Right Flexion (S2) 4+ Good+ Extension (L3) 4+ Good+ Left Flexion (S2) 5 Normal Extension (L3) 5 Normal Ankle/Foot Strength Ankle and Foot Manual Muscle Testing Right Dorsiflexion (L4) 4+ Good+ Plantarflexion (S1) 4+ Good+ Left Dorsiflexion (L4) 5 Normal Plantarflexion (S1) 5 Normal PT-OP-Q Treatments Start: 07/19/18 07:53 Freq: Status: Active Protocol: Document 11/01/18 11:15 AMB (Rec: 11/01/18 15:53 AMB [email or web address]) Therapeutic Exercises Supine Exercises 4 Supine Exercise Name quad stretch Reps/Minutes 30x2 2 Supine Exercise Name calf stretch Reps/Minutes 30x2 Comments on MIKE Standing Exercises 9 Standing Exercise Name walking lunges Comments with trunk rotation, no UE support 4 Standing Exercise Name heel raises Reps/Minutes 2x10 Comments unilateral Manual Therapy Treatment Soft Tissue Mobilization 1 Body Location R tibialis anterior Mobilization Type Rolling Intensity/Depth Moderate Body Position Supine PT-OP-R Modalities Start: 07/19/18 07:53 Freq: Status: Active Protocol: Document 11/01/18 11:15 AMB (Rec: 11/01/18 14:28 AMB [email or web address]) Hot Pack/Cold Pack Treatment Cold Pack Location knee Patient Position Hooklying Treatment Duration (minutes) 10 PT-OP-T Assessment and Plan Start: 07/19/18 07:53 Freq: Status: Active Protocol: Document 11/01/18 11:15 AMB (Rec: 11/01/18 15:53 AMB [email or web address]) Physical Therapy Assessment Goals Three Impairment Strength Short Term Goal (STG) The patient will improve her LE strength so that she can safely ascend and descend a flight of stairs without needing a railing. STG Duration MET Prison Goal (LTG) The patient will improve her LE strength so that she can perform a full squat to lift 35# from the floor to waist level with good body mechanics . LTG Duration MET Two Impairment Range of motion Short Term Goal (STG) The patient will improve her active knee flexion to 120 degrees. STG Duration MET One Impairment Gait Short Term Goal (STG) The patient will ambulate with a SPC for 10 minutes with 1/ 10 knee pain or less. STG Duration MET Prison Goal (LTG) The patient will ambulate without an assistive device for 30 minutes without an increase in baseline pain. LTG Duration MET Assessment Summary Assessment Pt has returned to walking [place] without an assistive device. She is going slower than before her fracture, but otherwise is doing well. She did have some tibialis anterior pain, most likely from returning to walking the loop quickly. She was instructed to continue working on her extension range of motion, single leg stance time, and to work on her tibialis anterior soreness with rolling and ice. Overall goals are met and she is ready to be discharged. Physical Therapy Plan Discharge Physical Therapy Discharge Reasons Goals Met Discharge Comments Pt confident she can continue to progress independently at this time
== END 2018-11-03 09:19 ==
LOC: PHYS 11:15
PROVIDERS: Family Provider Family Medicine; PCP Family Medicine; Visit Provider Orthopaedic Surgery
DX: S82.141A Displaced bicondylar fracture of right tibia, initial encounter for closed fracture (principal)
CPT/HCPCS: 97010; 97110; 97112; 97116; 97140; 97162; 97530

== ENCOUNTER → 2018-11-29 12:59 | Outpatient (CLI) | payer MEDICARE, OTHER, SELFPAY ==
[2018-11-29 13:24] LABS: Add Manual Diff / Slide Review NO; Basophils Absolute Auto 100 /uL (0-100); Basophils Percent Auto 1.1 % (0-2); Eosinophils Absolute Auto 100 /uL (0-450); Eosinophils Percent Auto 1.8 % (2-4); Hematocrit 42.9 % (36-46); Lymphocytes Absolute Auto 2100 /uL (1100-4500); Lymphocytes Percent Auto 31.8 % (25-40); Mean Corpuscular HGB Conc 32.6 % (30-36); Mean Corpuscular Hemoglobin 31.5 PG (26-34); Mean Corpuscular Volume 96.3 fL (80-100); Monocytes Absolute Auto 400 /uL (0-900); Monocytes Percent Auto 6.4 % (3-14); Neutrophils Absolute Auto 3800 /uL (1500-7000); Neutrophils Percent Auto 58.9 % (50-75); Platelet Count 242 X10^3/uL (150-400); Red Blood Cell Count 4.45 X10^6/uL (4.0-5.2); Red Cell Distribution Width 12.9 % (11.6-14.8); White Blood Cell Count 6.5 X10^3/uL (4.5-11.0)
[2018-11-29 13:54] LABS: Alanine Aminotransferase 27 IU/L (9-52); Albumin 4.5 g/dL (3.5-5.0); Albumin Globulin Ratio 1.6 (1.0-2.8); Alkaline Phosphatase 49 U/L (38-126); Aspartate Aminotransferase 26 IU/L (14-36); BUN Creatinine Ratio 28.6 (6-22); Bilirubin Total 0.3 mg/dL (0.2-1.3); Blood Urea Nitrogen 20 mg/dL (7-17); Calcium 9.6 mg/dL (8.4-10.2); Carbon Dioxide 29 mmol/L (22-32); Chloride 100 mmol/L (98-107); Estimated Glomerular Filt Rate > 60.0 mL/min (>60); Globulin 2.9 g/dL (1.7-4.1); Glucose 97 mg/dL (80-110); HEMOLYSIS < 15 (0-50); Potassium 4.3 mmol/L (3.4-5.1); Sodium 138 mmol/L (137-145); Total Protein 7.4 g/dL (6.3-8.2)
== END ==
PROVIDERS: Family Provider Family Medicine; PCP Family Medicine; Visit Provider Internal Medicine Hematology & Oncology
DX: C50.912 Malignant neoplasm of unspecified site of left female breast (principal); M85.80 Other specified disorders of bone density and structure, unspecified site; Z17.0 Estrogen receptor positive status [ER+]; Z79.811 Long term (current) use of aromatase inhibitors
CPT/HCPCS: 80053; 85025

== ENCOUNTER → 2019-01-24 10:48 | Outpatient (CLI) | payer MEDICARE, OTHER, SELFPAY ==
--- NOTE | 2019-01-24 | DI.MG.S_ITS ---
BILATERAL DIGITAL SCREENING MAMMOGRAM 3D/2D WITH CAD: 01/24/2019 CLINICAL: Routine screening. Personal history of bilateral breast cancer. Comparison is made to exams dated: 01/23/2018 mammogram, 03/30/2017 mammogram, and 03/30/2017 [facility]. The tissue of both breasts is heterogeneously dense. This may lower the sensitivity of mammography. Current study was also evaluated with a Computer Aided Detection (CAD) system. There are a benign area of fat necrosis and post operative findings in the right breast. There also are benign post operative findings in the left breast. Additionally, there is a benign biopsy clip in the left breast. No significant masses, calcifications, or other findings are seen in either breast. There has been no significant interval change. IMPRESSION: There is no mammographic evidence of malignancy. A 1 year screening mammogram is recommended. This exam was interpreted at Station ID: [id number]. NOTE: For mammograms, a report in lay terms will be sent to the patient. Approximately 15% of breast malignancies will not be visualized mammographically. In the management of a palpable breast mass, a negative mammogram must not discourage biopsy of a clinically suspicious lesion. Electronically Signed By: Arsi daly/brissa:01/24/2019 16:21:49 copy to: Alex Mcgregor letter sent: Normal Exam ACR BI-RADS Category 2: Benign Finding(s) 3342F
== END ==
PROVIDERS: Family Provider Internal Medicine Hematology & Oncology; PCP Family Medicine; Visit Provider Family Medicine
DX: Z12.31 Encounter for screening mammogram for malignant neoplasm of breast (principal); Z85.3 Personal history of malignant neoplasm of breast
CPT/HCPCS: 77063; 77067

== ENCOUNTER → 2020-04-10 14:38 | Outpatient (CLI) | payer MEDICARE, OTHER, SELFPAY ==
--- NOTE | 2020-04-10 14:42 | DI.MG.S_ITS ---
BILATERAL DIGITAL SCREENING MAMMOGRAM 3D/2D WITH CAD POST LUMPECTOMY: 04/10/2020 CLINICAL: Routine screening. Personal history of bilateral breast cancer. Comparison is made to exams dated: 01/24/2019 mammogram, 01/23/2018 mammogram, and 01/07/2017 mammogram - [facility]. The tissue of both breasts is heterogeneously dense. This may lower the sensitivity of mammography. Current study was also evaluated with a Computer Aided Detection (CAD) system. There is a benign area of fat necrosis in the right breast. There also are benign post operative findings in the right breast. Additionally, there are benign post operative findings and biopsy clip in the left breast. No significant masses, calcifications, or other findings are seen in either breast. There has been no significant interval change. IMPRESSION: There is no mammographic evidence of malignancy. A 1 year screening mammogram is recommended. This exam was interpreted at Station ID: [id number]. NOTE: For mammograms, a report in lay terms will be sent to the patient. Approximately 15% of breast malignancies will not be visualized mammographically. In the management of a palpable breast mass, a negative mammogram must not discourage biopsy of a clinically suspicious lesion. Electronically Signed By: Alden carballo/brissa:04/10/2020 17:21:47 copy to: Alex Mcgregor letter sent: Normal Exam ACR BI-RADS Category 2: Benign Finding(s) 3342F
--- NOTE | 2020-04-10 14:42 | DI.RAD.S_ITS ---
This blank DEXA report has been sent in error by the PACS system. The correct and complete report will be forthcoming in 1-2 days. Thank you for your patience and understanding. Dictated by: Rossy Bradford MD, PhD on 04/10/2020 at 15:50 Approved by: Rossy Bradford MD, PhD on 04/10/2020 at 15:50
== END ==
PROVIDERS: Family Provider Family Medicine; PCP Family Medicine; Referring Provider Family Medicine; Visit Provider Internal Medicine Hematology & Oncology
DX: Z12.31 Encounter for screening mammogram for malignant neoplasm of breast (principal); M81.0 Age-related osteoporosis without current pathological fracture; Z78.0 Asymptomatic menopausal state; C50.911 Malignant neoplasm of unspecified site of right female breast; C50.912 Malignant neoplasm of unspecified site of left female breast; E07.9 Disorder of thyroid, unspecified; Z82.62 Family history of osteoporosis
CPT/HCPCS: 77063; 77067; 77080

== ENCOUNTER → 2021-04-08 09:23 | Outpatient (CLI) | payer MEDICARE, OTHER, SELFPAY ==
[2021-04-08 11:52] LABS: COVID19 -Nasal RAPID Negative (Negative)
== END ==
PROVIDERS: PCP Family Medicine; Visit Provider Physician Assistant
DX: Z01.812 Encounter for preprocedural laboratory examination (principal); Z20.822 Contact with and (suspected) exposure to COVID-19
CPT/HCPCS: 87635; C9803

== ENCOUNTER 2021-04-10 14:07 | Day surgery (SDC) | payer MEDICARE, OTHER, SELFPAY ==
[2021-04-10] VITALS (7 sets, daily range): BP systolic 113–127; BP diastolic 59–75; PULSE 44–67; RESP 12–16; TEMP 36.3–37.2; O2SAT 97–99; BMI 22.6
--- NOTE | 2021-04-10 12:13 | P.HP_ITS ---
History of Present Illness History of Present Illness Date Patient Seen: 04/10/21 Chief complaint: SCREENING COLONOSCOPY Narrative: 71 year old female comes in today for consideration of a screening colonoscopy. Last colonoscopy 07/20/2010, 10 year recall. There have been no lower GI symptoms suggesting disease such as change in bowel habits, bleeding, abdominal pain or anemia. There's been no family history of colon cancer or colon polyps. Overall health issues have been stable, including no major cardiac events for at least 6 weeks. PCP: Dr. Coughlin Past medical history: Hypothyroidism Ductal carcinoma in-situ, right breast Squamous carcinoma, leg Osteoporosis Allergic rhinitis Diverticulitis Past surgical history: Colon resection, 01/2000, 04/2000 Right breast lumpectomy, 01/2010 Hysteroscopy and D&C for endometrial hyperplasia and uterine polyp Family history: No colon cancer or Shecolon polyps Social history: to [place], retired. Patient History Medical History (Updated 04/10/21 @ 14:59 by Keagan Saxena RN) Allergic rhinitis Breast cancer Hypothyroidism Osteoporosis Squamous cell carcinoma Tibial plateau fracture, right Surgical History (Updated 04/10/21 @ 14:31 by Keagan Saxena RN) History of colon resection History of lumpectomy of both breasts Status post colostomy takedown Status post surgery (06/08/13) Family & Social History Tobacco & Substance use: Smoking Status Never smoker alcohol intake never alcohol intake frequency 0-2 drinks per day Substance Use Type does not use Meds Home Medications and Allergies Home Medications Medication Instructions Recorded Confirmed Type CALCIUM CARBONATE 1,000 mg PO QDAY #0 05/08/13 04/10/21 History Fish Oil (Fish Oil 500 MG Softgel) 1,000 mg PO Q DAY #0 05/08/13 04/10/21 History VITAMIN D (Vitamin D3) 1,000 unit PO QDAY #0 05/08/13 04/10/21 History [TURKEY TAIL] 1 cap PO Q DAY #0 04/14/17 04/10/21 History [TUMERIC] 1 cap PO BID #0 09/02/17 05/29/20 History ascorbic acid 125 mg-collagen, 1 cap PO DAILY 05/21/19 04/10/21 History hydrolyzed 740 mg capsule (Collagen Plus Vitamin C) biotin 1,000 mcg chewable tablet 1,000 mcg PO DAILY 05/21/19 04/10/21 History levothyroxine 50 mcg tablet 50 mcg DAILY 05/29/20 04/10/21 History letrozole 2.5 mg tablet 2.5 mg PO DAILY #90 tab 12/10/20 04/10/21 Rx cyanocobalamin (vitamin B-12) 2,500 mcg PO DAILY 04/10/21 04/10/21 History 2,500 mcg tablet denosumab 60 mg/mL subcutaneous 60 mg SUBCUT [id number] 04/10/21 04/10/21 History syringe (Prolia) Allergies Allergy/AdvReac Type Severity Reaction Status Date / Time adhesive Allergy Mild SENSITIVE Verified 04/26/18 18:39 cephalexin Allergy Mild RASH Verified 04/26/18 18:39 erythromycin base Allergy Mild RASH Verified 04/26/18 18:39 naproxen Allergy Mild RASH Verified 04/26/18 18:39 Penicillins Allergy Mild RASH Verified 04/26/18 18:39 Sulfa (Sulfonamide Allergy Mild RASH Verified 04/26/18 18:39 Antibiotics) morphine AdvReac Mild N/V Verified 04/26/18 18:39 LOBSTER Allergy Vomiting Uncoded 04/10/21 14:45 Review of Systems Review of Systems Narrative: See HPI. Exam Narrative Exam Narrative: GENERAL: Alert and oriented, appearing stated age and in no acute distress. HEENT: Head normocephalic/atraumatic. LUNGS: Clear to ausculation bilaterally, no wheezes, rhonchi or rales. CV: Normal S1 and S2 with regular rate and rhythm, no audible murmurs, rubs or gallops. ABDOMEN: Soft, non-tender, non-distended, no organomegaly. Positive bowel sounds. EXTREMITIES: No clubbing, cyanosis, or edema. NEURO: Cranial nerves II through XII grossly intact, no focal deficits. PSYCH: Alert and oriented x 3. SKIN: No concerning lesions. Assessment & Plan Assessment & Plan narrative: 1. Screening for colon cancer Plan for colonoscopy. The nature and character of the procedure as well as anticipated results were discussed. The possibility of not completing the procedure was also discussed. Possible complications including aspiration pneumonia, bleeding, perforation and reaction to medications either for sedation or preparation and missed lesions were discussed. Questions were answered and proceeding to the colonoscopy was elected. Informed consent signed. I sincerely appreciate the referral allowing me to participate in this patient's care. Please contact me with any questions or concerns.
--- NOTE | 2021-04-10 12:20 | PM.OP.ENDO ---
Operative Date/Time/Diagnoses Date of procedure: 04/10/21 Procedure Notes SCOAP/Timeout: 3:15 p.m. Procedure in detail: ENDOSCOPIST: Ann Rodriguez MD Sedation RN: Mino Abdalla RN Sedation start time: 3:17 p.m. Sedation end time: 3:29 p.m. PROCEDURE: Colonoscopy INDICATIONS: 1. Screening for colon cancer MEDICATION: Levsin 0.125 mg sublingual, incremental doses of Versed and fentanyl until appropriate level sedation achieved. ASA CLASS: 2 CECAL WITHDRAWAL TIME: 11 minutes COMPLICATIONS: None. EXTENT OF PROCEDURE: Cecum. QUALITY OF PREP: Good with portions of liquid stool. PROCEDURE: Prior to insertion of the colonoscope, a digital rectal examination was accomplished with circumferential palpation of the distal rectal mucosa without significant findings being noted. The high-definition pediatric colonoscope was passed into the rectum in the usual fashion and advanced over to the cecum with some difficulty due to tortuosity and scarring at the site of the previous colonic anastomoses. The ileocecal valve, appendiceal stoma, and medial wall all could be inspected and no abnormalities were seen. ASCENDING COLON: As the colonoscope was withdrawn, care was taken to expose and inspect the haustral folds and pancolonic diverticulosis was seen throughout withdrawal, left greater right. HEPATIC FLEXURE: Minor diverticulosis, otherwise normal, no polyps, or other abnormalities. TRANSVERSE COLON: Minor diverticulosis otherwise, normal, no polyps, or other abnormalities. DESCENDING/SIGMOID COLON: Anastomoses noted at 40 cm, well-healed. Moderate to severe diverticulosis disease. No polyps. RECTUM: Normal. J maneuver was produced. There was no significant perianal disease. The J maneuver was broken. The remainder of the rectum was inspected and there was no external hemorrhoid disease. The scope was withdrawn. IMPRESSION: 1. Normal colonoscopy 2. Pancolonic diverticulosis 3. Anastomosis at 40 cm, well-healed. PLAN: 1. Secondary to patient's age, this can be her last colonoscopy. The possibility of a missed lesion including a malignancy has been discussed with the patient previously. Potential alarm symptoms have been discussed and should be reported immediately.
[2021-04-10] MEDS: LACTATED RINGERS 1,000 ML 200 ML IV (14:28)
[2021-04-10] MEDS: HYOSCYAMINE 0.125 MG TABLET PO (14:28)
[2021-04-10] MEDS: MIDAZOLAM 5 MG/5 ML VIAL IV (15:43)
[2021-04-10] MEDS: fentaNYL 250 MCG/5 ML INJ IV (15:44)
--- NOTE | 2021-04-10 16:40 | SUR.PHASEII ---
All PACU care and charting done by Aysha Boggs RN. (some charting under login of Betsey Beyer RN) Pt with HR 44 after arrival to PACU phase II. Pt denied symptoms, given a cup of coffee and HR up to 58-60. Patient stood at bedside, steady on her feet. DC via wheelchair to friend.
== END 2021-04-10 16:35 | disposition home or self-care (01) ==
PROVIDERS: PCP Family Medicine; Referring Provider Student in an Organized Health Care Education/Training Program; Visit Provider Student in an Organized Health Care Education/Training Program
PROC: 0DJD8ZZ Inspection of Lower Intestinal Tract, Via Natural or Artificial Opening Endoscopic (ICD-10-PCS; CPT 45378; principal; 2021-04-10 15:15)
DX: Z12.11 Encounter for screening for malignant neoplasm of colon (principal); E03.9 Hypothyroidism, unspecified; K57.30 Diverticulosis of large intestine without perforation or abscess without bleeding
CPT/HCPCS: G0121; J2250; J3010

== ENCOUNTER → 2021-04-13 10:36 | Outpatient (CLI) | payer MEDICARE, OTHER, SELFPAY ==
--- NOTE | 2021-04-13 10:37 | DI.MG.S_ITS ---
BILATERAL DIGITAL SCREENING MAMMOGRAM 3D/2D WITH CAD: 04/13/2021 CLINICAL: Routine screening. Breast cancer. Comparison is made to exams dated: 04/10/2020 mammogram, 01/24/2019 mammogram, and 01/23/2018 mammogram - [facility]. The tissue of both breasts is heterogeneously dense. This may lower the sensitivity of mammography. Current study was also evaluated with a Computer Aided Detection (CAD) system. There is a benign area of fat necrosis in the right breast. There also are benign post operative findings in the right breast. Additionally, there are benign post operative findings and biopsy clip in the left breast. No significant masses, calcifications, or other findings are seen in either breast. There has been no significant interval change. IMPRESSION: BENIGN There is no mammographic evidence of malignancy. A 1 year screening mammogram is recommended. This exam was interpreted at Station ID: [id number]. NOTE: For mammograms, a report in lay terms will be sent to the patient. Approximately 15% of breast malignancies will not be visualized mammographically. In the management of a palpable breast mass, a negative mammogram must not discourage biopsy of a clinically suspicious lesion. Electronically Signed By: Aris daly/brissa:04/13/2021 11:22:01 copy to: KIARA JAMES letter sent: Normal Exam ACR BI-RADS Category 2: Benign Finding(s) 3342F
== END ==
PROVIDERS: PCP Family Medicine; Referring Provider Internal Medicine Hematology & Oncology; Visit Provider Internal Medicine Hematology & Oncology
DX: Z12.31 Encounter for screening mammogram for malignant neoplasm of breast (principal); C50.911 Malignant neoplasm of unspecified site of right female breast; C50.912 Malignant neoplasm of unspecified site of left female breast
CPT/HCPCS: 77063; 77067

== ENCOUNTER → 2021-05-29 09:34 | Outpatient (CLI) | payer MEDICARE, OTHER, SELFPAY ==
--- NOTE | 2021-05-29 | DI.RAD.S_ITS ---
PROCEDURE: XR KNEE LT 1TO2V INDICATIONS: LEFT LEG PAIN TECHNIQUE: 2 views of the knee were acquired. COMPARISON: None. FINDINGS: Bones: No fractures or dislocations. No suspicious bony lesions. Mild periarticular osteophyte formation. Soft tissues: No joint effusion. No suspicious soft tissue calcifications. IMPRESSION: Tricompartmental periarticular osteophyte formation. Dictated by: Mynor Fong RR Interpreted: Alejandro Alan MD on 05/29/2021 at 10:24 Transcribed by: TOMASZ on 05/29/2021 at 10:25 Approved by: Alejandro Alan M.D. on 05/29/2021 at 13:07
== END ==
PROVIDERS: PCP Family Medicine; Referring Provider Family Medicine; Visit Provider Family Medicine
DX: M79.605 Pain in left leg (principal)
CPT/HCPCS: 73560

== ENCOUNTER → 2021-07-13 12:38 | Outpatient (CLI) | payer MEDICARE, OTHER, SELFPAY ==
--- NOTE | 2021-07-13 | DI.MRI.S_ITS ---
PROCEDURE: MR KNEE LT WO CON INDICATIONS: Other tear of unspecified meniscus, current injury TECHNIQUE: Noncontrast sagittal PD fast spin echo and T2 fast spin echo with fat saturation, sagittal 3-D FLASH with fat saturation; coronal T1 spin echo and PD fast spin echo with fat saturation, and axial PD fast spin echo with fat saturation through the knee. COMPARISON: CR, XR KNEE RT 3V, 04/26/2018, 18:07. [facility], CR, XR KNEE LT 1TO2V, 05/29/2021, 9:38. FINDINGS: Image quality: Excellent. Menisci: There is medial and lateral meniscal extrusions. There is horizontal tear involving the posterior horn and body of the medial meniscus. There is intrasubstance degeneration involving the anterior horn and body of the lateral meniscus. The meniscal root ligaments appear intact. Cruciate ligaments: The anterior and posterior cruciate ligaments appear intact. Medial structures: The medial collateral ligament appears intact. The semimembranosus tendon insertions and meniscocapsular junction appear intact. Visualized portions of the pes anserinus tendons appear normal. No abnormal bursal fluid. Lateral structures: The lateral collateral ligament, long and short heads of the biceps femoris tendon appear intact. The popliteus tendon appears normal. Iliotibial band appears normal. Anterior structures: The quadriceps and patellar tendons appear intact. Patellar alignment is normal. No femoral trochlear dysplasia or ventral trochlear prominence. No edema in the infrapatellar fat pad. Bones and cartilage: No bone marrow contusions or fractures. There is tricompartmental cartilage loss, most pronounced in the medial femorotibial joint and patellofemoral joint. Joint space: There is moderate knee joint effusion. There is a moderate-sized Reed's cyst. Normal appearing synovial plicae are incidentally noted. IMPRESSION: 1. Horizontal tear of the body and posterior horn of the medial meniscus. 2. Intrasubstance degeneration of the anterior horn and body of the lateral meniscus. 3. Medial and lateral meniscal extrusions. 4. 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 5. Moderate knee joint effusion. 6. Moderate-sized Reed cyst. Dictated by: Archana Em M.D. on 07/13/2021 at 13:30 Approved by: Archana Em M.D. on 07/13/2021 at 13:38
== END ==
PROVIDERS: PCP Family Medicine; Referring Provider Orthopaedic Surgery; Visit Provider Orthopaedic Surgery
DX: S83.242A Other tear of medial meniscus, current injury, left knee, initial encounter (principal); M94.262 Chondromalacia, left knee; M25.462 Effusion, left knee; M71.22 Synovial cyst of popliteal space [Baker], left knee
CPT/HCPCS: 73721

== ENCOUNTER → 2022-04-15 09:41 | Outpatient (CLI) | payer MEDICARE, OTHER, SELFPAY ==
--- NOTE | 2022-04-15 09:42 | DI.MG.S_ITS ---
BILATERAL DIGITAL SCREENING MAMMOGRAM 3D/2D WITH CAD POST LUMPECTOMY: 04/15/2022 CLINICAL: Routine screening. Personal history of Bilateral breast cancer. Comparison is made to exams dated: 04/13/2021 mammogram, 04/10/2020 mammogram, and 01/24/2019 mammogram - [facility]. The tissue of both breasts is heterogeneously dense. This may lower the sensitivity of mammography. Current study was also evaluated with a Computer Aided Detection (CAD) system. There is a benign area of fat necrosis in the right breast. There also are benign post operative findings in the right breast. Additionally, there are benign post operative findings and biopsy clip in the left breast. No significant masses, calcifications, or other findings are seen in either breast. There has been no significant interval change. IMPRESSION: BENIGN There is no mammographic evidence of malignancy. A 1 year screening mammogram is recommended. This exam was interpreted at Station ID: [id number]. NOTE: For mammograms, a report in lay terms will be sent to the patient. Approximately 15% of breast malignancies will not be visualized mammographically. In the management of a palpable breast mass, a negative mammogram must not discourage biopsy of a clinically suspicious lesion. Electronically Signed By: Aston Hinson M.D., jr/brissa:04/15/2022 12:10:00 copy to: KIARA JAMES letter sent: Normal Exam ACR BI-RADS Category 2: Benign Finding(s) [id number]
== END ==
PROVIDERS: PCP Family Medicine; Referring Provider Internal Medicine Hematology & Oncology; Visit Provider Internal Medicine Hematology & Oncology
DX: Z12.31 Encounter for screening mammogram for malignant neoplasm of breast; C50.911 Malignant neoplasm of unspecified site of right female breast; C50.912 Malignant neoplasm of unspecified site of left female breast; M81.0 Age-related osteoporosis without current pathological fracture; Z78.0 Asymptomatic menopausal state; Z98.890 Other specified postprocedural states
CPT/HCPCS: 77063; 77067; 77080

== ENCOUNTER → 2023-04-16 09:00 | Outpatient (CLI) | payer MEDICARE, OTHER, SELFPAY ==
--- NOTE | 2023-04-16 09:01 | DI.MG.S_ITS ---
BILATERAL DIGITAL SCREENING MAMMOGRAM 3D/2D WITH CAD: 04/16/2023 CLINICAL: Routine screening. Personal history of bilateral breast cancer. Comparison is made to exams dated: 04/15/2022 mammogram, 04/13/2021 mammogram, and 04/10/2020 mammogram - [facility]. Both breasts are heterogeneously dense, which may obscure small masses (category c / 51-75% glandular tissue). Current study was also evaluated with a Computer Aided Detection (CAD) system. There is a benign area of fat necrosis in the right breast. There also are benign post operative findings in the right breast. Additionally, there are benign post operative findings and biopsy clip in the left breast. No significant masses, calcifications, or other findings are seen in either breast. There has been no significant interval change. IMPRESSION: BENIGN There is no mammographic evidence of malignancy. A 1 year screening mammogram is recommended. This exam was interpreted at Station ID: [id number]. NOTE: For mammograms, a report in lay terms will be sent to the patient. Approximately 15% of breast malignancies will not be visualized mammographically. In the management of a palpable breast mass, a negative mammogram must not discourage biopsy of a clinically suspicious lesion. Electronically Signed By: Jarred oviedo/brissa:04/18/2023 08:55:19 copy to: KIARA JAMES letter sent: Normal Exam ACR BI-RADS Category 2: Benign Finding(s) 3342F
== END ==
PROVIDERS: PCP Family Medicine; Referring Provider Internal Medicine Hematology & Oncology; Visit Provider Internal Medicine Hematology & Oncology
DX: Z12.31 Encounter for screening mammogram for malignant neoplasm of breast (principal); C50.911 Malignant neoplasm of unspecified site of right female breast; C50.912 Malignant neoplasm of unspecified site of left female breast
CPT/HCPCS: 77063; 77067

== ENCOUNTER → 2024-03-03 13:33 | Outpatient (CLI) | payer MEDICARE, OTHER, SELFPAY | PROVIDERS: PCP Family Medicine; Visit Provider Registered Nurse | DX: R30.0 Dysuria (principal) | CPT/HCPCS: 87077; 87086; 87186 ==

== ENCOUNTER → 2024-04-17 08:14 | Outpatient (CLI) | payer MEDICARE, OTHER, SELFPAY ==
--- NOTE | 2024-04-17 08:16 | DI.MG.S_ITS ---
BILATERAL DIGITAL SCREENING MAMMOGRAM 3D/2D WITH CAD POST LUMPECTOMY: 04/17/2024 CLINICAL: Routine screening. Personal History of Bilateral Breast Cancer. Comparison is made to exams dated: 04/16/2023 mammogram, 04/15/2022 mammogram, and 04/13/2021 mammogram - [facility]. Both breasts are heterogeneously dense, which may obscure small masses (category c / 51-75% glandular tissue). Current study was also evaluated with a Computer Aided Detection (CAD) system. There is a benign area of fat necrosis in the right breast. There also are benign post operative findings in the right breast. Additionally, there are benign post operative findings and biopsy clip in the left breast. No significant masses, calcifications, or other findings are seen in either breast. There has been no significant interval change. IMPRESSION: BENIGN There is no mammographic evidence of malignancy. A 1 year screening mammogram is recommended. This exam was interpreted at Station ID: [id number]. NOTE: For mammograms, a report in lay terms will be sent to the patient. Approximately 15% of breast malignancies will not be visualized mammographically. In the management of a palpable breast mass, a negative mammogram must not discourage biopsy of a clinically suspicious lesion. Electronically Signed By: Reji gray/brissa:04/17/2024 08:55:57 copy to: KIARA JAMES letter sent: Normal Exam ACR BI-RADS Category 2: Benign Finding(s) 3342F
== END ==
PROVIDERS: PCP Family Medicine; Referring Provider Family Medicine; Visit Provider Family Medicine
DX: Z12.31 Encounter for screening mammogram for malignant neoplasm of breast (principal); Z85.3 Personal history of malignant neoplasm of breast; R92.333 Mammographic heterogeneous density, bilateral breasts
CPT/HCPCS: 77063; 77067

== ENCOUNTER → 2024-06-22 12:34 | Outpatient (CLI) | payer MEDICARE, OTHER, SELFPAY ==
[2024-06-22 13:44] LABS: Add Manual Diff / Slide Review NO; Basophils Absolute Auto 100 /uL (0-100); Basophils Percent Auto 1.4 % (0-2); Eosinophils Absolute Auto 200 /uL (0-450); Eosinophils Percent Auto 3.4 % (2-4); Hematocrit 38.1 % (36-46); Hemoglobin 12.9 g/dL (12.0-16.0); Lymphocytes Absolute Auto 2600 /uL (1100-4500); Lymphocytes Percent Auto 41.6 % (25-40); Mean Corpuscular HGB Conc 33.8 % (30-36); Mean Corpuscular Hemoglobin 32.3 PG (26-34); Mean Corpuscular Volume 95.4 fL (80-100); Monocytes Absolute Auto 300 /uL (0-900); Monocytes Percent Auto 5.3 % (3-14); Neutrophils Absolute Auto 3000 /uL (1500-7000); Neutrophils Percent Auto 48.3 % (50-75); Platelet Count 211 X10^3/uL (150-400); Red Cell Distribution Width 12.9 % (11.6-14.8); White Blood Cell Count 6.2 X10^3/uL (4.5-11.0)
[2024-06-22 13:50] LABS: Alanine Aminotransferase 15 IU/L (<35); Albumin Globulin Ratio 1.5 (1.0-2.8); Alkaline Phosphatase 50 U/L (38-126); Aspartate Aminotransferase 30 IU/L (14-36); BUN Creatinine Ratio 22.4 (6-22); Bilirubin Total 0.5 mg/dL (0.2-1.3); Blood Urea Nitrogen 17 mg/dL (7-17); Calcium 9.2 mg/dL (8.4-10.2); Carbon Dioxide 27 mmol/L (22-32); Chloride 104 mmol/L (98-107); Estimated Glomerular Filt Rate > 60 mL/min (>60); Globulin 2.6 g/dL (1.7-4.1); Glucose 90 mg/dL (80-110); HEMOLYSIS < 15 (0-50); Potassium 4.4 mmol/L (3.4-5.1); Sodium 136 mmol/L (137-145); Total Protein 6.6 g/dL (6.3-8.2)
== END ==
PROVIDERS: PCP Family Medicine; Referring Provider Internal Medicine Hematology & Oncology; Visit Provider Internal Medicine Hematology & Oncology
DX: M85.80 Other specified disorders of bone density and structure, unspecified site (principal)
CPT/HCPCS: 36415; 80053; 85025

== ENCOUNTER → 2025-04-18 09:11 | Outpatient (CLI) | payer MEDICARE, OTHER, SELFPAY ==
--- NOTE | 2025-04-18 09:12 | DI.MG.S_ITS ---
MM screening mammo BI: 04/18/2025. BI-RADS: 2 CLINICAL: 75-year old female for bilateral screening mammogram. No Tyrer-Cuzick risk score calculation due to the patient's personal history of breast cancer. Patient reports a history of bilateral breast carcinoma diagnosed at age 60. Status-post bilateral lumpectomies with radiation therapy and hormonal therapy. PRIOR EXAMS 04/17/2024, 04/16/2023, 04/15/2022, 04/13/2021. MAMMOGRAPHY TECHNIQUE: 2D and 3D (tomosynthesis) digital mammographic views obtained, with additional images as needed for full coverage. Current study was also evaluated with a Computer Aided Detection (CAD) system. DENSITY C. The breasts are heterogeneously dense, which may obscure small masses. MAMMOGRAPHY FINDINGS Right: Benign-appearing calcification and post-surgical changes noted on the right. There are no suspicious masses, calcifications, or other findings in the breast. Left: Biopsy marker present on the left. Benign-appearing post-surgical changes noted on the left. There are no suspicious masses, calcifications, or other findings in the breast. IMPRESSION: * No evidence of malignancy with benign findings. RECOMMENDATIONS Bilateral * Annual screening mammography. OVERALL ASSESSMENT CATEGORY BI-RADS-2: Benign. The [employer] recommends annual screening mammography beginning at age 40 for women with average risk of breast cancer. ELECTRONICALLY SIGNED: Isaura Marsh M.D. on 04/18/2025 at 09:07:17 PM PT Interpreting Station ID: [id number]
== END ==
PROVIDERS: PCP Family Medicine; Referring Provider Family Medicine; Visit Provider Family Medicine
DX: Z12.31 Encounter for screening mammogram for malignant neoplasm of breast (principal); Z85.3 Personal history of malignant neoplasm of breast; R92.333 Mammographic heterogeneous density, bilateral breasts
CPT/HCPCS: 77063; 77067

== ENCOUNTER → 2025-04-30 14:07 | Outpatient (CLI) | payer MEDICARE, OTHER, SELFPAY ==
--- NOTE | 2025-04-30 14:10 | DI.RAD.S_ITS ---
PROCEDURE: XR DEXA AXIAL SKELETON INDICATIONS: Osteoporosis screening COMPARISON: [facility], CR, XR DEXA AXIAL SKELETON, 04/15/2022, 9:58. [facility], CR, XR DEXA AXIAL SKELETON, 04/10/2020, 15:19. FINDINGS: Lumbar Spine: L1-L4. Bone mineral density 0.971 g/cm2, T score -0.7, there is significant interval increase in bone mineral density 7.6%*. Right Femoral Neck: Bone mineral density 0.686 g/cm2, T score -1.5. Right Hip: Bone mineral density 0.795 g/cm2, T score -1.2, no significant interval change. Fracture Risk Calculation (when applicable): 10-year fracture risk of a major osteoporotic fracture 10 percent and of a hip fracture 2.2 percent. (T score greater or equal to -1.0 to: NORMAL) (T score from -1.1 to -2.4: OSTEOPENIA) (T score less than or equal to -2.5: OSTEOPOROSIS) IMPRESSION: Osteopenia. There is significant interval increase in bone mineral density at the lumbar spine. Follow-up guidelines as follows: Osteoporosis: Consider a repeat DEXA and Vertebral Fracture Assessment (VFA) exam in 2 years or sooner if medically necessary, to reassess this patient's status. Osteopenia: Consider a repeat DEXA in 2-3 years to reassess this patient's status, or if there is a new clinical indication. Normal: Consider a repeat DEXA in 5 years or sooner, or if there is a new clinical indication. All treatment decisions require clinical judgment and consideration of individual patient factors, including patient preferences, comorbidities, previous drug use, risk factors not captured in the FRAX model (e.g., frailty, falls, vitamin D deficiency, increased bone turnover, interval significant decline in bone density ) and possible under- or over-estimation of fracture risk by FRAX. In addition, the NOF Guide recommends that FDA-approved medical therapies be considered in postmenopausal women and men age >= 50 years with a: * Hip or vertebral (clinical or morphometric) fracture * T-score of <=-2.5 at the spine or hip * Ten-year fracture probability by FRAX of >= 3% for hip fracture or >=20% for major osteoporotic fracture. Dictated by: Alessio Gregory M.D. on 04/30/2025 at 16:40 Approved by: Alessio Gregory M.D. on 04/30/2025 at 16:42
== END ==
LOC: RAD 14:09
PROVIDERS: PCP Family Medicine; Referring Provider Family Medicine; Visit Provider Family Medicine
DX: M81.0 Age-related osteoporosis without current pathological fracture (principal)
CPT/HCPCS: 77080